=== PATIENT | female | born 1955 | race Caucasian/White ===

== ENCOUNTER 2016-07-11 10:40 | Observation (INO) ==
[2016-07-11] MEDS ORDERED: 0.9 % Sodium Chloride 1,000 ML IVC ONE (13:50)
[2016-07-11 14:24] LABS: Bilirubin,Urine Negative (Negative); Blood,Urine Negative (Negative); Clarity,Urine Clear (Clear); Color,Urine Yellow (Yellow); Glucose,Urine (UA) Normal (Normal); Ketones,Urine Negative (Negative); Leukocyte Esterase,Urine Negative (Negative); Nitrite,Urine Negative (Negative); Protein,Urine 30 mg/dL (Neg-Trace); Specific Gravity,Urine 1.023 (1.010-1.025); Urobilinogen,Urine Normal (Normal)
[2016-07-11 14:25] LABS: Basophils # 0.1 K/mcL (0.0-0.2); Basophils % 0.2 %; Hematocrit 35.2 % (35.3-44.9); Hemoglobin 11.2 g/dL (11.5-15.4); Immature Granulocytes % 1.4 % (0-4); Immature Platelets 5.8 % (1.1-6.1); Lymphocytes # 2.1 K/mcL (0.6-4.6); Lymphocytes % 8.5 %; Mean Corpuscular HGB Conc 31.8 g/dL (31.6-35.5); Mean Corpuscular Hemoglobin 26.3 pg (28.0-33.3); Mean Corpuscular Volume 82.6 fL (83.0-100.0); Mean Platelet Volume 10.5 fL (9.4-12.4); Monocytes # 1.2 K/mcL (0.0-1.3); Monocytes % 4.9 %; Neutrophils # 20.8 K/mcL (1.6-8.9); Platelet Count 337 K/mcL (140-400); Red Blood Count 4.26 M/mcL (3.82-4.97); Red Cell Distribution Width 15.5 % (11.5-14.5)
[2016-07-11 14:27] LABS: Bacteria,Urine None Seen per hpf (None-Few); Hyaline Casts,Urine None Seen per lpf (None-Few); RBC,Urine 0-3 per hpf (0-3); Squamous Epithelial Cell,Urine Many per lpf (None-Few)
[2016-07-11 14:40] LABS: Alanine Aminotransferase 14 Units/L (0-55); Albumin 3.4 g/dL (3.5-5.0); Albumin/Globulin Ratio 0.7 (1.1-2.2); Alkaline Phosphatase 107 Units/L (38-126); Aspartate Amino Transferase 11 Units/L (5-34); BUN/Creatinine Ratio 20 (6-26); Bilirubin,Direct 0.2 mg/dL (0.0-0.5); Bilirubin,Indirect 0.2 mg/dL (0.0-1.2); Bilirubin,Total 0.4 mg/dL (0.2-1.2); Blood Urea Nitrogen 17 mg/dL (7-20); Calcium 10.2 mg/dL (8.6-10.8); Carbon Dioxide 25 mEq/L (19-29); Chloride 101 mEq/L (98-109); Globulin 4.8 g/dL (2.4-3.5); Glucose 132 mg/dL (70-99); Lipase 21 Units/L (8-78); Osmolality,Calculated 291 (280-300); Potassium 3.9 mEq/L (3.5-4.5); Sodium 139 mEq/L (136-145); Total Protein 8.2 g/dL (6.0-8.3); eGFR For African Americans > 60 (> 60); eGFR For Non-African Americans > 60 (> 60)
[2016-07-11] MEDS ORDERED: *HR* HYDROmorphone (PF) 1 MG/ML SYRINGE IVP ONE ×2 (14:49→16:18)
[2016-07-11] MEDS ORDERED: Ondansetron 4 MG/2 ML VIAL IVP ONE (14:49)
--- NOTE | 2016-07-11 15:40 | Emergency Department Note ---
Disposition Clinical Impression: Abdominal pain, Calculus of kidney, Uncontrolled pain, Obesity, Inadequate social support, Diabetes mellitus, Renal cyst, Renal adenoma, Hypertension Disposition: Admitted As Inpatient Referrals: Terrance Mariano MD [Primary Care Provider] - Forms: Work/School Release, ED Satisfaction Letter General Adult HPI - General Chief complaint: ED Abdominal Pain Stated complaint: abd pain Time Seen by Provider: 07/11/16 13:50 Source: patient, EMS Limitations: no limitations - History of Present Illness HPI Narrative: 60-year-old female reports emergency department complaining of severe right rib and flank pain. The patient reports she has a history of kidney stones. She also has a history of recent lumbar surgery about 2 months ago at [facility]. The patient reports she was seen by her urologist last Saturday. She reports she had persistent pain and went to urgent care Saturday evening. She followed up early this week with her primary care physician for the same concern. She reports the pain started worsening yesterday. The patient is diabetic and lives alone at home, she reports her pain is been uncontrolled, she called EMS and was transferred to the ED for evaluation. The patient denies any anterior chest pain or left arm and left jaw pain. She describes right rib pain anterior abdominal pain under the right ribs and some flank pain. The patient had recent spinal surgery about 2 months ago but denies any lower back pain bowel or bladder problems or acute weakness or numbness in the legs. There is no history of vomiting or diarrhea no fever cough runny nose or ear pain or sore throat no rashes. The patient reports increasing pain in the right flank rib and anterior upper abdominal area. She has never had a cholecystectomy or suni gallbladder problems. The patient reports the pain is constant and also worsens with movement. There is no history of sciatica. No recent falls or injuries. Pain Scale: 10 - Related Data Home Medications Medication Instructions Recorded Confirmed Aspirin 81 mg PO DAILY 07/11/16 07/11/16 Atorvastatin [Lipitor] 5 mg PO HS 07/11/16 07/11/16 Carvedilol [Coreg] 25 mg PO BID 07/11/16 07/11/16 Folic Acid 1 mg PO DAILY 07/11/16 07/11/16 Gabapentin [Gabapentin] 600 mg PO BID 07/11/16 07/11/16 Hydrochlorothiazide 12.5 mg PO DAILY 07/11/16 07/11/16 LORazepam [Ativan] 1 mg PO DAILY PRN 07/11/16 07/11/16 Latanoprost [Xalatan] 1 drop BOTH EYES HS 07/11/16 07/11/16 Leflunomide [Arava] 20 mg PO DAILY 07/11/16 07/11/16 MethylPREDNISolone 4 mg PO PER PKG DI 07/11/16 07/11/16 [Methylprednisolone] Ondansetron HCl [Zofran] 4 mg PO Q8H PRN 07/11/16 07/11/16 Potassium Chloride [Klor-Con 10] 10 meq PO BID 07/11/16 07/11/16 SitaGLIPtin [Januvia] 100 mg PO DAILY 07/11/16 07/11/16 Allergies Allergy/AdvReac Type Severity Reaction Status Date / Time levofloxacin [From Levaquin] Allergy See Verified 01/07/16 00:43 Comments sulfamethoxazole Allergy See Verified 01/07/16 00:43 [From Bactrim] Comments trimethoprim [From Bactrim] Allergy See Verified 01/07/16 00:43 Comments All systems ED: reviewed and negative except as stated. Past Medical History - Past Medical History Medical history: Reports: diabetes, hypertension, kidney stones, RA Psychiatric history: Reports: no psych history PRODUCTION ANALYST history: Reports: no PRODUCTION ANALYST history - Social History Smoking Status: Never smoker Smokeless Tobacco Status: No Alcohol use: Reports: none Drug use: Reports: none Physical Exam - General Limitations: no limitations General appearance: alert, anxious - Head Head exam: atraumatic, normocephalic, normal inspection - Eye Eye exam: Present: normal appearance, PERRL, EOMI. Absent: scleral icterus, conjunctival injection, miosis, mydriasis - ENT ENT exam: normal exam, normal oropharynx, mucous membranes moist, TM's normal bilaterally, normal external ear exam - Neck Neck exam: Present: normal inspection, full ROM, trachea midline. Absent: tenderness - Chest Chest inspection: Present: normal inspection, symmetric chest wall rise, tenderness, other (No trauma crepitance or step-off, no evidence of injury.). Absent: rash - Respiratory Respiratory exam: Present: normal lung sounds bilaterally. Absent: respiratory distress - Cardiovascular Cardiovascular exam: Present: regular rate, normal rhythm, normal heart sounds - Abdominal Exam Abdominal exam: Present: soft, tenderness, normal bowel sounds. Absent: distention, guarding, rigidity Abdominal tenderness: Present: RUQ, moderate. Absent: epigastrium - Extremities Exam Extremities exam: Present: normal inspection, full ROM, normal capillary refill. Absent: tenderness, pedal edema, joint swelling, calf tenderness - Expanded Lower Extremity Exam Lower leg exam: Absent: Homans' sign Neurovascular/Tendon exam: Absent: motor deficit, sensory deficit, tendon deficit, extremity cold to touch - Back Exam Back exam: Present: normal inspection, full ROM, vertebral tenderness. Absent: tenderness, CVA tenderness (R), CVA tenderness (L), straight leg raise (R), straight leg raise (L) - Neurological Exam Neurological exam: Present: alert, oriented X3, CN II-XII intact. Absent: motor sensory deficit - Psychiatric Psychiatric exam: Present: normal affect, normal mood - Skin Skin exam: Present: warm, dry, intact, normal color. Absent: rash, cyanosis, diaphoresis, erythema, pallor, mottled Course Vital Signs Temperature 98.6 F 07/11/16 11:02 Pulse Rate 82 07/11/16 11:02 Respiratory Rate 16 07/11/16 11:02 Blood Pressure 163/93 07/11/16 11:02 O2 Sat by Pulse Oximetry 99 07/11/16 11:02 Temperature 98.6 F 07/11/16 11:02 Pulse Rate 72 07/11/16 18:04 Respiratory Rate 18 07/11/16 14:15 Blood Pressure 159/91 07/11/16 18:04 O2 Sat by Pulse Oximetry 96 07/11/16 18:04 Oxygen Delivery Oxygen Delivery Room Air Medical Decision Making - [facility] Narrative Medical decision making narrative: Patient was monitored in the emergency department and was given 2 doses of Dilaudid. She still had significant pain. This is the patient's fourth visit to a provider in the last several days for a similar complaint. The patient has marked leukocytosis, had recent back surgery, and has persistent flank pain not been responding to outpatient medications. The patient is elderly, lives alone at home, and does not appear to be able to manage her pain at home. She does not think she can go home secondary to the pain. Based on her recurrent visits and pain significant enough to drive her diastolic pressure to 115, I thought it would be appropriate to observe the patient the hospital for pain control and further evaluation for myelitis or other pathologies if deemed necessary. She is afebrile and her lactate is negative. Her leukocytosis may be demargination or secondary to steroids or possibly undetected infection. Her urinalysis does not indicate significant infection. Compared to her previous scan, the patient appears to have either passed a kidney stone on the right or possibly is still experiencing renal colic. In addition the patient has what appears to be a renal adenoma and renal cysts. The patient was given vancomycin and Zosyn as initial antibiotic therapy I have discussed case with the hospitalist on-call who recommends renal ultrasound and is accepted the patient for admission. - Lab Data Lab results reviewed: Yes I reviewed the patient's lab results. Result diagrams: 07/11/16 14:11 07/11/16 14:11 Lab Results 07/11/16 07/11/16 07/11/16 Range/Units 13:04 14:10 14:11 WBC 24.4 H (4.3-11.1) K/mcL RBC 4.26 (3.82-4.97) M/mcL Hgb 11.2 L (11.5-15.4) g/dL Hct 35.2 L (35.3-44.9) % MCV 82.6 L (83.0-100.0) fL MCH 26.3 L (28.0-33.3) pg MCHC 31.8 (31.6-35.5) g/dL RDW 15.5 H (11.5-14.5) % Plt Count 337 (140-400) K/mcL MPV 10.5 (9.4-12.4) fL Immature Gran % 1.4 (0-4) % Seg Neutrophils % 85.0 % Lymphocytes % 8.5 % Monocytes % 4.9 % Eosinophils % 0.0 % Basophils % 0.2 % Neutrophils # 20.8 H (1.6-8.9) K/mcL Lymphocytes # 2.1 (0.6-4.6) K/mcL Monocytes # 1.2 (0.0-1.3) K/mcL Eosinophils # 0.0 (0.0-0.6) K/mcL Basophils # 0.1 (0.0-0.2) K/mcL Immature Plt Fraction 5.8 (1.1-6.1) % Sodium (136-145) mEq/L Potassium (3.5-4.5) mEq/L Chloride (98-109) mEq/L Carbon Dioxide (19-29) mEq/L BUN (7-20) mg/dL Creatinine (0.57-1.11) mg/dL Est GFR ( Amer) (> 60) Est GFR (Non-Af Amer) (> 60) BUN/Creatinine Ratio (6-26) Glucose (70-99) mg/dL Calculated Osmolality (280-300) Lactic Acid (0.5-2.2) mmol/L Calcium (8.6-10.8) mg/dL Total Bilirubin (0.2-1.2) mg/dL Direct Bilirubin (0.0-0.5) mg/dL Indirect Bilirubin (0.0-1.2) mg/dL AST (5-34) Units/L ALT (0-55) Units/L Alkaline Phosphatase (38-126) Units/L Troponin I (0-0.03) ng/mL C-Reactive Protein 9 H (Less than 5) mg/L Serum Total Protein (6.0-8.3) g/dL Albumin (3.5-5.0) g/dL Globulin (2.4-3.5) g/dL Albumin/Globulin Ratio (1.1-2.2) Lipase (8-78) Units/L Urine Color Yellow (Yellow) Urine Clarity Clear (Clear) Urine pH 5.0 (5.0-8.0) pH Units Ur Specific Warren 1.023 (1.010-1.025) Urine Protein 30 H (Neg-Trace) mg/dL Urine Glucose (UA) Normal (Normal) mg/dL Urine Ketones Negative (Negative) mg/dL Urine Blood Negative (Negative) Urine Nitrite Negative (Negative) Urine Bilirubin Negative (Negative) Urine Urobilinogen Normal (Normal) mg/dL Ur Leukocyte Esterase Negative (Negative) Urine Microscopic RBC 0-3 (0-3) per hpf Urine Microscopic WBC 3-5 H (0-3) per hpf Ur Squamous Epith Cells Many H (None-Few) per lpf Urine Bacteria None Seen (None-Few) per hpf Hyaline Casts None Seen (None-Few) per lpf Ur Culture Indicated? NO (NO) 07/11/16 07/11/16 07/11/16 Range/Units 14:11 14:11 15:12 WBC (4.3-11.1) K/mcL RBC (3.82-4.97) M/mcL Hgb (11.5-15.4) g/dL Hct (35.3-44.9) % MCV (83.0-100.0) fL MCH (28.0-33.3) pg MCHC (31.6-35.5) g/dL RDW (11.5-14.5) % Plt Count (140-400) K/mcL MPV (9.4-12.4) fL Immature Gran % (0-4) % Seg Neutrophils % % Lymphocytes % % Monocytes % % Eosinophils % % Basophils % % Neutrophils # (1.6-8.9) K/mcL Lymphocytes # (0.6-4.6) K/mcL Monocytes # (0.0-1.3) K/mcL Eosinophils # (0.0-0.6) K/mcL Basophils # (0.0-0.2) K/mcL Immature Plt Fraction (1.1-6.1) % Sodium 139 (136-145) mEq/L Potassium 3.9 (3.5-4.5) mEq/L Chloride 101 (98-109) mEq/L Carbon Dioxide 25 (19-29) mEq/L BUN 17 (7-20) mg/dL Creatinine 0.84 (0.57-1.11) mg/dL Est GFR ( Amer) > 60 (> 60) Est GFR (Non-Af Amer) > 60 (> 60) BUN/Creatinine Ratio 20 (6-26) Glucose 132 H (70-99) mg/dL Calculated Osmolality 291 (280-300) Lactic Acid 2.1 (0.5-2.2) mmol/L Calcium 10.2 (8.6-10.8) mg/dL Total Bilirubin 0.4 (0.2-1.2) mg/dL Direct Bilirubin 0.2 (0.0-0.5) mg/dL Indirect Bilirubin 0.2 (0.0-1.2) mg/dL AST 11 (5-34) Units/L ALT 14 (0-55) Units/L Alkaline Phosphatase 107 (38-126) Units/L Troponin I 0.00 (0-0.03) ng/mL C-Reactive Protein (Less than 5) mg/L Serum Total Protein 8.2 (6.0-8.3) g/dL Albumin 3.4 L (3.5-5.0) g/dL Globulin 4.8 H (2.4-3.5) g/dL Albumin/Globulin Ratio 0.7 L (1.1-2.2) Lipase 21 (8-78) Units/L Urine Color (Yellow) Urine Clarity (Clear) Urine pH (5.0-8.0) pH Units Ur Specific Warren (1.010-1.025) Urine Protein (Neg-Trace) mg/dL Urine Glucose (UA) (Normal) mg/dL Urine Ketones (Negative) mg/dL Urine Blood (Negative) Urine Nitrite (Negative) Urine Bilirubin (Negative) Urine Urobilinogen (Normal) mg/dL Ur Leukocyte Esterase (Negative) Urine Microscopic RBC (0-3) per hpf Urine Microscopic WBC (0-3) per hpf Ur Squamous Epith Cells (None-Few) per lpf Urine Bacteria (None-Few) per hpf Hyaline Casts (None-Few) per lpf Ur Culture Indicated? (NO) - Radiology Data Radiology results reviewed: Yes I reviewed the patient's radiology results.
[2016-07-11] MEDS ORDERED: Vancomycin 1,000 MG in D5% in Water 250 ML IVPB ONE (19:31)
[2016-07-11] MEDS ORDERED: Piperacillin/Tazobactam 3.375 GM in D5% in Water (Mini-Bag+) 100 ML IVPB ONE (19:32)
--- NOTE | 2016-07-11 20:59 | Internal Med History&Physical ---
<Sylvia Pacheco - Last Filed: 07/11/16 23:10> Date of Encounter: 07/11/16 Time of Encounter: 20:30 Assessment and Plan (1) Right flank pain Current visit: Yes Status: Acute Patient complains of severe Right flank pain that radiates to the back. CT abdomen/pelvis showed multiple bilateral renal cyst, an nonobstructing renal pole calculus on the left with no evidence of ureteral calculus. Retroperitoneal ultrasound showed kidneys of normal thickness and cortical echogenicity with no hydronephrosis CXR showed no acute process. Etiology of right flank pain unclear at this time. Consider possible pancreatitis, gastric ulcer, or stone in biliary tree. Monitor with morning CBC, CMP, LFTs, amylase,lipase, lipid panel. IVF, clear liquid diet Zofran for nausea pain control with morphine and percocet Zanaflex. (2) Leukocytosis Current visit: Yes Status: Acute WBC 24.4 Likely reactive secondary to medrol dose pack. Patient does not currently meet sepsis criteria. She is afebrile, and vitals are within normal limits except for mild hypertension. repeat urine culture and blood culture pending. Continue to monitor. Qualifiers: Leukocytosis type: unspecified Qualified Code(s): D72.829 - Elevated white blood cell count, unspecified (3) GERD (gastroesophageal reflux disease) Current visit: Yes Status: Acute Protonix Qualifiers: Esophagitis presence: esophagitis presence not specified Qualified Code(s) : K21.9 - Gastro-esophageal reflux disease without esophagitis (4) Rheumatoid arthritis Current visit: Yes Status: Chronic Continue home medication Qualifiers: Rheumatoid arthritis location: knee Rheumatoid factor presence: unspecified presence Laterality: unspecified laterality Qualified Code(s): M06.9 - Rheumatoid arthritis, unspecified (5) Diabetes mellitus Current visit: Yes Status: Chronic hold Januvia Sugar appears well controlled currently. Low dose sliding scale insulin clear liquid diet. Qualifiers: Diabetes mellitus type: type 2 Diabetes mellitus complication status: with unspecified complications Diabetes mellitus jail insulin use: unspecified jail insulin use status Qualified Code(s): E11.8 - Type 2 diabetes mellitus with unspecified complications (6) Hypertension Current visit: Yes Status: Chronic patient has essential HTN, and is currently Hypertensive, likely due to pain. Pain control Holding HCTZ until pancreatitis ruled out. Qualifiers: Hypertension type: essential hypertension Qualified Code(s): I10 - Essential (primary) hypertension (7) Obesity Current visit: Yes Status: Acute Qualifiers: Obesity type: due to excess calories Obesity severity: non-morbid Qualified Code(s): E66.09 - Other obesity due to excess calories (8) DVT prophylaxis Current visit: Yes Status: Acute heparin 5,000 units SQ Q8HR Protonix for GI prophylaxis Internal Medicine - H&P: HPI Chief complaint: right flank pain Admitted From: Emergency Dept Plans for Post Hospital Care: Home History of present illness: PCP: Terrance Wheat Ms. Penn is a 60 year old female with PMHx of DM, GERD, HTN, Rheumatoid arthriti, asthma. She started having mild right flank pain that started in May. She saw a Urologist at that time (the ), and a CT scan was ordered that sowed bilateral kidney stones. He stated the stones were not large enough for removal, so they should pass on their own. Late Saturday night, she started getting muscle spasms in her right flank area, and her flank pain was slowly getting worse. She states the pain is located under her right rib and radiates to her back, and states the severity is 8/10. She went to urgent care on Saturday and got a urinalysis. She went to her PCP yesterday and received a medrol dose pack. This morning, the pain was significantly increased so she called the squad. She reports nausea but no vomiting, reports fever and chills. Denies hematuria and hematochezia, denies syncope but reports some dizziness. She has mild intermittent shortness of breath with her pain but denies any chest pain. Social Hx: lives alone at home. Does not smoke or drink alcohol, denies illicit drug use. Family Hx: father in 80s and had CHF, moter at 76 from a stroke. Surgical Hx: right thoracotomy in September 1999, bilateral knee replacement: Left on November 2007, right on November 2012, cholecystectomy in 2009, hysterectomy in 2012 , umbillical hernia surgery in June 2011 Past Med Surg Social Fam HX - Past Medical History Medical history: diabetes, hypertension, kidney stones, RA Psychiatric history: no psych history - Social History Smoking Status: Never smoker Smokeless Tobacco Status: No Alcohol use: none Drug use: none Internal Medicine - H&P: Meds Aspirin 81 mg PO DAILY 07/11/16 [History] Atorvastatin [Lipitor] 5 mg PO HS 07/11/16 [History] Carvedilol [Coreg] 25 mg PO BID 07/11/16 [History] Folic Acid 1 mg PO DAILY 07/11/16 [History] Gabapentin [Gabapentin] 600 mg PO BID 07/11/16 [History] Hydrochlorothiazide 12.5 mg PO DAILY 07/11/16 [History] LORazepam [Ativan] 1 mg PO DAILY PRN 07/11/16 [History] Latanoprost [Xalatan] 1 drop BOTH EYES HS 07/11/16 [History] Leflunomide [Arava] 20 mg PO DAILY 07/11/16 [History] MethylPREDNISolone [Methylprednisolone] 4 mg PO PER PKG DI 07/11/16 [History] Ondansetron HCl [Zofran] 4 mg PO Q8H PRN 07/11/16 [History] Potassium Chloride [Klor-Con 10] 10 meq PO BID 07/11/16 [History] SitaGLIPtin [Januvia] 100 mg PO DAILY 07/11/16 [History] Allergies levofloxacin [From Levaquin] Allergy (Verified 01/07/16 00:43) See Comments sulfamethoxazole [From Bactrim] Allergy (Verified 01/07/16 00:43) See Comments trimethoprim [From Bactrim] Allergy (Verified 01/07/16 00:43) See Comments All Systems PM: A 10-system review of systems was performed and is negative for pertinent findings except as documented above in the HPI. - Constitutional Constitutional: chills, fever(s), no falls, no lethargy - Cardiovascular Cardiovascular ROS IM: no chest pain, no diaphoresis, no syncope - Respiratory Respiratory: no cough, no dyspnea - Gastrointestinal Gastrointestinal: abdominal pain, no diarrhea, no hematochezia, no melena - Genitourinary Genitourinary: no hematuria - Musculoskeletal Musculoskeletal ROS IM: back pain - Neurological Neurological ROS: dizziness, no frequent falls, no headache(s) - Constitutional Vitals: Temp Pulse Resp BP Pulse Ox 98.4 F 72 18 154/84 96 07/11/16 20:46 07/11/16 18:04 07/11/16 20:46 07/11/16 20:46 07/11/16 18:04 General appearance: Present: A&O X 3, pleasant, no acute distress, answers questions appropriately - Head Head exam: Present: atraumatic, normocephalic - Neck Neck exam general surgery: Present: supple, trachea midline - Respiratory Respiratory exam: Present: CTAB - Cardiovascular Cardiovascular exam: Present: RRR, +S1, +S2 - GI/Abdominal GI/Abdominal exam: Present: normal bowel sounds, tenderness (tenderness in epigastric area and RUQ, right flank. ) - Extremities Exam Extremities exam: Absent: cyanotic, pedal edema - Back Exam Back exam: Present: CVA tenderness (R), muscle spasm (on right CVA) - Neurological Exam Neurological exam: Present: alert, oriented X3, no focal deficits Internal Med - H&P Results - Labs CBC & Chem 7: 07/11/16 14:11 07/11/16 14:11 <Arjun Vanegas - Last Filed: 07/12/16 00:04> Date of Encounter: 07/11/16 Internal Medicine - H&P: HPI History of present illness: Ms. Penn is a 60 year old female - EENT Eyes: no blurry vision, no change in vision Ears: no ear pain, no tinnitus Nose, mouth and throat: no nasal congestion, no sinus pain, no sinus pressure - Cardiovascular Cardiovascular ROS IM: no chest pain, no dyspnea - Respiratory Respiratory: no cough, no dyspnea - Gastrointestinal Gastrointestinal: abdominal pain, no diarrhea, no hematochezia, no melena - Genitourinary Genitourinary: no dysuria, no hematuria - Musculoskeletal Musculoskeletal ROS IM: back pain - Integumentary Integumentary IM: no rash, no jaundice - Neurological Neurological ROS: no focal weakness, no frequent falls, no headache(s) - Psychiatric Psychiatric: no anxiety, no depression - Hematologic/Lymphatic Hematologic/Lymphatic: no easy bruising, no lymphadenopathy - Allergic/Immunologic Allergic/Immunologic: no wheezing, no GI upset with certain foods - Constitutional Vitals: Temp Pulse Resp BP Pulse Ox 97.4 F L 66 15 188/97 92 L 07/11/16 23:21 07/11/16 23:21 07/11/16 23:21 07/11/16 23:21 07/11/16 23:21 General appearance: Present: cooperative, A&O X 3, pleasant, answers questions appropriately - Eye Eye exam: Present: PERRL. Absent: scleral icterus - ENT ENT exam: Present: mucous membranes moist, normal exam - Respiratory Respiratory exam: Present: CTAB. Absent: chest wall tenderness, rales, respiratory distress, rhonchi, wheezes - Cardiovascular Cardiovascular exam: Present: RRR, +S1, +S2 - GI/Abdominal GI/Abdominal exam: Present: normal bowel sounds, soft, tenderness, no peritoneal signs. Absent: guarding, hepatomegaly, mass, rebound, splenomegaly - Extremities Exam Extremities exam: Absent: calf tenderness, joint swelling, tenderness - Back Exam Back exam: Present: muscle spasm (right posterior flank area radiating to RUQ). Absent: CVA tenderness (L), CVA tenderness (R) - Neurological Exam Neurological exam: Present: alert, CN II-XII intact, oriented X3, no focal deficits - Psychiatric Psychiatric exam: Present: normal affect, normal mood - Skin Skin exam: Present: dry, warm. Absent: rash Internal Med - H&P Results - Labs CBC & Chem 7: 07/11/16 14:11 07/11/16 14:11 - Attending Attestation I discussed the pt [place], PMH, ROS, lab data, and exam findings with Dr. Pacheco. I then saw and examined patient independently as well. CT scan reviewed, Renal U/S reviewed, lab data reviewed. I do not suspect kidney stone as source of her pain. Based upon exam and history, it does sound musculoskeletal in nature. Will also check CXR with rib views to rule out rib fracture. However, patient gives no history of fall or trauma. LFT's are unremarkable. WBC most likely due to steroid effect. No history to suggest acute infection. Pain is reproducible and spasmodic, consistent with muscular and/or skeletal etiology. I agree with pain control, muscle relaxant (Valium), and repeat labs. Discussed with patient at length. If pain does not improve and/or worsens, then consider GI or general surgery consult tomorrow. On exam, however, I have no suspicion of surgical abdomen at the present time. Other than my comments and exam findings, I agree with Dr. Pacheco' assessment and plan.
[2016-07-11] MEDS ORDERED: Ondansetron 4 MG/2 ML VIAL IVP PRN (21:21)
[2016-07-11] MEDS ORDERED: *HR* Morphine 2 MG/ML SYRINGE ONE (21:26)
[2016-07-11] MEDS: *HR* Morphine 2 MG/ML SYRINGE IVP PRN (21:27)
[2016-07-11] MEDS ORDERED: Naloxone 0.4 MG/ML INJ IVP PRN (22:13)
[2016-07-11] MEDS ORDERED: Acetaminophen 325 MG TABLET PO PRN (22:13)
[2016-07-11] MEDS ORDERED: *HR* LORazepam 1 MG TABLET PO PRN (22:21)
[2016-07-11] MEDS ORDERED: *HR* Dextrose 50 % in Water (Syg) 50 ML SYRINGE IVP PRN (22:27)
[2016-07-11] MEDS ORDERED: D5% in Water 1,000 ML IV PRN (22:27)
[2016-07-11] MEDS ORDERED: Dextrose Gel 15 GM PO PRN ×2 (22:27)
[2016-07-11] MEDS: 0.9 % Sodium Chloride 1,000 ML IVC SCH (23:00)
[2016-07-11] MEDS: Piperacillin/Tazobactam 3.375 GM in D5% in Water (Mini-Bag+) 100 ML IVPB SCH (23:11)
[2016-07-11] MEDS: *HR* OxyCODONE/APAP 5/325 TABLET PO PRN (23:20)
[2016-07-11] MEDS ORDERED: tiZANidine 4 MG TABLET PO PRN (23:23)
[2016-07-12] MEDS: diazePAM 5 MG TABLET PO PRN ×3 (00:07→23:19)
[2016-07-12] MEDS: *HR* Heparin 5,000 UNIT/ML VIAL SQ SCH ×4 (00:55→23:16)
[2016-07-12 00:56] LABS: Bilirubin,Urine Negative (Negative); Blood,Urine Negative (Negative); Clarity,Urine Cloudy (Clear); Color,Urine Yellow (Yellow); Glucose,Urine (UA) Normal (Normal); Ketones,Urine Negative (Negative); Leukocyte Esterase,Urine Negative (Negative); Nitrite,Urine Negative (Negative); Protein,Urine Negative (Neg-Trace); Specific Gravity,Urine > 1.030 (1.010-1.025); Urobilinogen,Urine Normal (Normal)
[2016-07-12 00:57] LABS: Bacteria,Urine Moderate per hpf (None-Few); Hyaline Casts,Urine None Seen per lpf (None-Few); RBC,Urine 0-3 per hpf (0-3); Squamous Epithelial Cell,Urine Many per lpf (None-Few)
--- NOTE | 2016-07-12 01:08 | Event Note ---
Date of Encounter: 07/12/16 Time of Encounter: 01:00 Patient has continued severe right flank pain with muscle spasms. After reviewing CT, retroperitoneal ultrasound, CXR, the cause of her pain could not be determined. Rib xray was ordered and revealed chronic fracture of the right 8th rib. Will continue treatment with pain control.
[2016-07-12 01:09] LABS: Basophils # 0.1 K/mcL (0.0-0.2); Basophils % 0.4 %; Eosinophils # 0.1 K/mcL (0.0-0.6); Eosinophils % 0.5 %; Hematocrit 32.1 % (35.3-44.9); Hemoglobin 10.2 g/dL (11.5-15.4); Immature Granulocytes % 0.7 % (0-4); Lymphocytes # 2.5 K/mcL (0.6-4.6); Lymphocytes % 18.3 %; Mean Corpuscular HGB Conc 31.8 g/dL (31.6-35.5); Mean Corpuscular Hemoglobin 26.4 pg (28.0-33.3); Mean Corpuscular Volume 82.9 fL (83.0-100.0); Mean Platelet Volume 10.6 fL (9.4-12.4); Monocytes # 0.9 K/mcL (0.0-1.3); Monocytes % 6.6 %; Neutrophils # 10.1 K/mcL (1.6-8.9); Platelet Count 253 K/mcL (140-400); Red Blood Count 3.87 M/mcL (3.82-4.97); Red Cell Distribution Width 15.7 % (11.5-14.5); Segmented Neutrophils % 73.5 %
[2016-07-12 01:17] LABS: Alanine Aminotransferase 13 Units/L (0-55); Albumin/Globulin Ratio 0.8 (1.1-2.2); Alkaline Phosphatase 84 Units/L (38-126); Aspartate Amino Transferase 11 Units/L (5-34); BUN/Creatinine Ratio 20 (6-26); Bilirubin,Direct 0.2 mg/dL (0.0-0.5); Bilirubin,Indirect 0.2 mg/dL (0.0-1.2); Bilirubin,Total 0.4 mg/dL (0.2-1.2); Blood Urea Nitrogen 17 mg/dL (7-20); Calcium 9.2 mg/dL (8.6-10.8); Carbon Dioxide 24 mEq/L (19-29); Chloride 104 mEq/L (98-109); Glucose 159 mg/dL (70-99); Osmolality,Calculated 293 (280-300); Potassium 3.3 mEq/L (3.5-4.5); Sodium 139 mEq/L (136-145); eGFR For African Americans > 60 (> 60); eGFR For Non-African Americans > 60 (> 60)
[2016-07-12] MEDS: *HR* Morphine 2 MG/ML SYRINGE IVP PRN ×3 (03:24→13:51)
[2016-07-12] MEDS: *HR* OxyCODONE/APAP 5/325 TABLET PO PRN ×2 (05:22→16:58)
[2016-07-12] MEDS: Insulin LISPRO 300 UNITS/3 ML VIAL SQ SCH ×3 (08:55→16:44)
[2016-07-12] MEDS: 0.9 % Sodium Chloride 1,000 ML IVC SCH ×2 (09:09→17:04)
[2016-07-12] MEDS: Piperacillin/Tazobactam 3.375 GM in D5% in Water (Mini-Bag+) 100 ML IVPB SCH ×3 (09:10→23:14)
[2016-07-12] MEDS: Pantoprazole 40 MG VIAL IVP SCH (09:10)
[2016-07-12] MEDS: Folic Acid 1 MG TABLET PO SCH (10:36)
[2016-07-12] MEDS: Aspirin 81 MG TAB.CHEW PO SCH (10:36)
[2016-07-12] MEDS: (Leflunomide [Arava] 20 MG) PO SCH (10:38)
[2016-07-12] MEDS: Gabapentin 300 MG CAPSULE PO SCH ×2 (10:38→20:09)
--- NOTE | 2016-07-12 12:29 | Event Note ---
<Darling Palma - Last Filed: 07/12/16 12:49> Date of Encounter: 07/12/16 Time of Encounter: 09:30 Pt continues to have nausea and R anterior 9/10 rib pain. Pt was unable to eat breakfast due to nausea. Pt has chronic R 8th rib fracture that pt states was broken when she had a pneumothorax "years ago". Discussed plan of care with pt, will attempt to control pain and nausea so she can eat and move comfortably prior to discussing discharge, she agrees. <Pascale Lacy - Last Filed: 07/12/16 12:55> Date of Encounter: 07/12/16 Chest x-ray negative. Abdominal pelvic CT negative for acute processes and revealing nonobstructive renal calculi. Lumbar spine CT unremarkable. Retroperitoneal ultrasound unremarkable. Rib x-ray consistent with chronic right eighth rib fracture. Patient stating she had a pneumothorax several years ago and states that her rib was broken to put a chest tube in place ( unable to confirm history of events). Suspect pain 2/2 old rib fracture with acute strain to intercostal muscles. Continue pain control- will add incentive spirometry. ITS Impressions Chest X-Ray 07/11/16 13:51 IMPRESSION: No evidence of acute cardiopulmonary disease. D/ / Douglas Hernandez MD / Douglas Hernandez MD Interpreting Provider: Douglas Hernandez MD Abdomen/Pelvis CT 07/11/16 15:14 IMPRESSION: 1. Diverticulosis without diverticulitis. 2. Cholecystectomy. 3. Bilateral renal cysts. 4. Stable left adrenal adenoma. 5. Fat containing anterior abdominal wall hernia. 6. There is a 3-4 mm nonobstructing left renal inferior pole calculus. D/ / 07/11/2016 16:24:15 Thong Larios MD / Hannah Burr Interpreting Provider: Thong Larios MD Lumbar Spine CT 07/11/16 15:14 IMPRESSION: No evidence of acute lumbar spine fracture. Postsurgical changes from fixation and posterior decompression of L2 through S1. No evidence of hardware complication. L3 superior endplate fragmentation with 4 mm retropulsion of the fracture fragments is unchanged. D/ / 07/11/2016 16:30:45 Nikolai Morejon MD / Hannah Burr Interpreting Provider: Nikolai Morejon MD Retroperitoneum Ultrasound 07/11/16 19:44 IMPRESSION: Unremarkable ultrasound of the kidneys and urinary bladder. D/ / Douglas Catherine MD / Douglas Catherine MD Interpreting Provider: Douglas Catherine MD Ribs X-Ray 07/12/16 23:55 IMPRESSION: 1. Chronic fracture involving the right 8th rib. 2. No evidence of a displaced left-sided rib fracture. D/ / James Ricci MD / James Ricci MD Interpreting Provider: James Ricci MD
[2016-07-12] MEDS ORDERED: Insulin LISPRO 300 UNITS/3 ML VIAL SQ SCH (21:00)
[2016-07-12] MEDS ORDERED: Latanoprost 2.5 ML BOTTLE BOTH EYES SCH (21:00)
[2016-07-13] MEDS: 0.9 % Sodium Chloride 1,000 ML IVC SCH (02:00)
[2016-07-13] MEDS: *HR* OxyCODONE/APAP 5/325 TABLET PO PRN (03:52)
[2016-07-13 05:22] LABS: Basophils % 0.5 %; Eosinophils # 0.3 K/mcL (0.0-0.6); Eosinophils % 3.8 %; Hematocrit 32.2 % (35.3-44.9); Hemoglobin 9.8 g/dL (11.5-15.4); Immature Granulocytes % 0.5 % (0-4); Lymphocytes # 2.3 K/mcL (0.6-4.6); Lymphocytes % 28.4 %; Mean Corpuscular HGB Conc 30.4 g/dL (31.6-35.5); Mean Corpuscular Hemoglobin 25.7 pg (28.0-33.3); Mean Corpuscular Volume 84.5 fL (83.0-100.0); Mean Platelet Volume 11.3 fL (9.4-12.4); Monocytes # 0.8 K/mcL (0.0-1.3); Monocytes % 9.4 %; Neutrophils # 4.7 K/mcL (1.6-8.9); Platelet Count 231 K/mcL (140-400); Red Blood Count 3.81 M/mcL (3.82-4.97); Red Cell Distribution Width 15.9 % (11.5-14.5); Segmented Neutrophils % 57.4 %
[2016-07-13 05:43] LABS: BUN/Creatinine Ratio 18 (6-26); Blood Urea Nitrogen 15 mg/dL (7-20); Calcium 8.5 mg/dL (8.6-10.8); Carbon Dioxide 22 mEq/L (19-29); Chloride 108 mEq/L (98-109); Glucose 109 mg/dL (70-99); Magnesium 1.6 mg/dL (1.6-2.6); Osmolality,Calculated 293 (280-300); Sodium 141 mEq/L (136-145); eGFR For African Americans > 60 (> 60); eGFR For Non-African Americans > 60 (> 60)
[2016-07-13 05:58] LABS: Potassium 3.7 mEq/L (3.5-4.5)
[2016-07-13] MEDS: *HR* Heparin 5,000 UNIT/ML VIAL SQ SCH (06:29)
[2016-07-13] MEDS: Insulin LISPRO 300 UNITS/3 ML VIAL SQ SCH (09:13)
[2016-07-13] MEDS: (Leflunomide [Arava] 20 MG) PO SCH (09:13)
[2016-07-13] MEDS: Gabapentin 300 MG CAPSULE PO SCH (09:18)
[2016-07-13] MEDS: Pantoprazole 40 MG VIAL IVP SCH (09:18)
[2016-07-13] MEDS: Aspirin 81 MG TAB.CHEW PO SCH (09:18)
[2016-07-13] MEDS: Folic Acid 1 MG TABLET PO SCH (09:19)
[2016-07-13] MEDS: Piperacillin/Tazobactam 3.375 GM in D5% in Water (Mini-Bag+) 100 ML IVPB SCH (09:19)
--- NOTE | 2016-07-13 09:49 | Discharge Summary ---
Date of Encounter: 07/13/16 Time of Encounter: 09:30 - Discharge Diagnosis (1) Hypokalemia Priority: Primary Status: Resolved (2) Abdominal pain Priority: Primary Status: Acute Comments: Patient stating her pain was controlled on day of discharge with Percocet and Valium combined. Chest x-ray negative. Abdominal pelvic CT negative for acute processes and revealing nonobstructive renal calculi. Lumbar spine CT unremarkable. Retroperitoneal ultrasound unremarkable. Rib x-ray consistent with chronic right eighth rib fracture. Patient stating she had a pneumothorax several years ago and states that her rib was broken to put a chest tube in place (unable to confirm history of events). Suspect pain 2/2 old rib fracture with acute strain to intercostal muscles. Recommended outpatient follow-up. ITS Impressions Chest X-Ray 07/11/16 13:51 IMPRESSION: No evidence of acute cardiopulmonary disease. D/ / Douglas Hernandez MD / Douglas Hernandez MD Interpreting Provider: Douglas Hernandez MD Abdomen/Pelvis CT 07/11/16 15:14 IMPRESSION: 1. Diverticulosis without diverticulitis. 2. Cholecystectomy. 3. Bilateral renal cysts. 4. Stable left adrenal adenoma. 5. Fat containing anterior abdominal wall hernia. 6. There is a 3-4 mm nonobstructing left renal inferior pole calculus. D/ / 07/11/2016 16:24:15 Thong Larios MD / Hannah Burr Interpreting Provider: Thong Larios MD Lumbar Spine CT 07/11/16 15:14 IMPRESSION: No evidence of acute lumbar spine fracture. Postsurgical changes from fixation and posterior decompression of L2 through S1. No evidence of hardware complication. L3 superior endplate fragmentation with 4 mm retropulsion of the fracture fragments is unchanged. D/ / 07/11/2016 16:30:45 Nikolai Morejon MD / Hannah Burr Interpreting Provider: Nikolai Morejon MD Retroperitoneum Ultrasound 07/11/16 19:44 IMPRESSION: Unremarkable ultrasound of the kidneys and urinary bladder. D/ / Douglas Catherine MD / Douglas Catherine MD Interpreting Provider: Douglas Catherine MD Ribs X-Ray 07/12/16 23:55 IMPRESSION: 1. Chronic fracture involving the right 8th rib. 2. No evidence of a displaced left-sided rib fracture. D/ / James Ricci MD / James Ricci MD Interpreting Provider: James Ricci MD (3) Calculus of kidney Priority: Secondary Status: Chronic Comments: nonobstructive (4) DVT prophylaxis Priority: Primary Status: Acute Comments: Subcutaneous heparin (5) GERD (gastroesophageal reflux disease) Priority: Secondary Status: Chronic Comments: Denies current symptoms, will add PPI to her daily regimen Qualifiers: Esophagitis presence: esophagitis presence not specified Qualified Code(s) : K21.9 - Gastro-esophageal reflux disease without esophagitis (6) Leukocytosis Priority: Primary Status: Resolved Comments: No acute infectious process is identified, suspect secondary to stress Qualifiers: Leukocytosis type: unspecified Qualified Code(s): D72.829 - Elevated white blood cell count, unspecified (7) Obesity Priority: Secondary Status: Chronic Qualifiers: Obesity type: due to excess calories Obesity severity: non-morbid Qualified Code(s): E66.09 - Other obesity due to excess calories (8) Right flank pain Priority: Primary Status: Resolved Comments: Results/ruled out. Urinalysis negative, abdominal CT unremarkable without signs of acute pyelonephritis. Patient did not have flank pain while admitted, she had right upper quadrant/lower rib pain (9) Uncontrolled pain Priority: Primary Status: Resolved Comments: Agents and accommodation of Valium and Percocet helped her pain. OARRS report negative (10) Diabetes mellitus Priority: Secondary Status: Chronic Comments: Controlled, recent A1c 5.7%. Follow-up outpatient. Qualifiers: Diabetes mellitus type: type 2 Diabetes mellitus complication status: with unspecified complications Diabetes mellitus intermediate designer insulin use: unspecified longterm insulin use status Qualified Code(s): E11.8 - Type 2 diabetes mellitus with unspecified complications (11) Hypertension Priority: Secondary Status: Chronic Comments: Slightly hypertensive on day of discharge however the patient's HCTZ was not continue while admitted, will continue upon discharge and have her check her blood pressure daily at home, keep a log, and follow-up outpatient. Qualifiers: Hypertension type: essential hypertension Qualified Code(s): I10 - Essential (primary) hypertension (12) Rheumatoid arthritis Priority: Secondary Status: Chronic Qualifiers: Rheumatoid arthritis location: knee Rheumatoid factor presence: unspecified presence Laterality: unspecified laterality Qualified Code(s): M06.9 - Rheumatoid arthritis, unspecified - Discharge Medications Prescriptions: OxyCODONE/APAP 5/325 [Percocet 5/325 MG] 1 each PO Q6HR PRN #20 tablet PRN Reason: Pain Diazepam [Valium] 5 mg PO Q8H PRN #12 tablet PRN Reason: Spasms Omeprazole [PriLOSEC] 20 mg PO DAILY #30 cap Home Medications: Aspirin 81 mg PO DAILY 07/11/16 [History] Atorvastatin [Lipitor] 5 mg PO HS 07/11/16 [History] Carvedilol [Coreg] 25 mg PO BID 07/11/16 [History] Folic Acid 1 mg PO DAILY 07/11/16 [History] Gabapentin 600 mg PO BID 07/11/16 [History] Hydrochlorothiazide 12.5 mg PO DAILY 07/11/16 [History] LORazepam [Ativan] 1 mg PO DAILY PRN 07/11/16 [History] Latanoprost [Xalatan] 1 drop BOTH EYES HS 07/11/16 [History] Leflunomide [Arava] 20 mg PO DAILY 07/11/16 [History] MethylPREDNISolone [Methylprednisolone] 4 mg PO PER PKG DI 07/11/16 [History] Ondansetron HCl [Zofran] 4 mg PO Q8H PRN 07/11/16 [History] Potassium Chloride [Klor-Con 10] 10 meq PO BID 07/11/16 [History] SitaGLIPtin [Januvia] 100 mg PO DAILY 07/11/16 [History] Diazepam [Valium] 5 mg PO Q8H PRN #12 tablet 07/13/16 [Rx] Omeprazole [PriLOSEC] 20 mg PO DAILY #30 cap 07/13/16 [Rx] OxyCODONE/APAP 5/325 [Percocet 5/325 MG] 1 each PO Q6HR PRN #20 tablet 07/13/16 [Rx] Allergies/Adverse Reactions: Allergies levofloxacin [From Levaquin] Allergy (Verified 01/07/16 00:43) See Comments sulfamethoxazole [From Bactrim] Allergy (Verified 01/07/16 00:43) See Comments trimethoprim [From Bactrim] Allergy (Verified 01/07/16 00:43) See Comments Date of admission: 07/11/16 19:46 Primary care physician: Terrance Mariano MD Discharging clinician: Pascale Linton Anticipated date of discharge: 07/13/16 - Patient Status Disposition: Home, Self-Care Condition: Fair Functional capacity at discharge: independent ambulation Overall status at discharge: patient is back to baseline - Discharge Instructions Follow Up With: Terrance Mariano MD [Primary Care Provider] - Additional Instructions: Follow-up with primary care provider in one to 2 weeks - Diet and Activity Activity: increase activity as tolerated Diet: diabetic diet, low salt diet Hospital course: Ms. Penn is a 60 year old female with past medical history of diabetes, GERD , hypertension, rheumatoid arthritis, asthma. Patient presented to the emergency department chief complaint right flank pain since May. Patient states she saw a urologist at that time and stated a CT scan at that time showed bilateral kidney stones but were not large enough for removal and she was allegedly told that they would pass on their own. 5 days prior to presentation, patient began to have muscle spasms in her right flank area and her flank pain had gotten progressively worse prompting her presentation. Patient also stating the pain is located under her right ribs and radiates to her back. Patient was seen at urgent care 3 days prior to presentation were a urinalysis that was reported as negative. She then saw her primary care provider on the day prior to presentation where she received a Medrol Dosepak. On the morning of presentation, her pain was significantly worse so she called 911. Patient reports nausea without vomiting, fever and chills. Patient denies hematuria or syncope. Workup in the emergency department unremarkable. Chest x-ray negative. Abdominal pelvic CT negative for acute processes and revealing nonobstructive renal calculi. Lumbar spine CT unremarkable. Retroperitoneal ultrasound unremarkable. Patient was admitted to the hospitalist service for further evaluation and management. She was noted to have point tenderness to her right lower anterior rib cage and a rib x-ray was obtained which revealed chronic right eighth rib fracture. Patient stating she had a pneumothorax several years ago and states that her rib was broken to put a chest tube in place (unable to confirm history of events). Her pain was then suspected to be related to (rib fracture with acute strain to her intercostal muscles and subsequent muscle spasms around her flank. Pain and nausea were controlled during this admission and she was able to tolerate a regular diet. She was discharged home in stable condition with a couple days' worth of Percocet and Valium. She was instructed to follow up outpatient. ITS Impressions Chest X-Ray 07/11/16 13:51 IMPRESSION: No evidence of acute cardiopulmonary disease. D/ / Douglas Hernandez MD / Douglas Hernandez MD Interpreting Provider: Douglas Hernandez MD Abdomen/Pelvis CT 07/11/16 15:14 IMPRESSION: 1. Diverticulosis without diverticulitis. 2. Cholecystectomy. 3. Bilateral renal cysts. 4. Stable left adrenal adenoma. 5. Fat containing anterior abdominal wall hernia. 6. There is a 3-4 mm nonobstructing left renal inferior pole calculus. D/ / 07/11/2016 16:24:15 Thong Larios MD / Hannah Burr Interpreting Provider: Thong Larios MD Lumbar Spine CT 07/11/16 15:14 IMPRESSION: No evidence of acute lumbar spine fracture. Postsurgical changes from fixation and posterior decompression of L2 through S1. No evidence of hardware complication. L3 superior endplate fragmentation with 4 mm retropulsion of the fracture fragments is unchanged. D/ / 07/11/2016 16:30:45 Nikolai Morejon MD / Hannah Burr Interpreting Provider: Nikolai Morejon MD Retroperitoneum Ultrasound 07/11/16 19:44 IMPRESSION: Unremarkable ultrasound of the kidneys and urinary bladder. D/ / Douglas Catherine MD / Douglas Catherine MD Interpreting Provider: Douglas Catherine MD Ribs X-Ray 07/12/16 23:55 IMPRESSION: 1. Chronic fracture involving the right 8th rib. 2. No evidence of a displaced left-sided rib fracture. D/ / James Ricci MD / James Ricci MD Interpreting Provider: James Ricci MD - Time Spent with Patient Total time spent providing and/or coordinating discharge services: - Constitutional Vitals: Temp Pulse Resp BP Pulse Ox 97.5 F L 67 16 180/93 98 07/13/16 07:43 07/13/16 07:43 07/13/16 07:43 07/13/16 07:43 07/13/16 07:43 General appearance: Present: cooperative, A&O X 3, pleasant, no acute distress, answers questions appropriately - Head Head exam: Present: atraumatic, normocephalic - Eye Eye exam: Present: PERRL, conjuntiva pink, sclera anicteric Pupils: Present: PERRL - Neck Neck exam general surgery: Present: supple, trachea midline. Absent: lymphadenopathy - Respiratory Respiratory exam: Present: chest wall tenderness, CTAB. Absent: accessory muscle use, rales, respiratory distress, rhonchi, wheezes - Cardiovascular Cardiovascular exam: Present: RRR, +S1, +S2. Absent: diastolic murmur, gallop, rubs, systolic murmur - GI/Abdominal GI/Abdominal exam: Present: normal bowel sounds, soft, no peritoneal signs. Absent: distended, tenderness - Extremities Exam Extremities exam: Present: warm, radial pulses palpable and symetrical. Absent : calf tenderness, cyanotic, pedal edema - Neurological Exam Neurological exam: Present: alert, CN II-XII intact, oriented X3, no focal deficits, strengths equal and symetr throughout. Absent: pronater drift, facial droop, speech deficit - Skin Skin exam: Present: dry, intact, normal color, warm
[2016-07-13 11:25] VITALS: BP 165/96
--- NOTE | 2016-07-13 15:27 | Electrocardiograph Report ---
[place] [id number] Test Date: 2016-07-11 Pat Name: Lena Penn Department: 104 Room: 3B16 Gender: F [employer] Reader: : 1955 Requested By: David Abdul Order Number: [id number] Reading MD: Anna Reeves Measurements Intervals [place] Rate: 73 P: 24 RI: 182 QRS: 2 QRSD: 81 T: 2 QT: 379 QTc: 404 Interpretive Statements SINUS RHYTHM MODERATE VOLTAGE CRITERIA FOR LVH, CONSIDER NORMAL VARIANT Electronically Signed On 07-13-2016 15:26:08 EST by Anna Reeves
== END 2016-07-13 12:51 | disposition home or self-care (01) ==
LOC: 3BNU 10:40 → EMEROO 10:40 → 3BNU 20:56
PROVIDERS: ADMIT Internal Medicine; ATTEND Nurse Practitioner Family

== ENCOUNTER 2017-10-14 10:43 | Observation (INO) ==
[2017-10-14] MEDS ORDERED: Ondansetron 4 MG/2 ML VIAL IVP ONE (11:04)
[2017-10-14] MEDS ORDERED: 0.9 % Sodium Chloride 1,000 ML IVC ONE (11:04)
--- NOTE | 2017-10-14 11:08 | Emergency Department Note ---
Disposition Clinical Impression: Hypokalemia Nausea & vomiting Qualifiers: Vomiting type: unspecified Vomiting Intractability: intractable Qualified Code( s): R11.2 - Nausea with vomiting, unspecified Disposition: Admitted As Inpatient Condition: Fair Referrals: Terrance Mariano MD [Primary Care Provider] - Forms: ED Satisfaction Letter Time of Disposition: 13:30 Nausea/Vomiting/Diarrhea HPI - General Chief complaint: ED Nausea/Vomiting/Diarrhea Stated complaint: N/V dehydration Time Seen by Provider: 10/14/17 11:01 Source: patient Mode of arrival: ambulatory Limitations: no limitations Nursing Notes Reviewed: Yes Vital Signs Reviewed: Yes - History of Present Illness HPI Narrative: 61-year-old who comes in complaining nausea vomiting for the last week not able to keep anything down. Patient states she had surgery on her spine about a month ago at [facility] and says that seems to be going relatively well. Says that she saw her family doctor and she has been given Zofran and Phenergan without improvement. Pt Subjective Complaint: nausea, vomiting Onset (ago): week(s) (1) Severity: moderate Quality: aching Consistency: constant Improves with: nothing Worsens with: nonthing - Related Data Home Medications Medication Instructions Recorded Confirmed Aspirin 81 mg PO DAILY 07/11/16 01/09/17 Atorvastatin [Lipitor] 5 mg PO HS 07/11/16 01/09/17 Carvedilol [Coreg] 25 mg PO BID 07/11/16 01/09/17 Folic Acid 1 mg PO DAILY 07/11/16 01/09/17 LORazepam [Ativan] 1 mg PO DAILY PRN 07/11/16 01/09/17 SitaGLIPtin [Januvia] 100 mg PO DAILY 07/11/16 01/09/17 Gabapentin [Neurontin] 300 - 900 mg PO QAM AND QHS 01/09/17 01/09/17 Gabapentin [Neurontin] 300 mg PO QPM PRN 01/09/17 01/09/17 Pantoprazole Sodium [Protonix] 40 mg PO DAILY 01/09/17 01/09/17 Previous Rx's Medication Instructions Recorded Acyclovir [Zovirax] 800 mg PO 5XD #50 tablet 06/24/17 Naproxen 500 mg PO BID 10 Days #20 tablet 06/29/17 predniSONE [PredniSONE] 20 mg PO DAILY 5 Days #7 tablet 06/29/17 OxyCODONE/APAP 5/325 [Percocet 1 each PO Q6HR PRN 3 Days #12 07/18/17 5/325 MG] tablet predniSONE [PredniSONE] 40 mg PO BIDWM 4 Days #8 tablet 07/20/17 Lidocaine Patch [Lidoderm 5% patch] 1 each TP DAILY PRN #5 adh..patch 07/22/17 Ciprofloxacin [Cipro] 500 mg PO BID #14 tablet 09/17/17 Phenazopyridine HCl [Pyridium] 200 mg PO TID #6 tab 09/17/17 Allergies Allergy/AdvReac Type Severity Reaction Status Date / Time sulfamethoxazole Allergy Itching Verified 10/14/17 11:02 [From Bactrim] losartan AdvReac Itching Verified 10/14/17 11:02 tramadol AdvReac Itching Verified 10/14/17 11:02 All systems ED: reviewed and negative except as stated. Constitutional: Denies: fever, chills, weakness, weight change Eyes: Denies: eye pain, eye discharge, vision change ENT ED: Denies: ear pain, throat pain, dental pain, hearing loss, epistaxis, congestion, dysphagia Cardiovascular: Denies: chest pain, palpitations, dyspnea on exertion, edema, syncope Respiratory: Denies: cough, dyspnea, wheezes, hemoptysis, stridor Gastrointestinal: Reports: nausea, vomiting. Denies: abdominal pain, diarrhea, constipation, hematemesis, melena, hematochezia Genitourinary: Denies: dysuria, frequency, hematuria, discharge Musculoskeletal: Denies: back pain, neck pain, arthralgia, myalgia Integumentary: Denies: rash, abrasion, lesions Neurological: Denies: headache, weakness, numbness, paresthesias, confusion, abnormal gait, vertigo Psychiatric: Denies: anxiety, depression, suicidal thoughts, homicidal thoughts , auditory hallucinations, visual hallucinations Endocrine: Denies: fatigue Hematological/Lymphatic: Denies: easy bleeding, easy bruising Allergic/Immunologic: Denies: facial swelling, urticaria Past Medical History - Past Medical History Medical history: Reports: arthritis, diabetes, hypertension Surgical history: Reports: cholecystectomy, hysterectomy, knee replacement, orthopedic, other, other Psychiatric history: Reports: depression [employer]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 - Social History Smoking Status: Never smoker Smokeless Tobacco Status: No Alcohol use: Reports: none Drug use: Reports: none Physical Exam - General Limitations: no limitations General appearance: alert, in no apparent distress - Head Head exam: atraumatic, normocephalic, normal inspection - Eye Eye exam: Present: normal appearance, PERRL, EOMI - ENT ENT exam: normal exam, normal oropharynx, mucous membranes moist - Neck Neck exam: Present: normal inspection, full ROM, trachea midline - Chest Chest inspection: Present: normal inspection, symmetric chest wall rise - Respiratory Respiratory exam: Present: normal lung sounds bilaterally - Cardiovascular Cardiovascular exam: Present: regular rate, normal rhythm, normal heart sounds - Abdominal Exam Abdominal exam: Present: soft, tenderness. Absent: guarding, rebound - Extremities Exam Extremities exam: Present: normal inspection, full ROM. Absent: tenderness, pedal edema - Expanded Lower Extremity Exam Neurovascular/Tendon exam: Absent: motor deficit, sensory deficit, tendon deficit Gait: not tested/not observed - Back Exam Back exam: Present: normal inspection, full ROM. Absent: tenderness - Neurological Exam Neurological exam: Present: alert, oriented X3 - Psychiatric Psychiatric exam: Present: normal affect, normal mood - Skin Skin exam: Present: warm, dry, intact, normal color Course - Reevaluation(s) Reevaluation #1: 61-year-old with persistent nausea vomiting has been on Zofran and Phenergan without improvement. Time: 14:37 - Consultations Consultation #1: Discussed with , admit. Time: 14:37 Vital Signs O2 Sat by Pulse Oximetry 98 10/14/17 11:04 Temperature 97.2 F L 10/14/17 11:05 Pulse Rate 97 10/14/17 11:05 Respiratory Rate 20 10/14/17 11:05 Blood Pressure 160/92 10/14/17 11:05 O2 Sat by Pulse Oximetry 98 10/14/17 11:05 Oxygen Delivery Oxygen Delivery Room Air Nausea/Vomiting/Diarrhea - Lab Data Lab results reviewed: Yes I reviewed the patient's lab results. Result diagrams: 10/14/17 11:21 10/14/17 11:21 Lab Results 10/14/17 10/14/17 10/14/17 Range/Units 11:21 11:21 11:21 WBC 10.4 (4.3-11.1) K/mcL RBC 3.77 L (3.82-4.97) M/mcL Hgb 9.8 L (11.5-15.4) g/dL Hct 31.6 L (35.3-44.9) % MCV 83.8 (83.0-100.0) fL MCH 26.0 L (28.0-33.3) pg MCHC 31.0 L (31.6-35.5) g/dL RDW 14.2 (11.5-14.5) % Plt Count 408 H (140-400) K/mcL MPV 10.0 (9.4-12.4) fL Immature Gran % 1.0 (0-4) % Seg Neutrophils % 73.9 % Lymphocytes % 9.4 % Monocytes % 9.3 % Eosinophils % 5.8 % Basophils % 0.6 % Neutrophils # 7.7 (1.6-8.9) K/mcL Lymphocytes # 1.0 (0.6-4.6) K/mcL Monocytes # 1.0 (0.0-1.3) K/mcL Eosinophils # 0.6 (0.0-0.6) K/mcL Basophils # 0.1 (0.0-0.2) K/mcL Sodium 135 L (136-145) mEq/L Potassium 3.0 L (3.5-5.1) mEq/L Chloride 95 L (98-107) mEq/L Carbon Dioxide 29 (23-29) mEq/L BUN 23 H (6-20) mg/dL Creatinine 0.80 (0.60-1.20) mg/dL Est GFR ( Amer) > 60 (> 60) Est GFR (Non-Af Amer) > 60 (> 60) BUN/Creatinine Ratio 29 H (6-26) Glucose 172 H (70-105) mg/dL Calculated Osmolality 288 (280-300) Calcium 9.5 (8.6-10.3) mg/dL Total Bilirubin 0.8 (0.3-1.0) mg/dL Direct Bilirubin 0.3 H (0.0-0.2) mg/dL Indirect Bilirubin 0.5 (0.0-1.2) mg/dL AST 54 H (13-39) Units/L ALT 132 H (7-52) Units/L Alkaline Phosphatase 153 H (34-104) Units/L Serum Total Protein 7.9 (6.4-8.9) g/dL Albumin 3.7 (3.5-5.7) g/dL Globulin 4.2 H (2.4-3.5) g/dL Albumin/Globulin Ratio 0.9 L (1.1-2.2) Lipase 41 (11-82) Units/L Urine Color (Yellow) Urine Clarity (Clear) Urine pH (5.0-8.0) pH Units Ur Specific [place] (1.010-1.025) Urine Protein (Neg-Trace) mg/dL Urine Glucose (UA) (Normal) mg/dL Urine Ketones (Negative) mg/dL Urine Blood (Negative) Urine Nitrite (Negative) Urine Bilirubin (Negative) Urine Urobilinogen (Normal) mg/dL Ur Leukocyte Esterase (Negative) Urine Microscopic RBC (0-3) per hpf Urine Microscopic WBC (0-3) per hpf Ur Squamous Epith Cells (None-Few) per lpf Urine Bacteria (None-Few) per hpf Ur Culture Indicated? (NO) 10/14/17 Range/Units 11:25 WBC (4.3-11.1) K/mcL RBC (3.82-4.97) M/mcL Hgb (11.5-15.4) g/dL Hct (35.3-44.9) % MCV (83.0-100.0) fL MCH (28.0-33.3) pg MCHC (31.6-35.5) g/dL RDW (11.5-14.5) % Plt Count (140-400) K/mcL MPV (9.4-12.4) fL Immature Gran % (0-4) % Seg Neutrophils % % Lymphocytes % % Monocytes % % Eosinophils % % Basophils % % Neutrophils # (1.6-8.9) K/mcL Lymphocytes # (0.6-4.6) K/mcL Monocytes # (0.0-1.3) K/mcL Eosinophils # (0.0-0.6) K/mcL Basophils # (0.0-0.2) K/mcL Sodium (136-145) mEq/L Potassium (3.5-5.1) mEq/L Chloride (98-107) mEq/L Carbon Dioxide (23-29) mEq/L BUN (6-20) mg/dL Creatinine (0.60-1.20) mg/dL Est GFR ( Amer) (> 60) Est GFR (Non-Af Amer) (> 60) BUN/Creatinine Ratio (6-26) Glucose (70-105) mg/dL Calculated Osmolality (280-300) Calcium (8.6-10.3) mg/dL Total Bilirubin (0.3-1.0) mg/dL Direct Bilirubin (0.0-0.2) mg/dL Indirect Bilirubin (0.0-1.2) mg/dL AST (13-39) Units/L ALT (7-52) Units/L Alkaline Phosphatase (34-104) Units/L Serum Total Protein (6.4-8.9) g/dL Albumin (3.5-5.7) g/dL Globulin (2.4-3.5) g/dL Albumin/Globulin Ratio (1.1-2.2) Lipase (11-82) Units/L Urine Color Dark Yellow (Yellow) Urine Clarity Cloudy A (Clear) Urine pH 5.5 (5.0-8.0) pH Units Ur Specific [place] 1.028 H (1.010-1.025) Urine Protein 30 H (Neg-Trace) mg/dL Urine Glucose (UA) Normal (Normal) mg/dL Urine Ketones Trace H (Negative) mg/dL Urine Blood Large H (Negative) Urine Nitrite Negative (Negative) Urine Bilirubin Small H (Negative) Urine Urobilinogen Normal (Normal) mg/dL Ur Leukocyte Esterase Trace H (Negative) Urine Microscopic RBC TNTC H (0-3) per hpf Urine Microscopic WBC 5-15 H (0-3) per hpf Ur Squamous Epith Cells Many H (None-Few) per lpf Urine Bacteria Moderate H (None-Few) per hpf Ur Culture Indicated? NO. A (NO) - Radiology Data Radiology results reviewed: Yes I reviewed the patient's radiology results. Abdomen/Pelvis CT 10/14/17 11:04 IMPRESSION: 1. Nonobstructing bilateral nephrolithiasis 2. Abdominal wall hernia 3. Status post cholecystectomy and hysterectomy D/ / Meir Carlin MD / Meir Carlin MD Interpreting Provider: Meir Carlin MD
[2017-10-14 11:33] LABS: Bilirubin,Urine Small (Negative); Blood,Urine Large (Negative); Clarity,Urine Cloudy (Clear); Color,Urine Dark Yellow (Yellow); Glucose,Urine (UA) Normal (Normal); Ketones,Urine Trace mg/dL (Negative); Leukocyte Esterase,Urine Trace (Negative); Nitrite,Urine Negative (Negative); PH,Urine 5.5 pH Units (5.0-8.0); Protein,Urine 30 mg/dL (Neg-Trace); Specific Gravity,Urine 1.028 (1.010-1.025); Urobilinogen,Urine Normal (Normal)
[2017-10-14 11:36] LABS: Bacteria,Urine Moderate per hpf (None-Few); RBC,Urine TNTC per hpf (0-3); Squamous Epithelial Cell,Urine Many per lpf (None-Few)
[2017-10-14 11:49] LABS: Basophils # 0.1 K/mcL (0.0-0.2); Basophils % 0.6 %; Eosinophils # 0.6 K/mcL (0.0-0.6); Eosinophils % 5.8 %; Hematocrit 31.6 % (35.3-44.9); Hemoglobin 9.8 g/dL (11.5-15.4); Lymphocytes % 9.4 %; Mean Corpuscular Volume 83.8 fL (83.0-100.0); Monocytes % 9.3 %; Neutrophils # 7.7 K/mcL (1.6-8.9); Platelet Count 408 K/mcL (140-400); Red Blood Count 3.77 M/mcL (3.82-4.97); Red Cell Distribution Width 14.2 % (11.5-14.5); Segmented Neutrophils % 73.9 %
[2017-10-14 11:54] LABS: BUN/Creatinine Ratio 29 (6-26); Blood Urea Nitrogen 23 mg/dL (6-20); Calcium 9.5 mg/dL (8.6-10.3); Carbon Dioxide 29 mEq/L (23-29); Chloride 95 mEq/L (98-107); Glucose 172 mg/dL (70-105); Lipase 41 Units/L (11-82); Osmolality,Calculated 288 (280-300); Sodium 135 mEq/L (136-145); eGFR For African Americans > 60 (> 60); eGFR For Non-African Americans > 60 (> 60)
[2017-10-14 11:55] LABS: Albumin 3.7 g/dL (3.5-5.7); Albumin/Globulin Ratio 0.9 (1.1-2.2); Bilirubin,Total 0.8 mg/dL (0.3-1.0); Globulin 4.2 g/dL (2.4-3.5); Total Protein 7.9 g/dL (6.4-8.9)
[2017-10-14 12:00] LABS: Bilirubin,Direct 0.3 mg/dL (0.0-0.2); Bilirubin,Indirect 0.5 mg/dL (0.0-1.2)
[2017-10-14] MEDS ORDERED: cefTRIAXone 1,000 MG in Water for inj. (sterile) 20 ML 10 ML IVP ONE (13:28)
[2017-10-14] MEDS ORDERED: Naloxone 0.4 MG/ML INJ IVP PRN (16:36)
[2017-10-14] MEDS ORDERED: Gabapentin 300 MG CAPSULE PO PRN (16:39)
[2017-10-14] MEDS ORDERED: *HR* LORazepam 1 MG TABLET PO PRN (16:39)
[2017-10-14] MEDS ORDERED: *HR* Dextrose 50 % in Water (Syg) 50 ML SYRINGE IVP PRN (16:41)
[2017-10-14] MEDS ORDERED: Ondansetron 4 MG/2 ML VIAL IVP PRN (16:41)
[2017-10-14] MEDS ORDERED: Dextrose Gel 15 GM/37.5 ML TUBE PO PRN ×2 (16:41)
[2017-10-14] MEDS ORDERED: D5% in Water 1,000 ML IVC PRN (16:41)
--- NOTE | 2017-10-14 17:25 | Internal Med History&Physical ---
Date of Encounter: 10/14/17 Time of Encounter: 17:16 Internal Medicine - H&P: HPI Chief complaint: Nausea vomiting diarrhea Admitted From: Home Plans for Post Hospital Care: Home History of present illness: Ms. Penn is a 61 year old female with history of diabetes mellitus type 2, hypertension, rheumatoid arthritis who had recent back surgery one month ago and has been in rehabilitation for 1 week and got discharged almost 10 days ago presented to ER with intractable nausea, vomiting since last Saturday and is started watery diarrhea 1-2 per day for last 3 days. Vomiting frequency 3-4 times per day and vomitus clear. Decrease oral intake, generalized weakness, mild abdominal pain but denies any cramps. Also noticed chills and decreased urine output and last 3 days. Patient denies fever, chest pain, shortness of breath, headache, dizziness, urinary frequency hematuria or urgency burning micturition, tingling numbness motor weakness. Patient also denies hematemesis, melena, hematochezia, hemoptysis, cough. Patient denies any previous history of liver problem. Past Med Surg Social Fam HX - Past Medical History Medical history: arthritis, diabetes, hypertension Psychiatric history: depression - Past Surgical History Surgical History: cholecystectomy, hysterectomy, knee replacement, orthopedic, other, other - Social History Smoking Status: Never smoker Smokeless Tobacco Status: No Alcohol use: none Drug use: none Internal Medicine - H&P: Meds Aspirin 81 mg PO DAILY 07/11/16 [History] Atorvastatin [Lipitor] 5 mg PO HS 07/11/16 [History] Carvedilol [Coreg] 25 mg PO BID 07/11/16 [History] Folic Acid 1 mg PO DAILY 07/11/16 [History] LORazepam [Ativan] 1 mg PO DAILY PRN 07/11/16 [History] Gabapentin [Neurontin] 300 - 900 mg PO QAM AND QHS 01/09/17 [History] Gabapentin [Neurontin] 300 mg PO QPM PRN 01/09/17 [History] Pantoprazole Sodium [Protonix] 40 mg PO DAILY 01/09/17 [History] Acyclovir [Zovirax] 800 mg PO 5XD #50 tablet 06/24/17 [Rx] Naproxen 500 mg PO BID 10 Days #20 tablet 06/29/17 [Rx] 3 Allergy/AdvReac Type Severity Reaction Status Date / Time sulfamethoxazole Allergy Itching Verified 10/14/17 15:06 [From Bactrim] losartan AdvReac Itching Verified 10/14/17 15:06 tramadol AdvReac Itching Verified 10/14/17 15:06 All Systems PM: as documented above in the HPI. - Constitutional Vitals: Temp Pulse Resp BP Pulse Ox 97.2 F L 106 20 132/80 97 10/14/17 11:05 10/14/17 14:30 10/14/17 14:30 10/14/17 14:30 10/14/17 14:30 Exam: General appearance: No acute distress, A&O X 3. Appears tired and slightly dehydrated Head exam: Atraumatic Eye exam: EOMI, PERRLA ENT exam: Dry oral mucosa Neck nontender, supple Respiratory exam: Clear to auscultation bilaterally Cardiovascular exam: Regular rate and rhythm, no systolic murmur Abdominal exam: Soft, mild diffuse tenderness,, nondistended, positive bowel sounds Extremities exam: No calf tenderness, no pedal edema Present: Skin-no rash, warm, dry, intact Neurological exam: Alert, awake, oriented 3, CN II-XII intact, no focal deficits. No facial droop. Normal speech. Normal gait. Romberg sign negative Internal Med - H&P Results - Labs CBC & Chem 7: 10/14/17 11:21 10/14/17 11:21 - Assessment and plan (1) Acute gastroenteritis Current Visit: Yes Status: Acute Assessment and plan: Mild dehydration patient had exposure of healthcare system therefore high risk to get C. difficile infection. GI panel ordered. Meanwhile Flagyl empiric treatment is started. Symptomatic treatment IV fluid, antiemetic started. Nothing by mouth for now but will start clear liquid if patient is willing (2) Prerenal azotemia Current Visit: Yes Status: Acute Assessment and plan: Associated with moderate dehydration. Gentle hydration with a strict I&O's. Monitor BMP. (3) Hypokalemia Current Visit: Yes Status: Acute Assessment and plan: Due to above. Replacement. BMP repeat tonight at 9 PM. Monitor closely. Magnesium level also ordered. (4) Elevated LFTs Current Visit: Yes Status: Acute Assessment and plan: No history of liver disease. Most likely due to present problem. Will monitor CMP. If any concern will order hepatitis panel and ultrasound. No history of alcohol in the past. (5) Diabetes mellitus Current Visit: Yes Status: Acute Assessment and plan: Accu-Chek, SSI, A1c. Qualifiers: Diabetes mellitus type: type 2 Diabetes mellitus senior living insulin use: without termite helper use Diabetes mellitus complication status: without complication Qualified Code(s): E11.9 - Type 2 diabetes mellitus without complications (6) Anemia Current Visit: Yes Status: Acute Assessment and plan: Low white count compared to last lab. Hemoccult will be ordered. Monitor H&H. Anemia panel. Qualifiers: Anemia type: unspecified type Qualified Code(s): D64.9 - Anemia, unspecified (7) Renal calculus, bilateral Current Visit: Yes Status: Chronic Assessment and plan: Bilateral renal stone nonobstructive. Continue to monitor. Not symptomatic. (8) Hypertension Current Visit: Yes Status: Acute Assessment and plan: Home medication. Continue monitor Qualifiers: Hypertension type: essential hypertension Qualified Code(s): I10 - Essential (primary) hypertension (9) Abnormal urine finding Current Visit: Yes Status: Acute Assessment and plan: Abnormal urine analysis. Patient denies any urinary complaint except decreased urine output that could be mostly due to low oral intake. Urine culture ordered. Will wait for culture report before considering any further antibiotic. (10) DVT prophylaxis Current Visit: Yes Status: Acute Assessment and plan: SCDs. - Time Spent With Patient Total time spent is greater than 50% in coordination of care (as documented) at patient's floor/unit and/or counseling patient:
[2017-10-14] MEDS ORDERED: hydrOXYzine pamoate 25 MG CAPSULE PO PRN (17:45)
[2017-10-14 17:58] LABS: BUN/Creatinine Ratio 28 (6-26); Blood Urea Nitrogen 19 mg/dL (6-20); Calcium 8.9 mg/dL (8.6-10.3); Carbon Dioxide 24 mEq/L (23-29); Chloride 101 mEq/L (98-107); Glucose 110 mg/dL (70-105); Osmolality,Calculated 287 (280-300); Potassium 3.6 mEq/L (3.5-5.1); Sodium 137 mEq/L (136-145); eGFR For African Americans > 60 (> 60); eGFR For Non-African Americans > 60 (> 60)
[2017-10-14] MEDS: 0.9 % Sodium Chloride 1,000 ML IVC SCH (18:05)
[2017-10-14] MEDS: Insulin LISPRO 300 UNITS/3 ML VIAL SQ SCH (18:56)
[2017-10-14 20:18] LABS: Estimated Average Glucose 126 mg/dl
[2017-10-14] MEDS ORDERED: BENZOYL PEROXIDE APPL TP SCH (21:00)
[2017-10-14 21:06] LABS: C.difficile Toxin A/B by PCR Not detected (Not detect); Campylobacter by PCR Not detected (Not detect)
[2017-10-14 21:07] LABS: Enteroaggregative E.coli(EAEC) Not detected (Not detect); Enteropathogenic E.coli(EPEC) Not detected (Not detect); Enterotoxigenic E.coli (ETEC) Not detected (Not detect); Plesiomonas shigelloides PCR Not detected (Not detect); Salmonella PCR Not detected (Not detect); Shigalike tox-prod E coli STEC Not detected (Not detect); Vibrio PCR Not detected (Not detect); Vibrio cholerae PCR Not detected (Not detect); Yersinia enterocolitica PCR Not detected (Not detect)
[2017-10-14 21:09] LABS: Adenovirus F 40/41 PCR Not detected (Not detect); Astrovirus PCR Not detected (Not detect); Cryptosporidium by PCR Not detected (Not detect); Cyclospora cayetanensis PCR Not detected (Not detect); Entamoeba histolytica PCR Not detected (Not detect); Giardia lamblia PCR Not detected (Not detect); Norovirus GI/GII PCR Not detected (Not detect); Rotavirus A PCR Not detected (Not detect); Sapovirus PCR Not detected (Not detect); Shig/EnteroinvasiveE coli EIEC Not detected (Not detect)
[2017-10-14] MEDS: Latanoprost 2.5 ML BOTTLE BOTH EYES SCH (21:15)
[2017-10-14] MEDS: MetroNIDAZOLE 500 MG/100 ML 500 MG/100 ML BAG IVPB SCH (23:47)
[2017-10-15] MEDS: Insulin LISPRO 300 UNITS/3 ML VIAL SQ SCH ×4 (00:55→16:26)
[2017-10-15] MEDS: Ondansetron 4 MG/2 ML VIAL IVP PRN ×2 (04:48→14:40)
[2017-10-15] MEDS: 0.9 % Sodium Chloride 1,000 ML IVC SCH (04:48)
[2017-10-15 04:56] LABS: Basophils % 0.3 %; Eosinophils # 0.5 K/mcL (0.0-0.6); Eosinophils % 5.9 %; Hematocrit 24.3 % (35.3-44.9); Immature Granulocytes % 0.9 % (0-4); Lymphocytes # 1.5 K/mcL (0.6-4.6); Lymphocytes % 16.4 %; Mean Corpuscular HGB Conc 31.3 g/dL (31.6-35.5); Mean Corpuscular Hemoglobin 26.2 pg (28.0-33.3); Mean Corpuscular Volume 83.8 fL (83.0-100.0); Mean Platelet Volume 10.2 fL (9.4-12.4); Neutrophils # 5.8 K/mcL (1.6-8.9); Platelet Count 302 K/mcL (140-400); Red Cell Distribution Width 14.3 % (11.5-14.5); Segmented Neutrophils % 65.5 %
[2017-10-15 04:57] LABS: Hemoglobin 7.6 g/dL (11.5-15.4)
[2017-10-15 05:10] LABS: Alanine Aminotransferase 97 Units/L (7-52); Albumin 3.1 g/dL (3.5-5.7); Albumin/Globulin Ratio 0.9 (1.1-2.2); Alkaline Phosphatase 123 Units/L (34-104); Aspartate Amino Transferase 40 Units/L (13-39); BUN/Creatinine Ratio 26 (6-26); Bilirubin,Total 0.6 mg/dL (0.3-1.0); Blood Urea Nitrogen 17 mg/dL (6-20); Calcium 8.9 mg/dL (8.6-10.3); Carbon Dioxide 26 mEq/L (23-29); Chloride 104 mEq/L (98-107); Globulin 3.3 g/dL (2.4-3.5); Glucose 113 mg/dL (70-105); Osmolality,Calculated 290 (280-300); Sodium 139 mEq/L (136-145); Total Protein 6.4 g/dL (6.4-8.9); eGFR For African Americans > 60 (> 60); eGFR For Non-African Americans > 60 (> 60)
[2017-10-15] MEDS: Pantoprazole 40 MG VIAL IVP SCH (08:35)
[2017-10-15] MEDS: cefTRIAXone 1,000 MG in Water for inj. (sterile) 20 ML 10 ML IVP SCH (08:36)
[2017-10-15] MEDS: Aspirin 81 MG TAB.CHEW PO SCH (08:37)
[2017-10-15] MEDS: MetroNIDAZOLE 500 MG/100 ML 500 MG/100 ML BAG IVPB SCH (08:37)
[2017-10-15] MEDS: Folic Acid 1 MG TABLET PO SCH (08:37)
--- NOTE | 2017-10-15 10:12 | Internal Med Progress Note ---
Date of Encounter: 10/15/17 Time of Encounter: 10:09 - Assessment and plan (1) Acute gastroenteritis Current Visit: Yes Status: Acute Assessment and plan: Presented dehydrated Negative stool studies, including negative for C diff. Discontinue Flagyl. Hold IV fluids for now until diet advanced. (2) Prerenal azotemia Current Visit: Yes Status: Acute Assessment and plan: Associated with moderate dehydration. Gentle hydration with a strict I&O's. Repeat BMP later today. (3) Hypokalemia Current Visit: Yes Status: Acute Assessment and plan: Due to above. Replacement. BMP repeat tonight at 9 PM. Monitor closely. Magnesium level also ordered. (4) Elevated LFTs Current Visit: Yes Status: Acute Assessment and plan: No history of liver disease. Most likely due to present problem. If any concern will order hepatitis panel and ultrasound. No history of alcohol in the past. Improved on recent lab Recheck CMP later today. (5) Diabetes mellitus Current Visit: Yes Status: Acute Assessment and plan: Continue Accu-Chek, SSI A1C is 6.0 Qualifiers: Diabetes mellitus type: type 2 Diabetes mellitus chcf insulin use: without intermediate accountant use Diabetes mellitus complication status: without complication Qualified Code(s): E11.9 - Type 2 diabetes mellitus without complications (6) Anemia Current Visit: Yes Status: Acute Assessment and plan: Low white count compared to last lab. Hemoccult will be ordered. Hemoglobin was 9.8 on admission and today dropped to 7.6. Could be hemodilutional, total 2.4 L IV fluids. Recheck H&H 4 pm today. Qualifiers: Anemia type: unspecified type Qualified Code(s): D64.9 - Anemia, unspecified (7) Renal calculus, bilateral Current Visit: Yes Status: Chronic Assessment and plan: Bilateral renal stone nonobstructive. No symptoms (8) Hypertension Current Visit: Yes Status: Acute Assessment and plan: Home medication. Continue monitor Qualifiers: Hypertension type: essential hypertension Qualified Code(s): I10 - Essential (primary) hypertension (9) DVT prophylaxis Current Visit: Yes Status: Acute (10) Abnormal urine finding Current Visit: Yes Status: Acute Assessment and plan: Abnormal urine analysis. Patient denies any urinary complaint except decreased urine output that could be mostly due to low oral intake. Urine culture ordered. - Time Spent With Patient Total time spent is greater than 50% in coordination of care (as documented) at patient's floor/unit and/or counseling patient: - Subjective Interval history: No acute events. Patient denies fevers/chills. Still has some diarrhea/N/V. But wants to try food at this time. C diff and stool studies returned negative. - Constitutional Vitals: Temp Pulse Resp BP Pulse Ox 98.1 F 101 16 128/62 97 10/15/17 06:32 10/15/17 06:32 10/15/17 06:32 10/15/17 06:32 10/15/17 06:32 - Head Head exam: Present: atraumatic, normocephalic - Eye Eye exam: Present: PERRL, conjuntiva pink, sclera anicteric Pupils: Present: PERRL - Neck Neck exam general surgery: Present: supple, trachea midline. Absent: lymphadenopathy - Respiratory Respiratory exam: Present: CTAB. Absent: accessory muscle use, rales, rhonchi, wheezes - Cardiovascular Cardiovascular exam: Present: RRR, +S1, +S2. Absent: diastolic murmur, gallop, rubs, systolic murmur - GI/Abdominal GI/Abdominal exam: Present: normal bowel sounds, soft, no peritoneal signs. Absent: distended, tenderness - Extremities Exam Extremities exam: Present: warm, radial pulses palpable and symmetrical. Absent : calf tenderness, cyanotic, pedal edema - Neurological Exam Neurological exam: Present: CN II-XII intact, oriented X3, no focal deficits. Absent: pronater drift, facial droop, speech deficit - Skin Skin exam: Present: dry, intact Internal Medicine: Result - Labs CBC & Chem 7: 10/15/17 04:00 10/15/17 04:00 Labs: Short CBC 10/15/17 Range/Units 04:00 WBC 8.8 (4.3-11.1) K/mcL Hgb 7.6 L D (11.5-15.4) g/dL Hct 24.3 L (35.3-44.9) % Plt Count 302 (140-400) K/mcL Neutrophils # 5.8 (1.6-8.9) K/mcL BMP 10/14/17 10/15/17 17:14 04:00 Sodium 137 139 Potassium 3.6 3.0 L Chloride 101 104 Carbon Dioxide 24 26 BUN 19 17 Creatinine 0.67 0.65 Glucose 110 H 113 H Calcium 8.9 8.9 Liver Function 10/15/17 Range/Units 04:00 Total Bilirubin 0.6 (0.3-1.0) mg/dL AST 40 H (13-39) Units/L ALT 97 H (7-52) Units/L Alkaline Phosphatase 123 H (34-104) Units/L Albumin 3.1 L (3.5-5.7) g/dL Consult Discharge Plan - Plan Referrals: Terrance Mariano MD [Primary Care Provider] -
[2017-10-15 16:00] LABS: Hematocrit 25.2 % (35.3-44.9); Hemoglobin 7.8 g/dL (11.5-15.4)
[2017-10-15 16:18] LABS: Alanine Aminotransferase 84 Units/L (7-52); Albumin 3.1 g/dL (3.5-5.7); Alkaline Phosphatase 121 Units/L (34-104); Aspartate Amino Transferase 30 Units/L (13-39); BUN/Creatinine Ratio 23 (6-26); Bilirubin,Total 0.5 mg/dL (0.3-1.0); Blood Urea Nitrogen 14 mg/dL (6-20); Calcium 8.8 mg/dL (8.6-10.3); Carbon Dioxide 27 mEq/L (23-29); Chloride 103 mEq/L (98-107); Globulin 3.2 g/dL (2.4-3.5); Glucose 116 mg/dL (70-105); Osmolality,Calculated 285 (280-300); Potassium 3.4 mEq/L (3.5-5.1); Sodium 137 mEq/L (136-145); Total Protein 6.3 g/dL (6.4-8.9); eGFR For African Americans > 60 (> 60); eGFR For Non-African Americans > 60 (> 60)
[2017-10-15] MEDS ORDERED: Insulin LISPRO 300 UNITS/3 ML VIAL SQ SCH (21:00)
[2017-10-15] MEDS: Latanoprost 2.5 ML BOTTLE BOTH EYES SCH (21:06)
[2017-10-16] MEDS: Insulin LISPRO 300 UNITS/3 ML VIAL SQ SCH ×2 (08:23→12:09)
[2017-10-16] MEDS: Aspirin 81 MG TAB.CHEW PO SCH (08:39)
[2017-10-16] MEDS: Folic Acid 1 MG TABLET PO SCH (08:40)
[2017-10-16] MEDS: Pantoprazole 40 MG VIAL IVP SCH (08:41)
[2017-10-16] MEDS: cefTRIAXone 1,000 MG in Water for inj. (sterile) 20 ML 10 ML IVP SCH (08:41)
[2017-10-16 11:03] LABS: Basophils % 0.3 %; Eosinophils # 0.6 K/mcL (0.0-0.6); Eosinophils % 6.4 %; Hematocrit 26.9 % (35.3-44.9); Hemoglobin 8.5 g/dL (11.5-15.4); Immature Granulocytes % 0.6 % (0-4); Lymphocytes # 1.1 K/mcL (0.6-4.6); Lymphocytes % 11.5 %; Mean Corpuscular HGB Conc 31.6 g/dL (31.6-35.5); Mean Corpuscular Volume 85.4 fL (83.0-100.0); Mean Platelet Volume 10.1 fL (9.4-12.4); Monocytes % 10.5 %; Neutrophils # 6.7 K/mcL (1.6-8.9); Platelet Count 306 K/mcL (140-400); Red Blood Count 3.15 M/mcL (3.82-4.97); Red Cell Distribution Width 14.2 % (11.5-14.5); Segmented Neutrophils % 70.7 %
[2017-10-16 11:04] VITALS: BP 141/83
[2017-10-16 11:19] LABS: BUN/Creatinine Ratio 15 (6-26); Blood Urea Nitrogen 9 mg/dL (6-20); Calcium 8.9 mg/dL (8.6-10.3); Carbon Dioxide 27 mEq/L (23-29); Chloride 101 mEq/L (98-107); Glucose 177 mg/dL (70-105); Osmolality,Calculated 285 (280-300); Potassium 3.3 mEq/L (3.5-5.1); Sodium 136 mEq/L (136-145); eGFR For African Americans > 60 (> 60); eGFR For Non-African Americans > 60 (> 60)
--- NOTE | 2017-10-16 13:58 | Discharge Summary ---
- NOTES TO OUTPATIENT PROVIDER Notes to Outpatient Provider: - While here in hospital, states she has scabies. She had an adverse reaction to Elimite as an outpatient, so we are prescribing Eurax on discharge. Orders not resulted at time of discharge: Pending orders 10/14/17 11:14 Culture,Urine [RM] Stat 10/17/17 04:00 BMP [Basic Metabolic Panel] AM 0400 Complete Blood Count [HEME] AM 0400 Date of Encounter: 10/16/17 Time of Encounter: 13:55 - Discharge Diagnosis (1) Acute gastroenteritis Priority: Primary Status: Acute (2) Prerenal azotemia Priority: Secondary Status: Acute (3) Hypokalemia Priority: Secondary Status: Acute (4) Elevated LFTs Priority: Secondary Status: Acute (5) Diabetes mellitus Priority: Secondary Status: Acute Qualifiers: Diabetes mellitus type: type 2 Diabetes mellitus intermediate project manager insulin use: without intermediate project manager use Diabetes mellitus complication status: without complication Qualified Code(s): E11.9 - Type 2 diabetes mellitus without complications (6) Anemia Priority: Secondary Status: Acute Qualifiers: Anemia type: unspecified type Qualified Code(s): D64.9 - Anemia, unspecified (7) Renal calculus, bilateral Priority: Secondary Status: Chronic (8) Hypertension Priority: Secondary Status: Acute Qualifiers: Hypertension type: essential hypertension Qualified Code(s): I10 - Essential (primary) hypertension (9) DVT prophylaxis Priority: Secondary Status: Acute (10) Abnormal urine finding Priority: Secondary Status: Acute Hospital course: Ms. Penn is a 61 year old female with history of diabetes mellitus type 2, hypertension, rheumatoid arthritis who had recent back surgery one month ago and has been in rehabilitation for 1 week and got discharged almost 10 days ago presented to ER with intractable nausea, vomiting since last Saturday and is started watery diarrhea 1-2 per day for last 3 days. Vomiting frequency 3-4 times per day and vomitus clear. Decrease oral intake, generalized weakness, mild abdominal pain but denies any cramps. Also noticed chills and decreased urine output and last 3 days. Patient denies fever, chest pain, shortness of breath, headache, dizziness, urinary frequency hematuria or urgency burning micturition, tingling numbness motor weakness. Patient also denies hematemesis , melena, hematochezia, hemoptysis, cough. Patient denies any previous history of liver problem. Patient presented with mild dehydration and concern for C difficile. Emperically started on Flagyl. A stool panel done negative including negative C diff PCR. Antibiotics were discontinued. She had IV fluid for supportive care and diet was advanced. She had elevated LFTs which resolved as well. She was discharged home in stable condition with Zofran prn. Of note: patient told us she has scabies and has a reaction to Elimite and so we are giving her a prescription to Eurax on discharge to follow-up with primary care as outpatient. - Time Spent with Patient Total time spent providing and/or coordinating discharge services: - Discharge Medications Home Medications: Aspirin 81 mg PO DAILY 07/11/16 [History] Atorvastatin [Lipitor] 10 mg PO HS 07/11/16 [History] Carvedilol [Coreg] 25 mg PO BID 07/11/16 [History] Folic Acid 1 mg PO DAILY 07/11/16 [History] LORazepam [Ativan] 1 mg PO DAILY PRN 07/11/16 [History] Gabapentin [Neurontin] 300 mg PO TID 01/09/17 [History] Pantoprazole Sodium [Protonix] 20 mg PO DAILY 01/09/17 [History] Naproxen 500 mg PO BID 10 Days #20 tablet 06/29/17 [Rx] Benzoyl Peroxide 1 appl TP HS 10/14/17 [History] Clindamycin Phosphate [Cleocin T] 1 appl TP BID 10/14/17 [History] Hydrochlorothiazide [Microzide] 12.5 mg PO DAILY 10/14/17 [History] Latanoprost [Xalatan] 1 drop OP DAILY 10/14/17 [History] Mupirocin [Bactroban Oint] 1 appl TP DAILY 10/14/17 [History] Polyethylene Glycol 3350 17 gm PO DAILY 10/14/17 [History] Promethazine [Phenergan] 25 mg PO BID PRN 10/14/17 [History] SitaGLIPtin [Januvia] 100 mg PO DAILY 10/14/17 [History] Tizanidine HCl 4 mg PO TID 10/14/17 [History] cephALEXin [Keflex] 500 mg PO BID 10/14/17 [History] hydrOXYzine pamoate [Hydroxyzine Pamoate] 25 mg PO Q6-8H PRN 10/14/17 [History] Ondansetron HCl [Zofran] 4 mg PO Q8HR PRN #15 tab 10/16/17 [Rx] Allergies/Adverse Reactions: 3 Allergy/AdvReac Type Severity Reaction Status Date / Time sulfamethoxazole Allergy Itching Verified 10/14/17 15:06 [From Bactrim] losartan AdvReac Itching Verified 10/14/17 15:06 tramadol AdvReac Itching Verified 10/14/17 15:06 Date of admission: 10/14/17 14:54 Primary care physician: Terrance Mariano MD Discharging clinician: Rashawn Schwartz - Constitutional Vitals: Temp Pulse Resp BP Pulse Ox 97.9 F 85 20 141/83 100 10/16/17 11:02 10/16/17 11:02 10/16/17 11:02 10/16/17 11:02 10/16/17 11:02 - Head Head exam: Present: atraumatic, normocephalic - Eye Eye exam: Present: PERRL, conjuntiva pink, sclera anicteric Pupils: Present: PERRL - Neck Neck exam general surgery: Present: supple, trachea midline. Absent: lymphadenopathy - Respiratory Respiratory exam: Present: CTAB. Absent: accessory muscle use, rales, rhonchi, wheezes - Cardiovascular Cardiovascular exam: Present: RRR, +S1, +S2. Absent: diastolic murmur, gallop, rubs, systolic murmur - GI/Abdominal GI/Abdominal exam: Present: normal bowel sounds, soft, no peritoneal signs. Absent: distended, tenderness - Extremities Exam Extremities exam: Present: warm, radial pulses palpable and symmetrical. Absent : calf tenderness, cyanotic, pedal edema - Neurological Exam Neurological exam: Present: CN II-XII intact, oriented X3, no focal deficits. Absent: pronater drift, facial droop, speech deficit - Skin Skin exam: Present: dry, intact - Patient Status Disposition: Home, Self-Care Condition: Fair Functional capacity at discharge: independent ambulation Overall status at discharge: patient is progressing back to baseline - Discharge Instructions Follow Up With: TERRANCE WALLACE [Other] - Diet and Activity Activity: increase activity as tolerated Diet: advance to your usual diet
== END 2017-10-16 15:20 | disposition home or self-care (01) ==
LOC: 3ANU 10:43 → EMEROO 10:43 → SUATTDRO 14:54 → 3ANU 16:44
PROVIDERS: ADMIT Internal Medicine; ATTEND Student in an Organized Health Care Education/Training Program

== ENCOUNTER 2017-10-28 11:44 | Inpatient (IN) ==
[2017-10-28 12:28] LABS: Basophils # 0.1 K/mcL (0.0-0.2); Basophils % 0.4 %; Eosinophils # 0.3 K/mcL (0.0-0.6); Eosinophils % 2.2 %; Hematocrit 32.9 % (35.3-44.9); Hemoglobin 10.6 g/dL (11.5-15.4); Lymphocytes # 0.7 K/mcL (0.6-4.6); Lymphocytes % 6.1 %; Mean Corpuscular HGB Conc 32.2 g/dL (31.6-35.5); Mean Corpuscular Hemoglobin 26.2 pg (28.0-33.3); Mean Corpuscular Volume 81.4 fL (83.0-100.0); Mean Platelet Volume 9.7 fL (9.4-12.4); Monocytes # 0.8 K/mcL (0.0-1.3); Platelet Count 444 K/mcL (140-400); Red Blood Count 4.04 M/mcL (3.82-4.97); Red Cell Distribution Width 14.9 % (11.5-14.5); Segmented Neutrophils % 83.3 %
[2017-10-28 12:54] LABS: Alanine Aminotransferase 54 Units/L (7-52); Albumin 3.4 g/dL (3.5-5.7); Albumin/Globulin Ratio 0.8 (1.1-2.2); Alkaline Phosphatase 138 Units/L (34-104); Amylase 18 Units/L (29-103); Aspartate Amino Transferase 36 Units/L (13-39); BUN/Creatinine Ratio 16 (6-26); Bilirubin,Total 0.8 mg/dL (0.3-1.0); Blood Urea Nitrogen 17 mg/dL (6-20); Carbon Dioxide 30 mEq/L (23-29); Chloride 94 mEq/L (98-107); Globulin 4.1 g/dL (2.4-3.5); Glucose 214 mg/dL (70-105); Lipase 37 Units/L (11-82); Osmolality,Calculated 286 (280-300); Potassium 2.6 mEq/L (3.5-5.1); Sodium 134 mEq/L (136-145); Total Protein 7.5 g/dL (6.4-8.9); eGFR For African Americans > 60 (> 60); eGFR For Non-African Americans 51 (> 60)
[2017-10-28 14:55] LABS: Bilirubin,Urine Moderate (Negative); Blood,Urine Large (Negative); Clarity,Urine Cloudy (Clear); Color,Urine Dark Yellow (Yellow); Glucose,Urine (UA) Normal (Normal); Ketones,Urine Trace mg/dL (Negative); Leukocyte Esterase,Urine Small (Negative); Nitrite,Urine Negative (Negative); Protein,Urine 30 mg/dL (Neg-Trace); Specific Gravity,Urine 1.024 (1.010-1.025); Urobilinogen,Urine Normal (Normal)
[2017-10-28 15:01] LABS: RBC,Urine TNTC per hpf (0-3); Squamous Epithelial Cell,Urine Many per lpf (None-Few)
[2017-10-28 15:16] LABS: Hyaline Casts,Urine Many per lpf (None-Few)
[2017-10-28 15:17] LABS: Bacteria,Urine Many per hpf (None-Few)
[2017-10-28] MEDS ORDERED: Albuterol 2.5 MG/3 ML NEBULIZER ONE (16:45)
[2017-10-28] MEDS ORDERED: Isovue-370 500 ML INFUS..BTL IV ONE (17:00)
[2017-10-28] MEDS ORDERED: 0.9 % Sodium Chloride 1,000 ML IVC ONE (17:02)
[2017-10-28] MEDS ORDERED: Ondansetron 4 MG/2 ML VIAL IVP ONE (17:02)
[2017-10-28] MEDS ORDERED: Hyoscyamine SL 0.125 MG TAB.SUBL SL STA (17:02)
[2017-10-28] MEDS ORDERED: Potassium Chloride 40 MEQ, Lidocaine 1% 2 ML in D5% in Water 500 ML IVPB ONE (19:02)
[2017-10-28] MEDS ORDERED: Ondansetron 4 MG/2 ML VIAL IVP PRN (19:52)
[2017-10-28] MEDS ORDERED: Acetaminophen 325 MG TABLET PO PRN (19:54)
[2017-10-28] MEDS ORDERED: Naloxone 0.4 MG/ML INJ IVP PRN (19:54)
[2017-10-28] MEDS ORDERED: *HR* LORazepam 1 MG TABLET PO PRN (19:55)
[2017-10-28] MEDS ORDERED: Dextrose Gel 15 GM/37.5 ML TUBE PO PRN ×2 (19:57)
[2017-10-28] MEDS ORDERED: *HR* Dextrose 50 % in Water (Syg) 50 ML SYRINGE IVP PRN (19:57)
[2017-10-28] MEDS ORDERED: D5% in Water 1,000 ML IVC PRN (19:57)
--- NOTE | 2017-10-28 20:00 | Internal Med History&Physical ---
Date of Encounter: 10/28/17 Time of Encounter: 19:58 Internal Medicine - H&P: HPI Chief complaint: Nausea/vomiting Admitted From: Emergency Dept Plans for Post Hospital Care: Home History of present illness: Ms. Penn is a 61 year old female with PMH of DM, HLD, HTN, arthritis who presents with nausea vomiting and generalized malaise. This has been an ongoing issue for at least 3 weeks. She was admitted recently for similar complaints. Unable to keep PO. Some abdominal pain in the epigastric, RUQ, LUQ areas. No diarrhea usually but today had loose watery stools. Has lost about 35 Ibs in the last month or so. Smell of food makes her nauseous. Denies fever, chills, headache, blurry vision, chest pain, shortness of breath, urinary symptoms, or neurological symptoms. In the ED, was found to have signs of dehydration, hypokalemia, and CT abd/pelvis failed to show acute findings. Given IV fluids, anti-emeitics, potassium IV in the ED. Past Med Surg Social Fam HX - Past Medical History Medical history: arthritis, diabetes, hyperlipidemia, hypertension Psychiatric history: anxiety, depression - Past Surgical History Surgical History: cholecystectomy, hysterectomy, knee replacement, orthopedic, other, other - Social History Smoking Status: Never smoker Smokeless Tobacco Status: No Alcohol use: rarely Drug use: none - Family History Mother Living Status: Hx Family Cardiac Disorders: Yes Hx Family Respiratory Disorders: Yes (COPD) Hx Family Cancer: Yes (Breast Cancer) Hx Family GI Disorders: No Hx Family Endocrine Disorder: Yes (Diabetes) Hx Family Neuromuscular Disorders: No Hx Family Neurologic Disorders: No Hx Family HEENT Disorders: No Hx Family Autoimmune Disorders: No Internal Medicine - H&P: Meds Aspirin 81 mg PO DAILY 07/11/16 [History] Atorvastatin [Lipitor] 10 mg PO HS 07/11/16 [History] Carvedilol [Coreg] 25 mg PO BID 07/11/16 [History] Folic Acid 1 mg PO DAILY 07/11/16 [History] LORazepam [Ativan] 1 mg PO DAILY PRN 07/11/16 [History] Gabapentin [Neurontin] 300 mg PO TID 01/09/17 [History] Pantoprazole Sodium [Protonix] 20 mg PO DAILY 01/09/17 [History] Naproxen 500 mg PO BID 10 Days #20 tablet 06/29/17 [Rx] Benzoyl Peroxide 1 appl TP HS 10/14/17 [History] Clindamycin Phosphate [Cleocin T] 1 appl TP BID 10/14/17 [History] Hydrochlorothiazide [Microzide] 12.5 mg PO DAILY 10/14/17 [History] Latanoprost [Xalatan] 1 drop OP DAILY 10/14/17 [History] Mupirocin [Bactroban Oint] 1 appl TP DAILY 10/14/17 [History] Polyethylene Glycol 3350 17 gm PO DAILY 10/14/17 [History] Promethazine [Phenergan] 25 mg PO BID PRN 10/14/17 [History] SitaGLIPtin [Januvia] 100 mg PO DAILY 10/14/17 [History] Tizanidine HCl 4 mg PO TID 10/14/17 [History] hydrOXYzine pamoate [Hydroxyzine Pamoate] 25 mg PO Q6-8H PRN 10/14/17 [History] Ondansetron HCl [Zofran] 4 mg PO Q8HR PRN #15 tab 10/16/17 [Rx] 3 Allergy/AdvReac Type Severity Reaction Status Date / Time sulfamethoxazole Allergy Itching Verified 10/14/17 15:06 [From Bactrim] losartan AdvReac Itching Verified 10/14/17 15:06 tramadol AdvReac Itching Verified 10/14/17 15:06 All Systems PM: A 10-system review of systems was performed and is negative for pertinent findings except as documented above in the HPI. Review of systems: All systems reviewed are negative except for as mentioned above - Constitutional Vitals: Temp Pulse Resp BP Pulse Ox 98 F 96 16 111/83 97 10/28/17 12:00 10/28/17 17:15 10/28/17 17:15 10/28/17 17:15 10/28/17 17:15 Exam: GEN: NAD HEENT: AT, NC, No cyanosis, oral mucosa is moist, No JVD Lymphatics: No lymphadenoapthy Eyes: Extrocular muscles intact, anicteric CVS:RRR. S1, S2, No m/r/g RESP: CTAB ABD: Soft, NT, ND, +BS EXT: No edema, No rashes, 2+ DP NEURO: Nonfocal, CN II-XII intact, No focal motor or sensory deficits Psych: Cooperative, Not anxious or depressed Internal Med - H&P Results - Labs CBC & Chem 7: 10/28/17 12:18 10/28/17 12:18 Labs: Short CBC 10/28/17 Range/Units 12:18 WBC 12.0 H (4.3-11.1) K/mcL Hgb 10.6 L (11.5-15.4) g/dL Hct 32.9 L (35.3-44.9) % Plt Count 444 H (140-400) K/mcL Neutrophils # 10.0 H (1.6-8.9) K/mcL BMP 10/28/17 12:18 Sodium 134 L Potassium 2.6 L Chloride 94 L Carbon Dioxide 30 H BUN 17 Creatinine 1.09 Glucose 214 H Calcium 9.0 Liver Function 10/28/17 Range/Units 12:18 Total Bilirubin 0.8 (0.3-1.0) mg/dL AST 36 (13-39) Units/L ALT 54 H (7-52) Units/L Alkaline Phosphatase 138 H (34-104) Units/L Albumin 3.4 L (3.5-5.7) g/dL Urine 10/28/17 Range/Units 14:49 Urine Color Dark Yellow (Yellow) Urine Clarity Cloudy A (Clear) Urine pH 5.0 (5.0-8.0) pH Units Ur Specific Gravel Switch 1.024 (1.010-1.025) Urine Protein 30 H (Neg-Trace) mg/dL Urine Glucose (UA) Normal (Normal) mg/dL - Impressions ITS Impressions Abdomen/Pelvis CT 10/28/17 17:00 IMPRESSION: 1. Mild interlobular septal thickening in the lung bases. No pleural effusions. 2. 10 mm nonobstructive left renal calculus. 3. No obvious gastrointestinal abnormality. 4. Postoperative appearance of the lumbar spine. D/ / Bennie Torrez / Bennie Torrez Interpreting Provider: Bennie Torrez - Assessment and plan (1) Nausea & vomiting Current Visit: Yes Status: Acute Assessment and plan: Unclear etiology. Has had previous admission for this. ??gastritis. ??viral gastroenteritis. LFTs mildly elevated likely from dehydration. Check stool panel. Lipase normal. CT a/p with no acute findings. c/s GI for possible EGD. Will treat symptomatically. IVF. anti-emetics. Clear liquid diet Qualifiers: Vomiting type: unspecified Vomiting Intractability: unspecified Qualified Code(s): R11.2 - Nausea with vomiting, unspecified (2) OMI (acute kidney injury) Current Visit: Yes Status: Acute Assessment and plan: Likely pre-renal from volume loss. Will hydrate. labs in am. avoid nephrotoxins (3) Hypokalemia Current Visit: No Status: Acute Assessment and plan: Given IV K in ED. Will see if she can tolerate PO. likely GI losses. Labs in am. (4) Anemia Current Visit: No Status: Acute Assessment and plan: Seems to be chronic. No signs of blood loss. Check FOBT. Iron studies Qualifiers: Anemia type: unspecified type Qualified Code(s): D64.9 - Anemia, unspecified (5) Diabetes mellitus Current Visit: No Status: Chronic Assessment and plan: Will place on sliding scale insulin. Accuchecks.A1c 6.0 on 10/14/17 Qualifiers: Diabetes mellitus type: type 2 Diabetes mellitus usp insulin use: without usp use Diabetes mellitus complication status: without complication Qualified Code(s): E11.9 - Type 2 diabetes mellitus without complications (6) Hypertension Current Visit: No Status: Chronic Assessment and plan: Resume home antihypertensives Qualifiers: Hypertension type: essential hypertension Qualified Code(s): I10 - Essential (primary) hypertension (7) DVT prophylaxis Current Visit: No Status: Acute Assessment and plan: heparin SQ - Time Spent With Patient Total time spent is greater than 50% in coordination of care (as documented) at patient's floor/unit and/or counseling patient:
--- NOTE | 2017-10-28 20:15 | Emergency Department Note ---
Disposition Clinical Impression: Hypokalemia, Hypochloremia Nausea and vomiting Qualifiers: Vomiting type: unspecified Vomiting Intractability: unspecified Qualified Code( s): R11.2 - Nausea with vomiting, unspecified Disposition: Admitted As Inpatient Condition: Good Referrals: Terrance Mariano MD [Primary Care Provider] - Time of Disposition: 20:29 Nausea/Vomiting/Diarrhea HPI - General Chief complaint: ED Nausea/Vomiting/Diarrhea Stated complaint: Vomiting/Dehydration 3wks Time Seen by Provider: 10/28/17 14:26 Source: patient Mode of arrival: ambulatory Limitations: no limitations Nursing Notes Reviewed: Yes Vital Signs Reviewed: Yes - History of Present Illness HPI Narrative: Patient presents emergency room for evaluation of nausea vomiting and generalized malaise. Patient had these symptoms for several weeks. She did have a back surgery completed and is scheduled to follow-up at [facility] for this issue the next several days. She denies any infection, fevers, chills, chest pain shortness of breath headache or vision change. Denies any diarrhea but has had persistent nausea and vomiting that is worse with specific foods. Pt Subjective Complaint: nausea, vomiting Onset (ago): week(s) Description of emesis: food contents Associated Abdominal Pain: Yes If pain, Location of pain: diffuse Radiation: diffuse Severity: moderate Quality: cramping Consistency: constant Improves with: nothing Worsens with: eating Context: recent surgery/procedure Associated symptoms: Reports: denies other symptoms - Related Data Home Medications Medication Instructions Recorded Confirmed Aspirin 81 mg PO DAILY 07/11/16 10/28/17 Atorvastatin [Lipitor] 10 mg PO HS 07/11/16 10/28/17 Carvedilol [Coreg] 25 mg PO BID 07/11/16 10/28/17 Folic Acid 1 mg PO DAILY 07/11/16 10/28/17 LORazepam [Ativan] 1 mg PO DAILY PRN 07/11/16 10/28/17 Gabapentin [Neurontin] 300 mg PO TID 01/09/17 10/28/17 Pantoprazole Sodium [Protonix] 20 mg PO DAILY 01/09/17 10/28/17 Benzoyl Peroxide 1 appl TP HS 10/14/17 10/28/17 Clindamycin Phosphate [Cleocin T] 1 appl TP BID 10/14/17 10/28/17 Hydrochlorothiazide [Microzide] 12.5 mg PO DAILY 10/14/17 10/28/17 Latanoprost [Xalatan] 1 drop OP DAILY 10/14/17 10/28/17 Mupirocin [Bactroban Oint] 1 appl TP DAILY 10/14/17 10/28/17 Polyethylene Glycol 3350 17 gm PO DAILY 10/14/17 10/28/17 Promethazine [Phenergan] 25 mg PO BID PRN 10/14/17 10/28/17 SitaGLIPtin [Januvia] 100 mg PO DAILY 10/14/17 10/28/17 Tizanidine HCl 4 mg PO TID 10/14/17 10/28/17 hydrOXYzine pamoate [Hydroxyzine 25 mg PO Q6-8H PRN 10/14/17 10/28/17 Pamoate] Previous Rx's Medication Instructions Recorded Naproxen 500 mg PO BID 10 Days #20 tablet 06/29/17 Ondansetron HCl [Zofran] 4 mg PO Q8HR PRN #15 tab 10/16/17 Allergies Allergy/AdvReac Type Severity Reaction Status Date / Time sulfamethoxazole Allergy Itching Verified 10/14/17 15:06 [From Bactrim] losartan AdvReac Itching Verified 10/14/17 15:06 tramadol AdvReac Itching Verified 10/14/17 15:06 All systems ED: reviewed and negative except as stated. Review of Systems: As Per HPI Constitutional: Reports: weakness. Denies: fever, chills Eyes: Denies: eye pain Cardiovascular: Denies: chest pain, palpitations, dyspnea on exertion, orthopnea Respiratory: Denies: dyspnea, wheezes Gastrointestinal: Reports: abdominal pain, nausea, vomiting. Denies: diarrhea, constipation, hematemesis, hematochezia Genitourinary: Denies: dysuria, frequency Musculoskeletal: Denies: back pain, neck pain Neurological: Denies: headache Endocrine: Reports: fatigue Past Medical History - Past Medical History Attestation: Yes The following information was validated with the patient. Source: patient Medical history: Reports: arthritis, diabetes, hyperlipidemia, hypertension Surgical history: Reports: cholecystectomy, hysterectomy, knee replacement, orthopedic, other, other Psychiatric history: Reports: anxiety, depression PUMP HOUSE OPERATOR history: Reports: no PUMP HOUSE OPERATOR history - Social History Smoking Status: Never smoker Smokeless Tobacco Status: No Alcohol use: Reports: rarely Drug use: Reports: none Physical Exam - General Limitations: no limitations General appearance: alert - Head Head exam: atraumatic, normocephalic, normal inspection - ENT ENT exam: normal exam, normal oropharynx, mucous membranes moist - Neck Neck exam: Present: normal inspection, full ROM, trachea midline - Chest Chest inspection: Present: normal inspection, symmetric chest wall rise - Respiratory Respiratory exam: Present: normal lung sounds bilaterally - Cardiovascular Cardiovascular exam: Present: regular rate, normal rhythm, normal heart sounds - Abdominal Exam Abdominal exam: Present: soft, Non-Tender, normal bowel sounds. Absent: tenderness, distention, guarding, rebound, rigidity, Owusu's sign, Rovsing's sign, tenderness at McBurney's Point - Extremities Exam Extremities exam: Present: normal inspection, full ROM, normal capillary refill. Absent: tenderness, pedal edema - Back Exam Back exam: Present: normal inspection, full ROM, other. Absent: tenderness, CVA tenderness (R), CVA tenderness (L) - Neurological Exam Neurological exam: Present: alert, oriented X3, CN II-XII intact, normal gait - Skin Skin exam: Present: warm, dry, intact, normal color Course Course Narrative: Patient seen and examined the time of arrival. See history of present illness. 61-year-old female presents emergency room with several weeks' worth of nausea and intractable vomiting. Today she had 3 episodes of vomiting just after waking up. Since then she has been unable to eat or drink anything. Patient has had this going on for the last several weeks. She denies any trauma or injury. Denies any fevers or chills chest pain shortness of breath headache or vision change. She has had persistent nausea and vomiting but no diarrhea. She has no vision changes or other symptoms at this time. Patient does not take any medications. She is a poorly controlled diabetic. She did have a surgery performed on her back several weeks ago the surgical site appears to be stable at this time. There is no significant deterioration pus or inflammation noted at this point. Patient has followed up with an operative physician the past. On the inferior aspect of the thoracic spine to the lumbar spine there does appear to be some midline scarring versus slight deterioration this scan but it does not appear to be any purulence redness or pulsatile fluid accumulation this point. Patient has no numbness or tingling in the extremities. Patient's main complaint is abdominal discomfort and nausea and vomiting that will not go away. Screening labs were ordered prior to my evaluation the bedside patient is hypokalemic and hypochloremic along with mildly hyponatremic. This is consistent with persistent emesis at this point. Patient was provided with fluids and nausea medication here. She will also be given a potassium rider. CT imaging of the abdomen was ordered as well as urinalysis and screening evaluation. Patient will most require admission secondary to intractable symptoms that caused her to have O light abnormalities at this point. Electrolyte repletion will be started. Patient is otherwise currently stable with normal vital signs. Her lungs are clear heart is regular abdomen is soft there is no specific tenderness she does describe some uncomfortableness. She has normal bowel sounds with no guarding or rigidity. She has no signs of pitting edema and her pulses are intact and symmetrical bilaterally. Patient will be observed here in the emergency room and disposition is determined. - Reevaluation(s) Reevaluation #1: CT imaging of the abdomen is unremarkable this time. No acute signs of intra- abdominal pathology. There is this kidney stone. Urine is grossly contaminated with blood. No acute signs of infectious etiology at this point. Patient does have a slightly elevated white blood cell count neutrophilia. Unknown etiology to this presentation this time. There does not appear to be any fluid accumulation or concern for abscess or infection the surgical site based on CT scan at this point. Patient will not be started on any antibiotics. Fluids and nausea medications to be continued. The hospitalist was contacted for admission and symptomatically control with electrode repletion and reevaluation. Patient is comfortable being admitted in the hospitalist had no other concerns or recommendations. Patient will be admitted at this time for definitive management. Patient will be observed in the emergency room until admission process is completed Time: 20:26 Reevaluation #2: Magnesium labs will be added on. This information will be reviewed by the hospitalist. It was noted after my evaluation the charting. Urine does not show any acute infectious etiology. Patient was not started on antibiotics at this time. Time: 20:28 Vital Signs Temperature 98 F 10/28/17 12:00 Pulse Rate 93 10/28/17 12:00 Respiratory Rate 18 10/28/17 12:00 Blood Pressure 101/77 05/21/18 12:00 O2 Sat by Pulse Oximetry 97 10/28/17 12:00 Temperature 98 F 10/28/17 12:00 Pulse Rate 96 10/28/17 17:15 Respiratory Rate 16 10/28/17 17:15 Blood Pressure 111/83 10/28/17 17:15 O2 Sat by Pulse Oximetry 97 10/28/17 17:15 Oxygen Delivery Oxygen Delivery Room Air Nausea/Vomiting/Diarrhea - MDM Narrative Medical decision making narrative: Nausea, vomiting, hypokalemia, hypochloremia, hyponatremia, hematuria - Medical Records Medical records reviewed: Yes I reviewed the patient's medical records. - Lab Data Lab results reviewed: Yes I reviewed the patient's lab results. Result diagrams: 10/28/17 12:18 10/28/17 12:18 Lab Results 10/28/17 10/28/17 10/28/17 Range/Units 12:18 12:18 14:49 WBC 12.0 H (4.3-11.1) K/mcL RBC 4.04 (3.82-4.97) M/mcL Hgb 10.6 L (11.5-15.4) g/dL Hct 32.9 L (35.3-44.9) % MCV 81.4 L (83.0-100.0) fL MCH 26.2 L (28.0-33.3) pg MCHC 32.2 (31.6-35.5) g/dL RDW 14.9 H (11.5-14.5) % Plt Count 444 H (140-400) K/mcL MPV 9.7 (9.4-12.4) fL Immature Gran % 1.0 (0-4) % Seg Neutrophils % 83.3 % Lymphocytes % 6.1 % Monocytes % 7.0 % Eosinophils % 2.2 % Basophils % 0.4 % Neutrophils # 10.0 H (1.6-8.9) K/mcL Lymphocytes # 0.7 (0.6-4.6) K/mcL Monocytes # 0.8 (0.0-1.3) K/mcL Eosinophils # 0.3 (0.0-0.6) K/mcL Basophils # 0.1 (0.0-0.2) K/mcL Sodium 134 L (136-145) mEq/L Potassium 2.6 L (3.5-5.1) mEq/L Chloride 94 L (98-107) mEq/L Carbon Dioxide 30 H (23-29) mEq/L BUN 17 (6-20) mg/dL Creatinine 1.09 (0.60-1.20) mg/dL Est GFR ( Amer) > 60 (> 60) Est GFR (Non-Af Amer) 51 L (> 60) BUN/Creatinine Ratio 16 (6-26) Glucose 214 H (70-105) mg/dL Calculated Osmolality 286 (280-300) Calcium 9.0 (8.6-10.3) mg/dL Total Bilirubin 0.8 (0.3-1.0) mg/dL AST 36 (13-39) Units/L ALT 54 H (7-52) Units/L Alkaline Phosphatase 138 H (34-104) Units/L Serum Total Protein 7.5 (6.4-8.9) g/dL Albumin 3.4 L (3.5-5.7) g/dL Globulin 4.1 H (2.4-3.5) g/dL Albumin/Globulin Ratio 0.8 L (1.1-2.2) Amylase 18 L (29-103) Units/L Lipase 37 (11-82) Units/L Urine Color Dark Yellow (Yellow) Urine Clarity Cloudy A (Clear) Urine pH 5.0 (5.0-8.0) pH Units Ur Specific Fred 1.024 (1.010-1.025) Urine Protein 30 H (Neg-Trace) mg/dL Urine Glucose (UA) Normal (Normal) mg/dL Urine Ketones Trace H (Negative) mg/dL Urine Blood Large H (Negative) Urine Nitrite Negative (Negative) Urine Bilirubin Moderate H (Negative) Urine Urobilinogen Normal (Normal) mg/dL Ur Leukocyte Esterase Small H (Negative) Urine Microscopic RBC TNTC H (0-3) per hpf Urine Microscopic WBC 5-15 H (0-3) per hpf Ur Squamous Epith Cells Many H (None-Few) per lpf Urine Bacteria Many H (None-Few) per hpf Hyaline Casts Many H (None-Few) per lpf Ur Culture Indicated? NO. A (NO) - Radiology Data Radiology results reviewed: Yes I reviewed the patient's radiology results. CT imaging of the abdomen is unremarkable for acute pathology. There is a known renal stone in the left kidney. No other acute issues noted this time chest x-ray stable
[2017-10-28] MEDS ORDERED: *HR* Promethazine 25 MG/ML VIAL IVP PRN (21:24)
[2017-10-28] MEDS: 0.9 % Sodium Chloride 1,000 ML IVC SCH (23:04)
[2017-10-28] MEDS: *HR* Heparin 5,000 UNIT/ML VIAL SQ SCH (23:04)
[2017-10-28] MEDS: tiZANidine 4 MG TABLET PO SCH (23:05)
[2017-10-28] MEDS: CLINDAMYCIN PHOSPHATE APPL TP SCH (23:05)
[2017-10-28] MEDS: Gabapentin 300 MG CAPSULE PO SCH (23:05)
[2017-10-28] MEDS: Insulin LISPRO 300 UNITS/3 ML VIAL SQ SCH (23:09)
[2017-10-29] MEDS: *HR* Heparin 5,000 UNIT/ML VIAL SQ SCH ×3 (05:17→23:55)
[2017-10-29] MEDS: 0.9 % Sodium Chloride 1,000 ML IVC SCH ×2 (07:28→15:51)
--- NOTE | 2017-10-29 07:47 | Internal Med Progress Note ---
<Brendon Johnson - Last Filed: 10/29/17 11:07> Date of Encounter: 10/29/17 Time of Encounter: 07:44 - Assessment and plan (1) Nausea & vomiting Current Visit: Yes Status: Acute Assessment and plan: N/v of unclear etiology Symptoms have been persistent for weeks, previously admitted for possible gastritis Associated with loss of electrolytes Continue anti-emetics, IVF, electrolyte replacement Gastroparesis remains on differential, start reglan Alternatively, consider diverticulitis as differential option Fits clinically, hard to tell on CT due to lack of PO contrast Consider cipro/flagyl if patient develops signs of infection GI consult today Nutrition consult Qualifiers: Vomiting type: unspecified Vomiting Intractability: unspecified Qualified Code(s): R11.2 - Nausea with vomiting, unspecified (2) Hypokalemia Current Visit: Yes Status: Acute Assessment and plan: K+ on admission 2.6 Repleted in ED with 80mEq Continue to replace prn Repeat BMP + Mag this morning (3) Diabetes mellitus Current Visit: Yes Status: Chronic Assessment and plan: Will place on sliding scale insulin. Accuchecks. A1c 6.0 on 10/14/17 Qualifiers: Diabetes mellitus type: type 2 Diabetes mellitus fci insulin use: without superintendent terminal use Diabetes mellitus complication status: without complication Qualified Code(s): E11.9 - Type 2 diabetes mellitus without complications (4) Hypertension Current Visit: No Status: Chronic Assessment and plan: Resume home antihypertensives Qualifiers: Hypertension type: essential hypertension Qualified Code(s): I10 - Essential (primary) hypertension (5) Anemia Current Visit: Yes Status: Chronic Assessment and plan: Seems to be chronic. No obvious signs of blood loss. Check FOBT, Iron studies, folate and B12 Qualifiers: Anemia type: unspecified type Qualified Code(s): D64.9 - Anemia, unspecified (6) DVT prophylaxis Current Visit: No Status: Acute Assessment and plan: heparin SQ (7) OMI (acute kidney injury) Current Visit: Yes Status: Acute Assessment and plan: Likely pre-renal from volume loss. Will hydrate. labs in am. avoid nephrotoxins - Time Spent With Patient Total time spent is greater than 50% in coordination of care (as documented) at patient's floor/unit and/or counseling patient: - Subjective Interval history: Patient examined at bedside. She says that she has been having nausea still but she feels little bit better now she is not eating. She is very concerned becauseable to tell her what going on. She is not having any substantial abdominal pain today - Constitutional Vitals: Temp Pulse Resp BP Pulse Ox 97.8 F 86 16 124/74 96 10/29/17 06:51 10/29/17 06:51 10/29/17 06:51 10/29/17 06:51 10/29/17 06:51 Exam: Gen: Vitals noted. No acute distress. HEENT: oropharynx clear, Normocephalic, atraumatic Neck: Supple. No adenopathy. Cardiac: RRR, no murmur, +S1/S2 Pulmonary: CTA bilaterally, no wheezes, rales or rhonchi, equal chest expansion Abdomen: soft, mild tenderness to palpation in the left upper and lower quadrant , no guarding Back: Nontender throughout. MSK: ROM intact, no joint swelling noted Extremities: no BLE edema, nontender calf, no cyanosis or clubbing Neuro: moves all extremities, no focal deficits Psych: Appropriate mood and behavior Internal Medicine: Result - Labs CBC & Chem 7: 10/29/17 07:24 10/29/17 07:24 Consult Discharge Plan - Plan Referrals: Terrance Mariano MD [Primary Care Provider] - <Sunday Pope - Last Filed: 10/29/17 13:39> Date of Encounter: 10/29/17 - Assessment and plan (1) Diabetes mellitus Current Visit: Yes Status: Chronic Qualifiers: Diabetes mellitus type: type 2 Diabetes mellitus superintendent terminal insulin use: without superintendent terminal use Diabetes mellitus complication status: without complication Qualified Code(s): E11.9 - Type 2 diabetes mellitus without complications (2) Hypertension Current Visit: No Status: Chronic Qualifiers: Hypertension type: essential hypertension Qualified Code(s): I10 - Essential (primary) hypertension (3) DVT prophylaxis Current Visit: No Status: Acute (4) Nausea & vomiting Current Visit: Yes Status: Acute Qualifiers: Vomiting type: unspecified Vomiting Intractability: unspecified Qualified Code(s): R11.2 - Nausea with vomiting, unspecified (5) Hypokalemia Current Visit: Yes Status: Acute (6) Anemia Current Visit: Yes Status: Chronic Qualifiers: Anemia type: unspecified type Qualified Code(s): D64.9 - Anemia, unspecified (7) OMI (acute kidney injury) Current Visit: Yes Status: Acute - Time Spent With Patient Total time spent is greater than 50% in coordination of care (as documented) at patient's floor/unit and/or counseling patient: - Constitutional Vitals: Temp Pulse Resp BP Pulse Ox 97.9 F 79 16 92/57 95 10/29/17 10:59 10/29/17 10:59 10/29/17 10:59 10/29/17 10:59 10/29/17 10:59 Internal Medicine: Result - Labs CBC & Chem 7: 10/29/17 07:24 10/29/17 07:24 Labs: Short CBC 10/29/17 Range/Units 07:24 WBC 10.0 (4.3-11.1) K/mcL Hgb 9.1 L D (11.5-15.4) g/dL Hct 29.4 L (35.3-44.9) % Plt Count 394 (140-400) K/mcL Neutrophils # 6.1 (1.6-8.9) K/mcL BMP 10/29/17 07:24 Sodium 136 Potassium 2.7 L Chloride 99 Carbon Dioxide 25 BUN 16 Creatinine 1.04 Glucose 112 H Calcium 8.5 L - Attending Attestation Possible acute gastritis, consider possible gastroparesis try reglan abdominal tenderness, will start Cipro and flagyl IV is diverticulitis is suspected GI consulted CT of abdomen: 1. Mild interlobular septal thickening in the lung bases. No pleural effusions. 2. 10 mm nonobstructive left renal calculus. 3. No obvious gastrointestinal abnormality. 4. Postoperative appearance of the lumbar spine. I examined this patient and my medical decision-making was reviewed with the Resident Physician. I agree with the documented findings, disposition and treatment plan as described except to the extent set forth below.
[2017-10-29 07:51] LABS: Basophils % 0.4 %; Eosinophils # 0.5 K/mcL (0.0-0.6); Eosinophils % 4.5 %; Hematocrit 29.4 % (35.3-44.9); Hemoglobin 9.1 g/dL (11.5-15.4); Immature Granulocytes % 0.8 % (0-4); Lymphocytes # 2.4 K/mcL (0.6-4.6); Lymphocytes % 24.3 %; Mean Corpuscular Hemoglobin 25.5 pg (28.0-33.3); Mean Corpuscular Volume 82.4 fL (83.0-100.0); Mean Platelet Volume 9.9 fL (9.4-12.4); Monocytes # 0.9 K/mcL (0.0-1.3); Monocytes % 8.9 %; Neutrophils # 6.1 K/mcL (1.6-8.9); Platelet Count 394 K/mcL (140-400); Red Blood Count 3.57 M/mcL (3.82-4.97); Red Cell Distribution Width 15.1 % (11.5-14.5); Segmented Neutrophils % 61.1 %
[2017-10-29 08:08] LABS: % Iron Saturation 11 % (15-50); Ferritin 294 ng/ml (10-120); Iron 28 mcg/dL (50-170); Transferrin 178 mg/dL (203-362)
[2017-10-29 08:10] LABS: BUN/Creatinine Ratio 15 (6-26); Blood Urea Nitrogen 16 mg/dL (6-20); Calcium 8.5 mg/dL (8.6-10.3); Carbon Dioxide 25 mEq/L (23-29); Chloride 99 mEq/L (98-107); Glucose 112 mg/dL (70-105); Magnesium 1.5 mg/dL (1.6-2.6); Osmolality,Calculated 284 (280-300); Potassium 2.7 mEq/L (3.5-5.1); Sodium 136 mEq/L (136-145); eGFR For African Americans > 60 (> 60); eGFR For Non-African Americans 54 (> 60)
[2017-10-29] MEDS ORDERED: Pantoprazole 40 MG VIAL IVP SCH (09:00)
[2017-10-29 09:14] LABS: Folate 17.3 ng/mL (3.0-16.0)
[2017-10-29] MEDS: Insulin LISPRO 300 UNITS/3 ML VIAL SQ SCH ×4 (10:11→23:56)
[2017-10-29] MEDS: Folic Acid 1 MG TABLET PO SCH (10:19)
[2017-10-29] MEDS: Aspirin 81 MG TAB.CHEW PO SCH (10:19)
[2017-10-29] MEDS: Gabapentin 300 MG CAPSULE PO SCH ×3 (10:19→23:58)
[2017-10-29] MEDS: tiZANidine 4 MG TABLET PO SCH ×3 (10:19→23:56)
[2017-10-29] MEDS: CLINDAMYCIN PHOSPHATE APPL TP SCH (10:20)
--- NOTE | 2017-10-29 10:47 | Gastroenterology Consult Note ---
<Bernie Earl - Last Filed: 10/29/17 10:41> Date of Encounter: 10/29/17 Time of Encounter: 09:10 - Assessment and plan (1) Nausea & vomiting Current Visit: Yes Status: Acute Assessment and plan: Ongoing for the past 3 weeks. She denies alcohol or drug use. She denies viral prodrome. She needs EGD to rule out esophagitis, gastritis, PUD, H pylori infection, will plan for tomorrow. Continue IVF, PPI and antiemetics. Qualifiers: Vomiting type: unspecified Vomiting Intractability: unspecified Qualified Code(s): R11.2 - Nausea with vomiting, unspecified (2) Anemia Current Visit: Yes Status: Chronic Assessment and plan: Pt denies any hematemesis, melena, or hematochezia. She needs EGD and colonoscopy tomorrow to r/o avm, pud, other causes of anemia. Qualifiers: Anemia type: unspecified type Qualified Code(s): D64.9 - Anemia, unspecified (3) Unintentional weight loss of 10% body weight within 6 months Current Visit: Yes Status: Acute Assessment and plan: Unexplained weight loss of 35 pounds in the past month. CT abdomen was negative , will proceed with EGD and colonoscopy tomorrow to rule out malignancy as cause for anemia and weight loss. - Time Spent With Patient Total time spent is greater than 50% in coordination of care (as documented) at patient's floor/unit and/or counseling patient: GI History of Present Illness - Data of Consult Patient: new to practice Consult date: 10/29/17 Requesting Physician: Coby Randall - Consult Narrative Reason for consult: nausea/vomiting diarrhea History of present illness: Ms. Penn is a 61 year old female with PMH of DM, HLD, HTN, arthritis, and back surgery with recent in patient rehab. She presents with nausea vomiting and generalized malaise. This has been an ongoing issue for at least 3 weeks. She denies any viral prodrome. She denies fever but has had chills. She was admitted recently for similar complaints. She admits she is unable to tolerate PO liquids or foods, she states she has been very nauseas related to any smells. She also admits to abdominal pain in the epigastric, RUQ, LUQ areas. She had diarrhea last week and one episode yesterday. She denies bloody, tarry stools, or mucus stools. She has lost approximately 35 Ibs in the last month. In the ED, was found to have signs of dehydration, hypokalemia, and CT abd/ pelvis failed to show acute findings, showed Mild interlobular septal thickening in the lung bases. No pleural effusions. 10 mm nonobstructive left renal calculus. No obvious gastrointestinal abnormality. Postoperative appearance of the lumbar spine. Urine in ER was dirty but appears contaminated, she denies any urinary symptoms. She was also found to be anemic with a Hgb 9.1 and iron was low. colonoscopy: > 10 years ago EGD: denies NSAIDS: asa/naproxen Past Med Surg Social Fam HX - Past Medical History Medical history: arthritis, diabetes, hyperlipidemia, hypertension, kidney stones Psychiatric history: anxiety, depression - Past Surgical History Surgical History: cholecystectomy, herniorrhaphy, hysterectomy, knee replacement , orthopedic, other, other - Social History Smoking Status: Never smoker Smokeless Tobacco Status: No Alcohol use: rarely Drug use: none - Family History Mother Living Status: Hx Family Cardiac Disorders: Yes Hx Family Respiratory Disorders: Yes (COPD) Hx Family Cancer: Yes (Breast Cancer) Hx Family GI Disorders: No Hx Family Endocrine Disorder: Yes (Diabetes) Hx Family Neuromuscular Disorders: No Hx Family Neurologic Disorders: No Hx Family HEENT Disorders: No Hx Family Autoimmune Disorders: No Review of Systems: GI: as per [place] [facility]: denies fever, has some chills EYES: denies yellow discoloration ENT: she does admit to some dysphagia a couple weeks ago CARDIO: denies chest pain, palpitations RESP: No Shortness of breath with exertion : denies change in color of urine NEURO: weakness HEME: Denies any bruising MS: chronic marguerite and joint pain. DERM: reports recent scabies infection, treated PSYCH: Denies history of anxiety or depression - Constitutional Vitals: Temp Pulse Resp BP Pulse Ox 97.8 F 86 16 124/74 96 10/29/17 06:51 10/29/17 06:51 10/29/17 06:51 10/29/17 06:51 10/29/17 06:51 Exam: CONSTITUTIONAL:~alert, no acute distress.~HEAD:~normocephalic.~EYES:~no jaundice.~NECK:~no obvious swelling.~HEART:~regular rate and rhythm, no murmurs. ~LUNGS:~bilateral good air entry.~ABDOMEN:~non distended, soft, diffusely tender , no masses palpable, no organomegaly.~RECTAL EXAM:~Deferred.~EXTREMITIES:~no clubbing, cyanosis or edema.~SKIN:~pallor noted, scabbed areas noted to her abdomen, no stigmata of chronic liver disease.~NEUROLOGIC:~no obvious focal defect.~~~~ Results - Labs CBC & Chem 7: 10/29/17 07:24 10/29/17 07:24 Labs: Last Result Calcium 8.5 mg/dL (8.6-10.3) L 10/29/17 07:24 Iron 28 mcg/dL (50-170) L 10/29/17 07:24 % Saturation 11 % (15-50) L 10/29/17 07:24 Transferrin 178 mg/dL (203-362) L 10/29/17 07:24 Ferritin 294 ng/ml (10-120) H 10/29/17 07:24 Vitamin B12 397 pg/mL (250-1100) 10/29/17 07:24 Folate 17.3 ng/mL (3.0-16.0) H 10/29/17 07:24 Entire Visit Hgb 9.1 g/dL (11.5-15.4) L D 10/29/17 07:24 Hct 29.4 % (35.3-44.9) L 10/29/17 07:24 Ferritin 294 ng/ml (10-120) H 10/29/17 07:24 Total Bilirubin 0.8 mg/dL (0.3-1.0) 10/28/17 12:18 AST 36 Units/L (13-39) 10/28/17 12:18 ALT 54 Units/L (7-52) H 10/28/17 12:18 Amylase 18 Units/L (29-103) L 10/28/17 12:18 Lipase 37 Units/L (11-82) 10/28/17 12:18 Folate 17.3 ng/mL (3.0-16.0) H 10/29/17 07:24 Consult Discharge Plan - Plan Referrals: Terrance Mariano MD [Primary Care Provider] - <John Cantu - Last Filed: 10/29/17 17:53> Date of Encounter: 10/29/17 Time of Encounter: 16:00 - Time Spent With Patient Total time spent is greater than 50% in coordination of care (as documented) at patient's floor/unit and/or counseling patient: GI History of Present Illness - Data of Consult Requesting Physician: Coby Randall - Consult Narrative History of present illness: Ms. Penn is a 61 year old female - Constitutional Vitals: Temp Pulse Resp BP Pulse Ox 97.5 F L 82 16 103/65 92 10/29/17 15:10 10/29/17 15:10 10/29/17 15:10 10/29/17 15:10 10/29/17 15:10 Results - Labs CBC & Chem 7: 10/29/17 07:24 10/29/17 07:24 Labs: Last Result Calcium 8.5 mg/dL (8.6-10.3) L 10/29/17 07:24 Iron 28 mcg/dL (50-170) L 10/29/17 07:24 % Saturation 11 % (15-50) L 10/29/17 07:24 Transferrin 178 mg/dL (203-362) L 10/29/17 07:24 Ferritin 294 ng/ml (10-120) H 10/29/17 07:24 Vitamin B12 397 pg/mL (250-1100) 10/29/17 07:24 Folate 17.3 ng/mL (3.0-16.0) H 10/29/17 07:24 Stool Occult Blood Negative (Negative) 10/29/17 09:50 Entire Visit Hgb 9.1 g/dL (11.5-15.4) L D 10/29/17 07:24 Hct 29.4 % (35.3-44.9) L 10/29/17 07:24 Ferritin 294 ng/ml (10-120) H 10/29/17 07:24 Total Bilirubin 0.8 mg/dL (0.3-1.0) 10/28/17 12:18 AST 36 Units/L (13-39) 10/28/17 12:18 ALT 54 Units/L (7-52) H 10/28/17 12:18 Amylase 18 Units/L (29-103) L 10/28/17 12:18 Lipase 37 Units/L (11-82) 10/28/17 12:18 Folate 17.3 ng/mL (3.0-16.0) H 10/29/17 07:24 - Attending Attestation I have personally performed a face to face evaluation on this patient. I have reviewed and agree with the care plan. History and Exam by me shows: Pt seen. Nausea and vomiting for the last 3 weeks she also has microcytic anemia but denies any overt bleeding. Recommendation: EGD colonoscopy in the morning for her anemia workup and also to do biopsy the stomach to look for causes for her nausea and vomiting
[2017-10-29] MEDS ORDERED: GI Cocktail 40 ML EACH PO ONE (10:58)
[2017-10-29] MEDS ORDERED: Potassium Chloride 40 MEQ, Lidocaine 1% 2 ML in D5% in Water 500 ML IVPB ONE (11:02)
[2017-10-29 12:52] LABS: Adenovirus F 40/41 PCR Not detected (Not detect); Astrovirus PCR Not detected (Not detect); C.difficile Toxin A/B by PCR Not detected (Not detect); Campylobacter by PCR Not detected (Not detect); Cryptosporidium by PCR Not detected (Not detect); Cyclospora cayetanensis PCR Not detected (Not detect); E. coli O157 by PCR Not detected (Not detect); Entamoeba histolytica PCR Not detected (Not detect); Enteroaggregative E.coli(EAEC) Not detected (Not detect); Enteropathogenic E.coli(EPEC) Not detected (Not detect); Enterotoxigenic E.coli (ETEC) Not detected (Not detect); Giardia lamblia PCR Not detected (Not detect); Norovirus GI/GII PCR Not detected (Not detect); Plesiomonas shigelloides PCR Not detected (Not detect); Rotavirus A PCR Not detected (Not detect); Salmonella PCR Not detected (Not detect); Sapovirus PCR Not detected (Not detect); Shig/EnteroinvasiveE coli EIEC Not detected (Not detect); Shigalike tox-prod E coli STEC Not detected (Not detect); Vibrio PCR Not detected (Not detect); Vibrio cholerae PCR Not detected (Not detect); Yersinia enterocolitica PCR Not detected (Not detect)
[2017-10-29] MEDS: Metoclopramide 10 MG/2 ML VIAL IVP SCH ×3 (13:28→23:55)
[2017-10-29] MEDS ORDERED: SODIUM CHLORIDE/NAHCO3/KCL/PEG 4,000 ML SOLN.RECON PO ONE (17:00)
[2017-10-29] MEDS: Latanoprost 2.5 ML BOTTLE BOTH EYES SCH (20:28)
[2017-10-30] MEDS: 0.9 % Sodium Chloride 1,000 ML IVC SCH (00:05)
[2017-10-30 04:18] LABS: Basophils % 0.5 %; Eosinophils # 0.6 K/mcL (0.0-0.6); Eosinophils % 6.5 %; Hematocrit 26.5 % (35.3-44.9); Hemoglobin 8.2 g/dL (11.5-15.4); Immature Granulocytes % 1.2 % (0-4); Lymphocytes # 1.7 K/mcL (0.6-4.6); Lymphocytes % 19.7 %; Mean Corpuscular HGB Conc 30.9 g/dL (31.6-35.5); Mean Corpuscular Hemoglobin 25.4 pg (28.0-33.3); Monocytes # 0.9 K/mcL (0.0-1.3); Neutrophils # 5.3 K/mcL (1.6-8.9); Platelet Count 341 K/mcL (140-400); Red Blood Count 3.23 M/mcL (3.82-4.97); Segmented Neutrophils % 62.1 %
[2017-10-30 04:34] LABS: BUN/Creatinine Ratio 12 (6-26); Blood Urea Nitrogen 11 mg/dL (6-20); Calcium 8.2 mg/dL (8.6-10.3); Carbon Dioxide 23 mEq/L (23-29); Chloride 107 mEq/L (98-107); Glucose 94 mg/dL (70-105); Magnesium 1.2 mg/dL (1.6-2.6); Osmolality,Calculated 287 (280-300); Potassium 2.9 mEq/L (3.5-5.1); Sodium 139 mEq/L (136-145); eGFR For African Americans > 60 (> 60); eGFR For Non-African Americans > 60 (> 60)
[2017-10-30] MEDS: Metoclopramide 10 MG/2 ML VIAL IVP SCH ×4 (06:09→23:10)
[2017-10-30] MEDS: *HR* Heparin 5,000 UNIT/ML VIAL SQ SCH ×3 (06:09→23:10)
[2017-10-30] MEDS ORDERED: Potassium Chloride 40 MEQ, Lidocaine 1% 2 ML in D5% in Water 500 ML IVPB ONE (07:52)
--- NOTE | 2017-10-30 07:58 | Internal Med Progress Note ---
<Brendon Johnson - Last Filed: 10/30/17 10:39> Date of Encounter: 10/30/17 Time of Encounter: 08:11 - Assessment and plan (1) Nausea & vomiting Current Visit: Yes Status: Acute Assessment and plan: N/v of unclear etiology Symptoms have been persistent for weeks, previously admitted for possible gastritis Associated with loss of electrolytes Continue anti-emetics, IVF, electrolyte replacement Gastroparesis remains on differential, start reglan Alternatively, consider diverticulitis as differential option Fits clinically, hard to tell on CT due to lack of PO contrast Consider cipro/flagyl if patient develops signs of infection GI consult today for EGD/Colonoscopy Nutrition consult Qualifiers: Vomiting type: unspecified Vomiting Intractability: unspecified Qualified Code(s): R11.2 - Nausea with vomiting, unspecified (2) Anemia Current Visit: Yes Status: Chronic Assessment and plan: Chronic, but worsening Hgb has continued to drop (8.2 today) Iron studies demonstrate moderate/severe iron deficiency anemia Scheduled for EGD/Colonoscopy today Begin PO Ferrous Sulfate Qualifiers: Anemia type: iron deficiency Iron deficiency anemia type: unspecified iron deficiency Qualified Code(s): D50.9 - Iron deficiency anemia, unspecified (3) Hypokalemia Current Visit: Yes Status: Acute Assessment and plan: K+ on admission 2.6, Now at 2.9 Repleted in ED with 80mEq, 80mEq yesterday Continue to replace prn Repeat BMP + Mag this morning (4) Diabetes mellitus Current Visit: Yes Status: Chronic Assessment and plan: Will place on sliding scale insulin. Accuchecks. A1c 6.0 on 10/14/17 Qualifiers: Diabetes mellitus type: type 2 Diabetes mellitus assisted insulin use: without superintendent container terminal use Diabetes mellitus complication status: without complication Qualified Code(s): E11.9 - Type 2 diabetes mellitus without complications (5) Hypertension Current Visit: No Status: Chronic Assessment and plan: Resume home antihypertensives Qualifiers: Hypertension type: essential hypertension Qualified Code(s): I10 - Essential (primary) hypertension (6) DVT prophylaxis Current Visit: No Status: Acute (7) OMI (acute kidney injury) Current Visit: Yes Status: Acute - Time Spent With Patient Total time spent is greater than 50% in coordination of care (as documented) at patient's floor/unit and/or counseling patient: - Subjective Interval history: The patient is seen and examined at bedside. She does appear more agitated than she was previously, and she significantly more tired. She does say that she is hungry today, however she is unable to eat because she is scheduled for colonoscopy and EGD today. She also experienced further acute drop in hemoglobin, however she has EGD and colonoscopy scheduled today. - Constitutional Vitals: Temp Pulse Resp BP Pulse Ox 98.3 F 92 16 139/76 94 10/30/17 07:18 10/30/17 07:18 10/30/17 07:18 10/30/17 07:18 10/30/17 07:18 Exam: Gen: Vitals noted. No acute distress. HEENT: oropharynx clear, Normocephalic, atraumatic Neck: Supple. No adenopathy. Cardiac: RRR, no murmur, +S1/S2 Pulmonary: CTA bilaterally, no wheezes, rales or rhonchi, equal chest expansion Abdomen: soft, mild tenderness to palpation in the left upper and lower quadrant , no guarding Back: Nontender throughout. MSK: ROM intact, no joint swelling noted Extremities: no BLE edema, nontender calf, no cyanosis or clubbing Neuro: moves all extremities, no focal deficits Psych: Appropriate mood and behavior Internal Medicine: Result - Labs CBC & Chem 7: 10/30/17 03:46 10/30/17 03:46 Labs: Short CBC 10/29/17 10/30/17 Range/Units 07:24 03:46 WBC 10.0 8.6 (4.3-11.1) K/mcL Hgb 9.1 L D 8.2 L (11.5-15.4) g/dL Hct 29.4 L 26.5 L (35.3-44.9) % Plt Count 394 341 (140-400) K/mcL Neutrophils # 6.1 5.3 (1.6-8.9) K/mcL BMP 10/29/17 10/30/17 07:24 03:46 Sodium 136 139 Potassium 2.7 L 2.9 L Chloride 99 107 Carbon Dioxide 25 23 BUN 16 11 Creatinine 1.04 0.89 Glucose 112 H 94 Calcium 8.5 L 8.2 L Consult Discharge Plan - Plan Referrals: Terrance Mariano MD [Primary Care Provider] - <Sunday Pope H - Last Filed: 10/30/17 12:50> Date of Encounter: 10/30/17 - Assessment and plan (1) Diabetes mellitus Current Visit: Yes Status: Chronic Qualifiers: Diabetes mellitus type: type 2 Diabetes mellitus superintendent container terminal insulin use: without superintendent container terminal use Diabetes mellitus complication status: without complication Qualified Code(s): E11.9 - Type 2 diabetes mellitus without complications (2) Hypertension Current Visit: No Status: Chronic Qualifiers: Hypertension type: essential hypertension Qualified Code(s): I10 - Essential (primary) hypertension (3) DVT prophylaxis Current Visit: No Status: Acute (4) Nausea & vomiting Current Visit: Yes Status: Acute Qualifiers: Vomiting type: unspecified Vomiting Intractability: unspecified Qualified Code(s): R11.2 - Nausea with vomiting, unspecified (5) Hypokalemia Current Visit: Yes Status: Acute (6) Anemia Current Visit: Yes Status: Chronic Qualifiers: Anemia type: iron deficiency Iron deficiency anemia type: unspecified iron deficiency Qualified Code(s): D50.9 - Iron deficiency anemia, unspecified (7) OMI (acute kidney injury) Current Visit: Yes Status: Acute - Time Spent With Patient Total time spent is greater than 50% in coordination of care (as documented) at patient's floor/unit and/or counseling patient: - Constitutional Vitals: Temp Pulse Resp BP Pulse Ox 97.6 F 85 16 128/85 96 10/30/17 11:26 10/30/17 11:26 10/30/17 11:26 10/30/17 11:26 10/30/17 11:30 Internal Medicine: Result - Labs CBC & Chem 7: 10/30/17 03:46 10/30/17 03:46 Labs: Short CBC 10/30/17 Range/Units 03:46 WBC 8.6 (4.3-11.1) K/mcL Hgb 8.2 L (11.5-15.4) g/dL Hct 26.5 L (35.3-44.9) % Plt Count 341 (140-400) K/mcL Neutrophils # 5.3 (1.6-8.9) K/mcL BMP 10/30/17 03:46 Sodium 139 Potassium 2.9 L Chloride 107 Carbon Dioxide 23 BUN 11 Creatinine 0.89 Glucose 94 Calcium 8.2 L - Attending Attestation acute blood loss anemia possibly secondray to acute gastritis/PUD , consider possible gastroparesis reglan Protonix IV If abdominal tenderness worsens, will start Cipro and flagyl IV if diverticulitis is suspected GI consulted for EGD and colonoscopy CT of abdomen: 1. Mild interlobular septal thickening in the lung bases. No pleural effusions. 2. 10 mm nonobstructive left renal calculus. 3. No obvious gastrointestinal abnormality. 4. Postoperative appearance of the lumbar spine. I examined this patient and my medical decision-making was reviewed with the Resident Physician. I agree with the documented findings, disposition and treatment plan as described except to the extent set forth below.
[2017-10-30] MEDS: Insulin LISPRO 300 UNITS/3 ML VIAL SQ SCH ×4 (08:58→23:10)
[2017-10-30] MEDS: Pantoprazole 40 MG VIAL IVP SCH ×2 (09:07→23:09)
[2017-10-30] MEDS: Folic Acid 1 MG TABLET PO SCH (09:07)
[2017-10-30] MEDS: Aspirin 81 MG TAB.CHEW PO SCH (09:07)
[2017-10-30] MEDS: Gabapentin 300 MG CAPSULE PO SCH ×3 (09:07→23:09)
[2017-10-30] MEDS: tiZANidine 4 MG TABLET PO SCH ×3 (09:08→23:09)
--- NOTE | 2017-10-30 12:39 | Anesthesia Evaluation PreOp ---
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 Chronic pain/Neuropathy) Other Medical History: Renal (Acute Kidney injury), Diabetes Type II, GERD ( Nausea & Vomiting this admission), Other (Arthritis. Glaucoma) Anesthesia History: Past Anesthesia (Leanne, Hyster, Knee replacement, O) Alcohol Use: rarely Drug use: none Medications and Allergies Aspirin 81 mg PO DAILY 07/11/16 [History] Atorvastatin [Lipitor] 10 mg PO HS 07/11/16 [History] Carvedilol [Coreg] 25 mg PO BID 07/11/16 [History] Folic Acid 1 mg PO DAILY 07/11/16 [History] LORazepam [Ativan] 1 mg PO DAILY PRN 07/11/16 [History] Gabapentin [Neurontin] 300 mg PO TID 01/09/17 [History] Pantoprazole Sodium [Protonix] 20 mg PO DAILY 01/09/17 [History] Naproxen 500 mg PO BID 10 Days #20 tablet 06/29/17 [Rx] Benzoyl Peroxide 1 appl TP HS 10/14/17 [History] Clindamycin Phosphate [Cleocin T] 1 appl TP BID 10/14/17 [History] Hydrochlorothiazide [Microzide] 12.5 mg PO DAILY 10/14/17 [History] Latanoprost [Xalatan] 1 drop OP DAILY 10/14/17 [History] Mupirocin [Bactroban Oint] 1 appl TP DAILY 10/14/17 [History] Polyethylene Glycol 3350 17 gm PO DAILY 10/14/17 [History] Promethazine [Phenergan] 25 mg PO BID PRN 10/14/17 [History] SitaGLIPtin [Januvia] 100 mg PO DAILY 10/14/17 [History] Tizanidine HCl 4 mg PO TID 10/14/17 [History] hydrOXYzine pamoate [Hydroxyzine Pamoate] 25 mg PO Q6-8H PRN 10/14/17 [History] Ondansetron HCl [Zofran] 4 mg PO Q8HR PRN #15 tab 10/16/17 [Rx] 3 Allergy/AdvReac Type Severity Reaction Status Date / Time sulfamethoxazole Allergy Itching Verified 10/14/17 15:06 [From Bactrim] losartan AdvReac Itching Verified 10/14/17 15:06 tramadol AdvReac Itching Verified 10/14/17 15:06 - Meds/Allergy Pre-op Review Medications Reviewed: Yes Allergies Reviewed: Yes Beta Blockers on Current Med List: Yes (Carvedilol) If Beta Blockers taken, Date/Time (Last Dose taken): 10/30/2017 @ 0907 Anesthesia Results - Labs 10/30/17 03:46 10/30/17 03:46 Laboratory Tests 10/14/17 10/30/17 10/30/17 17:14 03:46 07:20 Est GFR (Non-Af Amer) > 60 POC Glucose 96 Est Mean Plasma Glucose 126 Hemoglobin A1c 6.0 H Laboratory Results Impressions Abdomen/Pelvis CT 10/28/17 17:00 IMPRESSION: 1. Mild interlobular septal thickening in the lung bases. No pleural effusions. 2. 10 mm nonobstructive left renal calculus. 3. No obvious gastrointestinal abnormality. 4. Postoperative appearance of the lumbar spine. D/ / Bennie Torrez / Bennie Torrez Interpreting Provider: Bennie Torrez Anesthesia Exam Vital Signs Temp Pulse Resp BP Pulse Ox 10/30/17 11:30 96 10/30/17 11:26 97.6 F 85 16 128/85 96 10/30/17 07:18 98.3 F 92 16 139/76 94 10/30/17 05:00 97.9 F 88 16 106/86 95 10/30/17 00:00 97.9 F 97 16 92/69 99 10/29/17 19:57 97.9 F 86 16 93/79 90 10/29/17 15:10 97.5 F L 82 16 103/65 92 Intake and Output 10/29/17 10/30/17 10/30/17 23:59 07:59 15:59 Intake Total 1000 / 1000 220 / 220 Output Total 300 / 300 500 / 500 500 / 500 Balance 700 / 700 -280 / -280 -500 / -500 Intake: IV Fluids 1000 / 1000 0.9 % Sodium Chloride 1,000 ML 1000 / 1000 @ 125 mls/hr IVC .Q8H [facility] Rx#: [id number] Oral 0 / 0 220 / 220 Output: Urine 200 / 200 500 / 500 Stool 100 / 100 500 / 500 Other: Stool Color Yellow Weight 66.3 kg Blood Glucose* 86 96 120 Patient Weight 10/30/17 23:59 Weight 66.3 kg - HEENT Pupil (Motor): Pupils equal, EOMI Mallampati: II Teeth: Normal Oral Opening: Greater than 3 - [employer] DES[employer] LOC: Oriented [employer] DES[employer] Motor: Normal RUE, Normal LUE, Normal RLE, Normal LLE, Normal Face [employer] Sensory: Normal: RUE, LUE, RLE, LLE, Face - Cardiac Rhythm: Regular Murmur: None - Pulmonary Breath Sounds: bilateral Clear Respiratory Effort: Symmetrical Anesthesia Assess/Plan ASA Score: 2 Modified Daiana Scale for Level of Consciousness: Cooperative, oriented, and tranquil Anesthetic Plan: MAC Monitoring Plan: Standard Monitors Recovery Plan: PACU Anes Supervising Prov Stmt: Pt seen/evaluated, R&B Discussed,questions answered and consent obtained. - MD Fabiano <Leo Farrell - Last Filed: 10/30/17 13:21> Date of Encounter: 10/30/17 Anesthesia Results - Labs 10/30/17 03:46 10/30/17 03:46 - Imaging EKG: report reviewed (SR non specific changes) Anesthesia Exam Height: 5'1 Weight: 146 lbs NPO (# of Hours): MN Pain Scale: 0 - HEENT Pupil (Motor): Pupils equal, EOMI Mallampati: III Teeth: Normal Oral Opening: Less than or equal to 3 - [employer] DES[employer]ER LOC: Oriented [employer] DES[employer]ER Motor: Normal RUE, Normal LUE, Normal RLE, Normal LLE, Normal Face [employer] Sensory: Normal: RUE, LUE, RLE, LLE, Face - Cardiac Rhythm: Regular Murmur: None JVD: No Carotid Bruit: No - Pulmonary Breath Sounds: bilateral Clear Respiratory Effort: Symmetrical Anesthesia Assess/Plan ASA Score: 2 Modified Daiana Scale for Level of Consciousness: Cooperative, oriented, and tranquil Anesthetic Plan: MAC Monitoring Plan: Standard Monitors Recovery Plan: Other (Discussed MAC, agrees to proceed)
[2017-10-30] MEDS ORDERED: Propofol 500 MG/50 ML INFUS..BTL ONE (13:06)
[2017-10-30] MEDS ORDERED: 0.9 % Sodium Chloride 500 ML IVC SCH (13:15)
[2017-10-30] MEDS ORDERED: Simethicone 40 MG/0.6 ML MLS IR ONE (13:33)
[2017-10-30] MEDS ORDERED: Tetracaine/Benzocaine/Butamben 200MG/SPRAY (100SPY/BOT) MM ONE (13:33)
[2017-10-30] MEDS: Magnesium Oxide 400 MG TABLET PO SCH (17:49)
[2017-10-30] MEDS: Latanoprost 2.5 ML BOTTLE BOTH EYES SCH (23:10)
[2017-10-31] MEDS ORDERED: tiZANidine 4 MG TABLET PO PRN (00:34)
[2017-10-31] MEDS ORDERED: 0.9 % Sodium Chloride 1,000 ML IVC ONE (00:34)
[2017-10-31] MEDS ORDERED: 0.9 % Sodium Chloride 1,000 ML ONE (00:38)
[2017-10-31] MEDS: Metoclopramide 10 MG/2 ML VIAL IVP SCH (05:40)
[2017-10-31] MEDS: *HR* Heparin 5,000 UNIT/ML VIAL SQ SCH (05:40)
[2017-10-31 05:52] LABS: Basophils % 0.6 %; Eosinophils # 0.4 K/mcL (0.0-0.6); Eosinophils % 5.5 %; Hematocrit 28.4 % (35.3-44.9); Hemoglobin 8.7 g/dL (11.5-15.4); Immature Granulocytes % 0.8 % (0-4); Lymphocytes # 2.1 K/mcL (0.6-4.6); Lymphocytes % 29.5 %; Mean Corpuscular HGB Conc 30.6 g/dL (31.6-35.5); Mean Platelet Volume 10.7 fL (9.4-12.4); Monocytes # 0.7 K/mcL (0.0-1.3); Monocytes % 9.8 %; Neutrophils # 3.8 K/mcL (1.6-8.9); Nucleated Red Blood Cells 0.3 /100 WBC (0); Platelet Count 316 K/mcL (140-400); Red Blood Count 3.34 M/mcL (3.82-4.97); Red Cell Distribution Width 15.4 % (11.5-14.5); Segmented Neutrophils % 53.8 %
[2017-10-31 06:04] LABS: Alanine Aminotransferase 28 Units/L (7-52); Albumin 2.9 g/dL (3.5-5.7); Albumin/Globulin Ratio 0.9 (1.1-2.2); Alkaline Phosphatase 120 Units/L (34-104); Aspartate Amino Transferase 21 Units/L (13-39); BUN/Creatinine Ratio 9 (6-26); Bilirubin,Total 0.4 mg/dL (0.3-1.0); Blood Urea Nitrogen 7 mg/dL (6-20); Calcium 8.3 mg/dL (8.6-10.3); Carbon Dioxide 21 mEq/L (23-29); Chloride 110 mEq/L (98-107); Globulin 3.1 g/dL (2.4-3.5); Glucose 98 mg/dL (70-105); Osmolality,Calculated 284 (280-300); Potassium 3.7 mEq/L (3.5-5.1); Sodium 138 mEq/L (136-145); eGFR For African Americans > 60 (> 60); eGFR For Non-African Americans > 60 (> 60)
[2017-10-31] MEDS ORDERED: Ipratropium/Albuterol Neb 3 ML IH ONE ×2 (06:11→08:21)
[2017-10-31] MEDS: Insulin LISPRO 300 UNITS/3 ML VIAL SQ SCH (08:00)
--- NOTE | 2017-10-31 09:41 | Discharge Summary ---
- NOTES TO OUTPATIENT PROVIDER Notes to Outpatient Provider: Follow-up with primary care physician within the next 7 days. Continue omeprazole 40 mg twice a day, magnesium and iron supplements. Orders not resulted at time of discharge: Pending orders 10/30/17 13:41 Surgical Pathology [PTH] Routine Date of Encounter: 10/31/17 Time of Encounter: 09:39 - Discharge Diagnosis (1) Anemia Priority: Primary Status: Chronic Assessment and Plan: Acute on chronic blood loss anemia likely secondary to esophagitis and duodenitis Alsoe iron deficiency anemia Qualifiers: Anemia type: iron deficiency Iron deficiency anemia type: unspecified iron deficiency Qualified Code(s): D50.9 - Iron deficiency anemia, unspecified (2) Hypertension Priority: Secondary Status: Chronic Qualifiers: Hypertension type: essential hypertension Qualified Code(s): I10 - Essential (primary) hypertension (3) Nausea & vomiting Priority: Primary Status: Acute Assessment and Plan: Secondary to esophagitis and duodenitis Qualifiers: Vomiting type: unspecified Vomiting Intractability: unspecified Qualified Code(s): R11.2 - Nausea with vomiting, unspecified (4) Hypokalemia Priority: Secondary Status: Acute (5) OMI (acute kidney injury) Priority: Primary Status: Acute Assessment and Plan: Likely pre-renal from volume loss. Comments: Secondary to dehydration Creatinine increased to 1.09, improved down to 0.77 after IV fluids (6) Diabetes mellitus Priority: Secondary Status: Chronic Assessment and Plan: A1c 6.0 on 10/14/17 Qualifiers: Diabetes mellitus type: type 2 Diabetes mellitus detention insulin use: without detention use Diabetes mellitus complication status: without complication Qualified Code(s): E11.9 - Type 2 diabetes mellitus without complications Hospital course: Ms. Penn is a 61 year old female with PMH of DM not insulin-dependent, HLD, HTN, arthritis who presented with nausea vomiting and generalized malaise. This was an ongoing issue for at least 3 weeks. She was admitted recently for similar complaints. Unable to keep PO. Some abdominal pain in the epigastric, RUQ, LUQ areas. No diarrhea usually but today had loose watery stools. Has lost about 35 Ibs in the last month or so. Smell of food made her nauseous. Denied fever, chills, headache, blurry vision, chest pain, shortness of breath, urinary symptoms, or neurological symptoms. In the ED, was found to have signs of dehydration, hypokalemia, and CT abd/pelvis failed to show acute findings. Given IV fluids, anti-emeitics, potassium IV in the ED. K+ on admission 2.6 Creatinine returned back to normal after IV hydration CT scan of the abdomen showed:1. Mild interlobular septal thickening in the lung bases. No pleural effusions. 2. 10 mm nonobstructive left renal calculus. 3. No obvious gastrointestinal abnormality. 4. Postoperative appearance of the lumbar spine. Symptoms have been persistent for weeks, previously admitted for possible gastritis Was started on IV Protonix Gi panel did not show any positive results. Upper endoscopy showed evidence of esophagitis and duodenitis, colonoscopy was unremarkable. Hemoglobin has been stable above 8 since yesterday, no evidence of active bleeding. The patient's abdominal pain has resolved completely Time spent discussing smoking cessation with patient: 3 to 10 minutes - Time Spent with Patient Total time spent providing and/or coordinating discharge services: Greater than 30 minutes (40 minutes) - Discharge Medications Prescriptions: Ferrous Sulfate 325 mg PO BID #60 tablet Magnesium Oxide [Mag-Ox] 400 mg PO DAILY #30 tablet Omeprazole [PriLOSEC] 40 mg PO BID #60 cap Home Medications: Aspirin 81 mg PO DAILY 07/11/16 [History] Atorvastatin [Lipitor] 10 mg PO HS 07/11/16 [History] Carvedilol [Coreg] 25 mg PO BID 07/11/16 [History] Folic Acid 1 mg PO DAILY 07/11/16 [History] LORazepam [Ativan] 1 mg PO DAILY PRN 07/11/16 [History] Gabapentin [Neurontin] 300 mg PO TID 01/09/17 [History] Naproxen 500 mg PO BID 10 Days #20 tablet 06/29/17 [Rx] Benzoyl Peroxide 1 appl TP HS 10/14/17 [History] Clindamycin Phosphate [Cleocin T] 1 appl TP BID 10/14/17 [History] Hydrochlorothiazide [Microzide] 12.5 mg PO DAILY 10/14/17 [History] Latanoprost [Xalatan] 1 drop OP DAILY 10/14/17 [History] Mupirocin [Bactroban Oint] 1 appl TP DAILY 10/14/17 [History] Polyethylene Glycol 3350 17 gm PO DAILY 10/14/17 [History] Promethazine [Phenergan] 25 mg PO BID PRN 10/14/17 [History] SitaGLIPtin [Januvia] 100 mg PO DAILY 10/14/17 [History] Tizanidine HCl 4 mg PO TID 10/14/17 [History] hydrOXYzine pamoate [Hydroxyzine Pamoate] 25 mg PO Q6-8H PRN 10/14/17 [History] Ondansetron HCl [Zofran] 4 mg PO Q8HR PRN #15 tab 10/16/17 [Rx] Ferrous Sulfate 325 mg PO BID #60 tablet 10/31/17 [Rx] Magnesium Oxide [Mag-Ox] 400 mg PO DAILY #30 tablet 10/31/17 [Rx] Omeprazole [PriLOSEC] 40 mg PO BID #60 cap 10/31/17 [Rx] Allergies/Adverse Reactions: 3 Allergy/AdvReac Type Severity Reaction Status Date / Time sulfamethoxazole Allergy Itching Verified 10/14/17 15:06 [From Bactrim] losartan AdvReac Itching Verified 10/14/17 15:06 tramadol AdvReac Itching Verified 10/14/17 15:06 Date of admission: 10/28/17 20:03 Primary care physician: Terrance Mariano MD Consults: 10/28/17 21:23 Consult to Gastroenterology [CONS] Routine Consulting Provider: Gastroenterology Jayda Reason for Consult: intractable nausea/vomiting Call Completed: No 10/28/17 22:27 Consult to Nutrition [CONS] Routine Comment: Consulting Provider: NUTRITION Reason for Dietary Consult: Diet Education Consult to Pastoral Services [CONS] Routine Comment: - Constitutional Vitals: Temp Pulse Resp BP Pulse Ox 98.2 F 93 23 139/101 97 10/31/17 07:13 10/31/17 07:13 10/31/17 07:13 10/31/17 07:13 10/31/17 07:13 General appearance: Present: A&O X 3 - Head Head exam: Present: atraumatic, normocephalic - Eye Eye exam: Present: PERRL, conjuntiva pink, sclera anicteric Pupils: Present: PERRL - Neck Neck exam general surgery: Present: supple, trachea midline. Absent: lymphadenopathy - Respiratory Respiratory exam: Present: CTAB. Absent: accessory muscle use, rales, rhonchi, wheezes - Cardiovascular Cardiovascular exam: Present: RRR, +S1, +S2. Absent: diastolic murmur, gallop, rubs, systolic murmur - GI/Abdominal GI/Abdominal exam: Present: normal bowel sounds, soft, no peritoneal signs. Absent: distended, tenderness - Extremities Exam Extremities exam: Present: warm, radial pulses palpable and symmetrical. Absent : calf tenderness, cyanotic, pedal edema - Neurological Exam Neurological exam: Present: CN II-XII intact, oriented X3, no focal deficits. Absent: pronater drift, facial droop, speech deficit - Skin Skin exam: Present: dry, intact - Patient Status Disposition: Home, Self-Care Condition: Good Overall status at discharge: patient is back to baseline - Discharge Instructions Follow Up With: Terrance Mariano MD [Primary Care Provider] - Forms: ED Satisfaction Letter - Diet and Activity Activity: increase activity as tolerated Diet: diabetic diet
[2017-10-31 10:39] VITALS: BP 130/94
[2017-10-31] MEDS: Magnesium Oxide 400 MG TABLET PO SCH (12:32)
[2017-10-31] MEDS: Gabapentin 300 MG CAPSULE PO SCH (12:32)
[2017-10-31] MEDS: Folic Acid 1 MG TABLET PO SCH (12:32)
[2017-10-31] MEDS: Aspirin 81 MG TAB.CHEW PO SCH (12:32)
== END 2017-10-31 13:18 | disposition home or self-care (01) | DRG 391 ==
LOC: EMEROO 11:44 → 2NENU 11:44
PROVIDERS: ADMIT Internal Medicine; ATTEND Internal Medicine Nephrology
PROC: ENDOEBX (2017-10-30 13:00)

== ENCOUNTER 2019-04-22 07:28 | Inpatient (IN) ==
[2019-04-22] MEDS ORDERED: Ringers Solution, Lactated 1,000 ML IVC SCH ×2 (08:00→13:34)
[2019-04-22] MEDS ORDERED: Ondansetron 4 MG/2 ML VIAL IVP ONE (08:24)
[2019-04-22] MEDS ORDERED: *HR* OxyCODONE Immed Rel 5 MG TABLET PO PRN (08:24)
[2019-04-22] MEDS ORDERED: *HR* Promethazine 25 MG/ML VIAL IVP PRN ×2 (08:24→13:34)
[2019-04-22] MEDS ORDERED: *HR* FentaNYL (PF) 100 MCG/2 ML VIAL ONE ×2 (08:34→08:47)
[2019-04-22] MEDS ORDERED: Ondansetron 4 MG/2 ML VIAL ONE ×2 (08:34→10:02)
[2019-04-22] MEDS ORDERED: *HR* Propofol 200 MG/20 ML VIAL IVP ONE (08:34)
[2019-04-22] MEDS ORDERED: Dexamethasone 4 MG/ML VIAL ONE (08:34)
[2019-04-22] MEDS ORDERED: Lidocaine -MPF 2% 2 ML VIAL ONE (08:34)
[2019-04-22] MEDS ORDERED: *HR* Midazolam HCl 2 MG/2 ML VIAL ONE (08:34)
[2019-04-22] MEDS ORDERED: Tranexamic Acid 1,000 MG/10 ML VIAL ONE (08:53)
[2019-04-22] MEDS ORDERED: Propofol 500 MG/50 ML INFUS..BTL ONE (09:01)
[2019-04-22] MEDS ORDERED: ROPIVACAINE/PF/NS 0.25% 1 EACH SYRINGE INTRAART ONE (09:04)
[2019-04-22] MEDS ORDERED: Acetaminophen IV 1,000 MG/100 ML INFUS..BTL IVPB ONE (09:07)
[2019-04-22] MEDS ORDERED: Ethanol\\Acetic Acid\\Na Ace\\Ben 1,000 ML IRRIG.SOLN IR ONE (09:26)
[2019-04-22] MEDS ORDERED: EPHEDrine 50 MG/ML VIAL ONE ×2 (11:22→12:02)
[2019-04-22] MEDS ORDERED: *HR* PHENYLEPHRINE 1,000 MCG/10 ML SYRINGE IVP ONE (11:22)
[2019-04-22] MEDS ORDERED: *HR* HYDROMORPHONE 2 MG/ML VIAL ONE (11:26)
[2019-04-22] MEDS: *HR* HYDROmorphone (PF) 1 MG/ML SYRINGE IVP PRN ×4 (12:56→13:17)
[2019-04-22 13:15] LABS: Hematocrit 34.1 % (35.3-44.9); Hemoglobin 10.9 g/dL (11.5-15.4)
[2019-04-22] MEDS ORDERED: Baclofen 10 MG TABLET PO PRN (13:34)
[2019-04-22] MEDS ORDERED: MOM Conc 10 ML UD.LIQ PO PRN (13:34)
[2019-04-22] MEDS ORDERED: Sennosides 8.6 MG TABLET PO PRN (13:34)
[2019-04-22] MEDS ORDERED: Naloxone 0.4 MG/ML INJ IVP PRN (13:34)
[2019-04-22] MEDS ORDERED: Ondansetron 4 MG/2 ML VIAL IVP PRN (13:34)
[2019-04-22] MEDS ORDERED: GOLIMUMAB IM SCH (13:34)
[2019-04-22] MEDS: Multivit/Ca/Min/Fe/FA 1 TAB TABLET PO SCH (16:52)
[2019-04-22] MEDS: HYDROcodone BIT/Homatropine 5 MG TABLET PO PRN (17:07)
[2019-04-22] MEDS: Ascorbic Acid 500 MG TABLET PO SCH (17:13)
[2019-04-22] MEDS: *HR* OxyCODONE Immed Rel 5 MG TABLET PO PRN (19:16)
[2019-04-22] MEDS: OXcarbazepine 150 MG TABLET PO SCH (20:23)
[2019-04-22] MEDS ORDERED: *HR* LORazepam 1 MG TABLET PO SCH (21:00)
[2019-04-22] MEDS ORDERED: Temazepam 15 MG CAPSULE PO PRN (21:00)
[2019-04-22] MEDS ORDERED: Latanoprost 2.5 ML BOTTLE BOTH EYES SCH (21:00)
[2019-04-22] MEDS ORDERED: Gabapentin 300 MG CAPSULE PO SCH (21:00)
[2019-04-23] MEDS: *HR* OxyCODONE Immed Rel 5 MG TABLET PO PRN ×3 (00:39→12:33)
[2019-04-23] MEDS: HYDROcodone BIT/Homatropine 5 MG TABLET PO PRN (03:24)
[2019-04-23 05:07] LABS: Basophils % 0.3 %; Hematocrit 31.2 % (35.3-44.9); Hemoglobin 10.1 g/dL (11.5-15.4); Immature Granulocytes % 0.5 % (0-4); Lymphocytes # 0.7 K/mcL (0.6-4.6); Lymphocytes % 6.1 %; Mean Corpuscular HGB Conc 32.4 g/dL (31.6-35.5); Mean Corpuscular Hemoglobin 28.4 pg (28.0-33.3); Mean Corpuscular Volume 87.6 fL (83.0-100.0); Mean Platelet Volume 11.5 fL (9.4-12.4); Monocytes # 0.8 K/mcL (0.0-1.3); Monocytes % 7.7 %; Neutrophils # 9.2 K/mcL (1.6-8.9); Platelet Count 181 K/mcL (140-400); Red Blood Count 3.56 M/mcL (3.82-4.97); Red Cell Distribution Width 14.6 % (11.5-14.5); Segmented Neutrophils % 85.4 %; White Blood Count 10.7 K/mcL (4.3-11.1)
[2019-04-23 05:27] LABS: BUN/Creatinine Ratio 18 (6-26); Blood Urea Nitrogen 18 mg/dL (8-23); Calcium 8.7 mg/dL (8.6-10.3); Carbon Dioxide 25 mEq/L (23-29); Chloride 104 mEq/L (98-107); Glucose 170 mg/dL (70-105); Osmolality,Calculated 292 (280-300); Potassium 4.1 mEq/L (3.5-5.1); Sodium 138 mEq/L (136-145); eGFR For African Americans > 60 (> 60); eGFR For Non-African Americans 56 (> 60)
[2019-04-23] MEDS ORDERED: *HR* Enoxaparin 30 MG/0.3 ML SYRINGE SQ SCH ×2 (06:00)
[2019-04-23] MEDS: OXcarbazepine 150 MG TABLET PO SCH (07:37)
[2019-04-23] MEDS: Ascorbic Acid 500 MG TABLET PO SCH (07:37)
[2019-04-23] MEDS: Multivit/Ca/Min/Fe/FA 1 TAB TABLET PO SCH (07:38)
[2019-04-23] MEDS ORDERED: Magnesium Oxide 400 MG TABLET PO SCH (09:00)
[2019-04-23] MEDS ORDERED: *HR* SitaGLIPtin 100 MG TABLET PO SCH (09:00)
[2019-04-23] MEDS ORDERED: Aspirin Enteric Coated 81 MG Tablet PO SCH (09:00)
[2019-04-23 12:39] VITALS: BP 131/78
== END 2019-04-23 13:52 | disposition home or self-care (01) | DRG 470 ==
LOC: SAMDAY 07:28 → 3NENU 13:36
PROVIDERS: ADMIT Orthopaedic Surgery; ATTEND Orthopaedic Surgery

== ENCOUNTER 2019-09-03 10:20 | Inpatient (IN) ==
[2019-09-03] MEDS ORDERED: Nitroglycerin 0.4 MG TAB.SUBL SL PRN (10:29)
[2019-09-03] MEDS ORDERED: Aspirin 81 MG TAB.CHEW PO ONE (10:29)
[2019-09-03 10:43] LABS: Basophils # 0.1 K/mcL (0.0-0.2); Basophils % 0.7 %; Eosinophils # 0.4 K/mcL (0.0-0.6); Eosinophils % 4.3 %; Hematocrit 36.9 % (35.3-44.9); Hemoglobin 11.4 g/dL (11.5-15.4); Immature Granulocytes % 1.6 % (0-4); Lymphocytes # 1.7 K/mcL (0.6-4.6); Lymphocytes % 20.8 %; Mean Corpuscular HGB Conc 30.9 g/dL (31.6-35.5); Mean Corpuscular Volume 87.4 fL (83.0-100.0); Mean Platelet Volume 10.9 fL (9.4-12.4); Monocytes # 0.7 K/mcL (0.0-1.3); Monocytes % 8.8 %; Neutrophils # 5.2 K/mcL (1.6-8.9); Platelet Count 201 K/mcL (140-400); Red Blood Count 4.22 M/mcL (3.82-4.97); Segmented Neutrophils % 63.8 %; White Blood Count 8.1 K/mcL (4.3-11.1)
[2019-09-03 11:04] LABS: BUN/Creatinine Ratio 16 (6-26); Blood Urea Nitrogen 21 mg/dL (8-23); Calcium 8.9 mg/dL (8.6-10.3); Carbon Dioxide 25 mEq/L (23-29); Chloride 104 mEq/L (98-107); Glucose 146 mg/dL (70-105); Osmolality,Calculated 290 (280-300); Potassium 3.7 mEq/L (3.5-5.1); Sodium 137 mEq/L (136-145); eGFR For African Americans 51 (> 60); eGFR For Non-African Americans 42 (> 60)
[2019-09-03 11:05] LABS: Troponin I < 0.03 ng/mL (< 0.04)
[2019-09-03] MEDS ORDERED: 0.9 % Sodium Chloride 1,000 ML IVC STA (11:06)
[2019-09-03] MEDS ORDERED: *HR* FentaNYL (PF) 100 MCG/2 ML VIAL IVP ONE (11:11)
[2019-09-03] MEDS ORDERED: Ondansetron 4 MG/2 ML VIAL IVP PRN (11:26)
[2019-09-03] MEDS ORDERED: 0.9 % Sodium Chloride 1,000 ML IVC SCH (11:30)
[2019-09-03] MEDS ORDERED: *HR* Dextrose 50 % in Water (Syg) 50 ML SYRINGE IVP PRN (12:20)
[2019-09-03] MEDS ORDERED: D5% in Water 1,000 ML IVC PRN (12:20)
[2019-09-03] MEDS ORDERED: Dextrose Gel 15 GM/37.5 ML TUBE PO PRN ×2 (12:20)
[2019-09-03] MEDS ORDERED: *HR* LORazepam 1 MG TABLET PO PRN (12:25)
[2019-09-03 12:52] LABS: Bilirubin,Urine Negative (Negative); Blood,Urine Large (Negative); Color,Urine Yellow (Yellow); Glucose,Urine (UA) Normal (Normal); Ketones,Urine Negative (Negative); Leukocyte Esterase,Urine Small (Negative); Nitrite,Urine Negative (Negative); PH,Urine 5.5 pH Units (5.0-8.0); Protein,Urine 100 mg/dL (Neg-Trace); Specific Gravity,Urine 1.023 (1.010-1.025); Urobilinogen,Urine Normal (Normal)
[2019-09-03 12:53] LABS: Bacteria,Urine None Seen per hpf (None-Few); Hyaline Casts,Urine None Seen per lpf (None-Few); RBC,Urine TNTC per hpf (0-3); Squamous Epithelial Cell,Urine Many per lpf (None-Few); WBC,Urine 15-30 per hpf (0-3)
[2019-09-03 12:56] LABS: Clarity,Urine Hazy (Clear)
[2019-09-03] MEDS: carvediloL 25 MG TABLET PO SCH (17:52)
[2019-09-03] MEDS: Insulin LISPRO 300 UNITS/3 ML VIAL SQ SCH ×2 (17:52→20:31)
[2019-09-03] MEDS: Latanoprost 2.5 ML BOTTLE BOTH EYES SCH (20:29)
[2019-09-03] MEDS: Famotidine 20 MG TABLET PO SCH (20:29)
[2019-09-04 05:21] LABS: Basophils # 0.1 K/mcL (0.0-0.2); Basophils % 0.6 %; Eosinophils # 0.3 K/mcL (0.0-0.6); Eosinophils % 3.1 %; Hemoglobin 10.5 g/dL (11.5-15.4); INR 1.1; Immature Granulocytes % 1.1 % (0-4); Lymphocytes # 2.2 K/mcL (0.6-4.6); Lymphocytes % 23.6 %; Mean Corpuscular HGB Conc 31.8 g/dL (31.6-35.5); Mean Corpuscular Hemoglobin 27.4 pg (28.0-33.3); Mean Corpuscular Volume 86.2 fL (83.0-100.0); Mean Platelet Volume 11.1 fL (9.4-12.4); Monocytes # 0.9 K/mcL (0.0-1.3); Monocytes % 9.7 %; Neutrophils # 5.8 K/mcL (1.6-8.9); Platelet Count 179 K/mcL (140-400); Red Blood Count 3.83 M/mcL (3.82-4.97); Red Cell Distribution Width 16.1 % (11.5-14.5); Segmented Neutrophils % 61.9 %; White Blood Count 9.4 K/mcL (4.3-11.1)
[2019-09-04 05:38] LABS: Albumin 3.5 g/dL (3.5-5.7); Albumin/Globulin Ratio 1.1 (1.1-2.2); Bilirubin,Total 0.3 mg/dL (0.3-1.0); Globulin 3.3 g/dL (2.4-3.5); Magnesium 1.6 mg/dL (1.6-2.6); Total Protein 6.8 g/dL (6.4-8.9)
[2019-09-04] MEDS: Insulin LISPRO 300 UNITS/3 ML VIAL SQ SCH ×4 (08:12→21:08)
[2019-09-04] MEDS ORDERED: Gabapentin 300 MG CAPSULE PO PRN (08:49)
[2019-09-04] MEDS ORDERED: PARoxetine 20 MG TABLET PO SCH (09:00)
[2019-09-04] MEDS ORDERED: Gabapentin 300 MG CAPSULE PO SCH (09:00)
[2019-09-04] MEDS ORDERED: Magnesium Oxide 400 MG TABLET PO SCH (09:00)
[2019-09-04] MEDS ORDERED: (Leflunomide 20 MG) PO SCH (09:00)
[2019-09-04] MEDS ORDERED: Aspirin 81 MG TAB.CHEW PO SCH (09:00)
[2019-09-04] MEDS: carvediloL 25 MG TABLET PO SCH ×2 (09:05→18:21)
[2019-09-04] MEDS: Famotidine 20 MG TABLET PO SCH (09:06)
[2019-09-04] MEDS ORDERED: 0.9 % Sodium Chloride 1,000 ML IVC SCH (10:15)
[2019-09-04] MEDS ORDERED: cefTRIAXone 1,000 MG in Water for inj. (sterile) 10 ML IVP SCH (11:00)
[2019-09-04] MEDS ORDERED: CefTRIAXone 1,000 MG VIAL ONE (12:04)
[2019-09-04] MEDS: *HR* Heparin 5,000 UNIT/ML VIAL SQ SCH (18:21)
[2019-09-04] MEDS ORDERED: Famotidine 20 MG TABLET PO SCH (21:00)
[2019-09-04] MEDS: Latanoprost 2.5 ML BOTTLE BOTH EYES SCH (21:07)
[2019-09-05 01:48] LABS: Basophils # 0.1 K/mcL (0.0-0.2); Basophils % 0.8 %; Eosinophils # 0.2 K/mcL (0.0-0.6); Hematocrit 33.7 % (35.3-44.9); Hemoglobin 10.4 g/dL (11.5-15.4); Immature Granulocytes % 1.4 % (0-4); Lymphocytes # 2.4 K/mcL (0.6-4.6); Mean Corpuscular HGB Conc 30.9 g/dL (31.6-35.5); Mean Corpuscular Hemoglobin 26.9 pg (28.0-33.3); Mean Corpuscular Volume 87.3 fL (83.0-100.0); Mean Platelet Volume 11.6 fL (9.4-12.4); Monocytes # 0.8 K/mcL (0.0-1.3); Monocytes % 10.1 %; Neutrophils # 4.4 K/mcL (1.6-8.9); Platelet Count 195 K/mcL (140-400); Red Blood Count 3.86 M/mcL (3.82-4.97); Red Cell Distribution Width 16.2 % (11.5-14.5); Segmented Neutrophils % 54.7 %
[2019-09-05 01:54] LABS: Calcium 8.7 mg/dL (8.6-10.3); Potassium 3.9 mEq/L (3.5-5.1)
[2019-09-05] MEDS ORDERED: Acetaminophen 325 MG TABLET PO PRN (05:04)
[2019-09-05] MEDS: *HR* Heparin 5,000 UNIT/ML VIAL SQ SCH (05:19)
[2019-09-05 07:08] VITALS: BP 148/81
[2019-09-05] MEDS: Insulin LISPRO 300 UNITS/3 ML VIAL SQ SCH (07:36)
[2019-09-05] MEDS: carvediloL 25 MG TABLET PO SCH (08:55)
== END 2019-09-05 10:27 | disposition home or self-care (01) | DRG 313 ==
LOC: EMEROOARM 10:20 → 3BNU 10:20
PROVIDERS: ADMIT Family Medicine; ATTEND Family Medicine

== ENCOUNTER 2020-10-29 13:34 | Observation (INO) ==
[2020-10-29 14:11] LABS: Hematocrit 39.6 % (35.3-44.9); Hemoglobin 12.4 g/dL (11.5-15.4); Immature Granulocytes % 0.8 % (0-4); Lymphocytes % 18.1 %; Mean Corpuscular HGB Conc 31.3 g/dL (31.6-35.5); Mean Corpuscular Hemoglobin 28.3 pg (28.0-33.3); Mean Corpuscular Volume 90.4 fL (83.0-100.0); Mean Platelet Volume 11.6 fL (9.4-12.4); Monocytes % 7.7 %; Platelet Count 205 K/mcL (140-400); Red Blood Count 4.38 M/mcL (3.82-4.97); Red Cell Distribution Width 15.4 % (11.5-14.5); Segmented Neutrophils % 70.1 %; White Blood Count 9.9 K/mcL (4.3-11.1)
[2020-10-29 14:12] LABS: Basophils # 0.1 K/mcL (0.0-0.2); Basophils % 0.5 %; Eosinophils # 0.3 K/mcL (0.0-0.6); Eosinophils % 2.8 %; Lymphocytes # 1.8 K/mcL (0.6-4.6); Monocytes # 0.8 K/mcL (0.0-1.3)
[2020-10-29 14:18] LABS: INR 1.1
[2020-10-29 14:21] LABS: Activated Partial Thrombo Time 29.3 Seconds (26.0-36.0)
[2020-10-29 15:03] LABS: BUN/Creatinine Ratio 22 (6-26); Blood Urea Nitrogen 20 mg/dL (8-23); Carbon Dioxide 27 mEq/L (23-29); Chloride 104 mEq/L (98-107); Glucose 136 mg/dL (70-105); Osmolality,Calculated 291 (280-300); Potassium 4.3 mEq/L (3.5-5.1); Sodium 138 mEq/L (136-145); Troponin I < 0.03 ng/mL (< 0.04); eGFR For African Americans > 60 (> 60); eGFR For Non-African Americans > 60 (> 60)
[2020-10-29] MEDS: Nitroglycerin 0.4 MG TAB.SUBL SL ONE ×2 (15:45→15:59)
[2020-10-29] MEDS ORDERED: Naloxone 0.4 MG/ML INJ IVP PRN (16:59)
[2020-10-29] MEDS ORDERED: D5% in Water 1,000 ML IVC PRN (17:01)
[2020-10-29] MEDS ORDERED: Dextrose Gel 15 GM/37.5 ML TUBE PO PRN ×2 (17:01)
[2020-10-29] MEDS ORDERED: *HR* Dextrose 50 % in Water (Vial) 50 ML VIAL IVP PRN (17:01)
[2020-10-29] MEDS ORDERED: Perflutren Lipid Microsphere 1.3 ML in 0.9 % Sodium Chloride 8.7 ML IVP PRN (17:01)
[2020-10-29] MEDS: *HR* Heparin 5,000 UNIT/ML VIAL SQ SCH (18:45)
[2020-10-29] MEDS: Latanoprost 2.5 ML BOTTLE BOTH EYES SCH (23:03)
[2020-10-30 02:11] LABS: Hematocrit 38.5 % (35.3-44.9); Mean Corpuscular HGB Conc 31.2 g/dL (31.6-35.5); Mean Corpuscular Volume 89.7 fL (83.0-100.0); Mean Platelet Volume 11.2 fL (9.4-12.4); Platelet Count 199 K/mcL (140-400); Red Blood Count 4.29 M/mcL (3.82-4.97); Red Cell Distribution Width 15.7 % (11.5-14.5); White Blood Count 9.3 K/mcL (4.3-11.1)
[2020-10-30] MEDS: *HR* LORazepam 1 MG TABLET PO PRN ×2 (02:11→21:07)
[2020-10-30 02:28] LABS: BUN/Creatinine Ratio 27 (6-26); Blood Urea Nitrogen 24 mg/dL (8-23); Calcium 9.2 mg/dL (8.6-10.3); Carbon Dioxide 26 mEq/L (23-29); Chloride 106 mEq/L (98-107); Chol/HDL Ratio 4.2 (0-4.9); Glucose 159 mg/dL (70-105); Osmolality,Calculated 295 (280-300); Potassium 3.8 mEq/L (3.5-5.1); Sodium 139 mEq/L (136-145); eGFR For African Americans > 60 (> 60); eGFR For Non-African Americans > 60 (> 60)
[2020-10-30] MEDS: *HR* Heparin 5,000 UNIT/ML VIAL SQ SCH ×3 (06:24→21:07)
[2020-10-30] MEDS ORDERED: Regadenoson 0.4 MG/5 ML SYRINGE IVP ONE (06:56)
[2020-10-30] MEDS: Insulin LISPRO 300 UNITS/3 ML VIAL SUBQ SCH ×3 (08:19→17:09)
[2020-10-30] MEDS: Aspirin 81 MG TAB.CHEW PO SCH (09:58)
[2020-10-30] MEDS ORDERED: lisinopriL 10 MG TABLET PO SCH (11:45)
[2020-10-30] MEDS ORDERED: amLODIPine 5 MG TABLET PO SCH (12:00)
[2020-10-30 12:59] LABS: Estimated Average Glucose 126 mg/dl
[2020-10-30] MEDS: amLODIPine 5 MG TABLET PO SCH (19:48)
[2020-10-30] MEDS: Latanoprost 2.5 ML BOTTLE BOTH EYES SCH (19:51)
[2020-10-30] MEDS ORDERED: Gabapentin 300 MG CAPSULE PO SCH (21:00)
[2020-10-31] MEDS: *HR* Heparin 5,000 UNIT/ML VIAL SQ SCH ×2 (05:54→13:24)
[2020-10-31 06:03] LABS: BUN/Creatinine Ratio 24 (6-26); Blood Urea Nitrogen 25 mg/dL (8-23); Calcium 9.7 mg/dL (8.6-10.3); Carbon Dioxide 28 mEq/L (23-29); Chloride 104 mEq/L (98-107); Glucose 115 mg/dL (70-105); Osmolality,Calculated 291 (280-300); Sodium 138 mEq/L (136-145); eGFR For African Americans > 60 (> 60); eGFR For Non-African Americans 54 (> 60)
[2020-10-31] MEDS ORDERED: Regadenoson 0.4 MG/5 ML SYRINGE IVP ONE (06:24)
[2020-10-31] MEDS: Insulin LISPRO 300 UNITS/3 ML VIAL SUBQ SCH ×3 (07:21→16:16)
[2020-10-31] MEDS: amLODIPine 5 MG TABLET PO SCH (07:33)
[2020-10-31] MEDS: Aspirin 81 MG TAB.CHEW PO SCH (07:33)
[2020-10-31] MEDS ORDERED: *HR* LORazepam 1 MG TABLET PO PRN (13:55)
[2020-10-31] MEDS ORDERED: Ergocalciferol (VIT D2) 50,000 UNIT (1.25MG) CAP PO SCH (14:00)
[2020-10-31] MEDS ORDERED: *HR* SitaGLIPtin 100 MG TABLET PO SCH (14:00)
[2020-10-31] MEDS ORDERED: Gabapentin 300 MG CAPSULE PO SCH (14:15)
[2020-10-31 16:11] VITALS: BP 148/81
[2020-10-31] MEDS ORDERED: Famotidine 20 MG TABLET PO SCH (21:00)
[2020-10-31] MEDS ORDERED: Latanoprost 2.5 ML BOTTLE BOTH EYES SCH (21:00)
[2020-10-31] MEDS ORDERED: NON-FORMULARY MEDICATION 1 EACH EACH (Potassium Chloride [Klor-Con 10] 10 MEQ Tablet.Er) PO SCH (21:00)
[2020-10-31] MEDS ORDERED: Budesonide/Formoterol 160/4.5 1 PUFF INH IH SCH (22:00)
[2020-11-01] MEDS ORDERED: Famotidine 20 MG TABLET PO SCH (09:00)
[2020-11-01] MEDS ORDERED: PARoxetine 20 MG TABLET PO SCH (09:00)
[2020-11-01] MEDS ORDERED: (Mirabegron [Myrbetriq] 25 MG Tab.Er.24h) PO SCH (09:00)
== END 2020-10-31 17:34 | disposition home or self-care (01) ==
LOC: 2ANU 13:34 → EMEROOARM 13:34 → SUATTDRO 15:57 → 2ANU 17:51
PROVIDERS: ADMIT Internal Medicine; ATTEND General Practice

== ENCOUNTER 2020-11-16 10:02 | Observation (INO) ==
[2020-11-16 10:43] LABS: Basophils # 0.1 K/mcL (0.0-0.2); Basophils % 0.6 %; Eosinophils # 0.3 K/mcL (0.0-0.6); Eosinophils % 3.4 %; Hematocrit 39.7 % (35.3-44.9); Hemoglobin 12.3 g/dL (11.5-15.4); Immature Granulocytes % 0.9 % (0-4); Lymphocytes # 1.3 K/mcL (0.6-4.6); Lymphocytes % 16.3 %; Mean Corpuscular Hemoglobin 28.3 pg (28.0-33.3); Mean Corpuscular Volume 91.5 fL (83.0-100.0); Mean Platelet Volume 11.2 fL (9.4-12.4); Monocytes # 0.6 K/mcL (0.0-1.3); Monocytes % 7.6 %; Neutrophils # 5.6 K/mcL (1.6-8.9); Platelet Count 181 K/mcL (140-400); Red Blood Count 4.34 M/mcL (3.82-4.97); Segmented Neutrophils % 71.2 %; White Blood Count 7.9 K/mcL (4.3-11.1)
[2020-11-16 11:01] LABS: BUN/Creatinine Ratio 19 (6-26); Blood Urea Nitrogen 18 mg/dL (8-23); Calcium 9.1 mg/dL (8.6-10.3); Carbon Dioxide 26 mEq/L (23-29); Chloride 106 mEq/L (98-107); Glucose 153 mg/dL (70-105); Osmolality,Calculated 291 (280-300); Potassium 4.2 mEq/L (3.5-5.1); Sodium 138 mEq/L (136-145); Troponin I < 0.03 ng/mL (< 0.04); eGFR For African Americans > 60 (> 60); eGFR For Non-African Americans > 60 (> 60)
[2020-11-16] MEDS ORDERED: Naloxone 0.4 MG/ML INJ IVP PRN (11:41)
[2020-11-16] MEDS ORDERED: Heparin 1,000 UNITS/500 mL 500 ML ONE (14:25)
[2020-11-16] MEDS ORDERED: Nitroglycerin 1,000 MCG/5 ML VIAL IV ONE (14:25)
[2020-11-16] MEDS ORDERED: ISOVUE-370 200 ML INFUS..BTL ONE (14:25)
[2020-11-16] MEDS ORDERED: *HR* Heparin 10,000 UNIT/10 ML VIAL ONE (14:25)
[2020-11-16] MEDS ORDERED: 0.9 % Sodium Chloride 2,000 ML ONE (14:25)
[2020-11-16] MEDS ORDERED: *HR* FentaNYL (PF) 100 MCG/2 ML VIAL ONE (14:37)
[2020-11-16] MEDS ORDERED: *HR* Midazolam HCl 2 MG/2 ML VIAL ONE (14:37)
[2020-11-16] MEDS ORDERED: Nitroglycerin Spray 4.9 GM BOTTLE ONE (14:52)
[2020-11-16] MEDS ORDERED: hydrOXYzine pamoate 25 MG CAPSULE PO PRN (15:44)
[2020-11-16] MEDS ORDERED: Budesonide/Formoterol 160/4.5 1 PUFF INH IH PRN (15:44)
[2020-11-16] MEDS ORDERED: Dextrose Gel 15 GM/37.5 ML TUBE PO PRN ×2 (15:46)
[2020-11-16] MEDS ORDERED: *HR* Dextrose 50 % in Water (Vial) 50 ML VIAL IVP PRN (15:46)
[2020-11-16] MEDS ORDERED: D5% in Water 1,000 ML IVC PRN (15:46)
[2020-11-16] MEDS: carvediloL 25 MG TABLET PO SCH ×2 (16:18→16:33)
[2020-11-16] MEDS: Insulin LISPRO 300 UNITS/3 ML VIAL SUBQ SCH (16:29)
[2020-11-16] MEDS ORDERED: Insulin LISPRO 300 UNITS/3 ML VIAL SUBQ SCH (21:00)
[2020-11-16] MEDS ORDERED: Gabapentin 300 MG CAPSULE PO SCH (21:00)
[2020-11-16] MEDS ORDERED: Latanoprost 2.5 ML BOTTLE BOTH EYES SCH (21:00)
[2020-11-16] MEDS ORDERED: *HR* LORazepam 1 MG TABLET PO SCH (21:00)
[2020-11-17 04:34] LABS: Basophils % 0.3 %; Eosinophils # 0.3 K/mcL (0.0-0.6); Eosinophils % 2.8 %; Hemoglobin 11.8 g/dL (11.5-15.4); Immature Granulocytes % 0.7 % (0-4); Lymphocytes # 1.8 K/mcL (0.6-4.6); Lymphocytes % 20.1 %; Mean Corpuscular HGB Conc 30.3 g/dL (31.6-35.5); Mean Corpuscular Hemoglobin 27.9 pg (28.0-33.3); Mean Corpuscular Volume 92.2 fL (83.0-100.0); Mean Platelet Volume 11.4 fL (9.4-12.4); Monocytes # 0.9 K/mcL (0.0-1.3); Monocytes % 10.3 %; Platelet Count 195 K/mcL (140-400); Red Blood Count 4.23 M/mcL (3.82-4.97); Red Cell Distribution Width 15.4 % (11.5-14.5); Segmented Neutrophils % 65.8 %; White Blood Count 9.1 K/mcL (4.3-11.1)
[2020-11-17 04:56] LABS: BUN/Creatinine Ratio 24 (6-26); Blood Urea Nitrogen 24 mg/dL (8-23); Calcium 9.4 mg/dL (8.6-10.3); Carbon Dioxide 30 mEq/L (23-29); Chloride 106 mEq/L (98-107); Glucose 130 mg/dL (70-105); Osmolality,Calculated 292 (280-300); Potassium 4.5 mEq/L (3.5-5.1); Sodium 138 mEq/L (136-145); eGFR For African Americans > 60 (> 60); eGFR For Non-African Americans 56 (> 60)
[2020-11-17] MEDS: Insulin LISPRO 300 UNITS/3 ML VIAL SUBQ SCH (07:42)
[2020-11-17] MEDS: carvediloL 25 MG TABLET PO SCH (07:54)
[2020-11-17] MEDS ORDERED: Cyanocobalamin (B-12) 1,000 MCG TABLET PO SCH (09:00)
[2020-11-17] MEDS ORDERED: Gabapentin 300 MG CAPSULE PO SCH (09:00)
[2020-11-17] MEDS ORDERED: amLODIPine 5 MG TABLET PO SCH (09:00)
[2020-11-17] MEDS ORDERED: PARoxetine 20 MG TABLET PO SCH (09:00)
[2020-11-17] MEDS ORDERED: Famotidine 20 MG TABLET PO SCH (09:00)
[2020-11-17] MEDS ORDERED: Aspirin Enteric Coated 81 MG Tablet PO SCH (09:00)
[2020-11-17 10:37] VITALS: BP 120/78
[2020-11-20] MEDS ORDERED: Ergocalciferol (VIT D2) 50,000 UNIT (1.25MG) CAP PO SCH (15:44)
== END 2020-11-17 12:06 | disposition home or self-care (01) ==
LOC: 3BNU 10:02 → EMEROOARM 10:02 → SUATTDRO 12:53 → 3BNU 13:19
PROVIDERS: ADMIT Internal Medicine; ATTEND Internal Medicine